=== PATIENT | female | born 1965 | race Caucasian/White ===

== ENCOUNTER 2020-05-11 08:22 | Outpatient (REF) | payer OTHER, SELFPAY ==
--- NOTE | ~2020-05-11 | MM_ITS ---
EXAMINATION: MM SCREENING DIGITAL BREAST TOMOSYNTHESIS, BILATERAL CLINICAL INFORMATION: Screening. Asymptomatic. The lifetime risk of breast cancer based on the Tyrer-Cuzick Model is 11%. COMPARISON: Mammography: 04/24/2019, 04/30/2018, 09/23/2017, 04/24/2017, targeted left breast ultrasound 09/23/2017 TECHNIQUE: Digital breast tomosynthesis is performed in both the craniocaudal and mediolateral oblique views along with computer-aided detection (CAD). Synthesized 2D images are generated from the tomosynthesis. FINDINGS: There are scattered areas of fibroglandular density (ACR BI-RADS breast composition Category b). Parenchymal pattern is similar to prior exams. There is no interval mass or architectural abnormality or developing density. Right breast shows no abnormal calcifications. The axilla and skin contours are unremarkable. There are loosely grouped punctate calcifications posterior 12:30 o'clock left breast better appreciated on CC view synthesized image. Patient will be recalled for additional magnification views to further characterize. MM/MM tomosynthesis screening BI IMPRESSION: 1. Left: Calcifications 12:30 o'clock position. 2. Right: No mammographic evidence of malignancy. ASSESSMENT: BI-RADS 0: Incomplete - Need Additional Imaging Evaluation RECOMMENDATION: 1. Additional views of the left breast (magnification CC, magnification ML). 2. Radiology department staff will contact the patient for additional imaging. This patient's information was entered into a reminder system with a target due date for their next mammogram.
== END 2020-05-11 08:23 | disposition home or self-care (01) ==
LOC: HO.MAMMO 08:22
PROVIDERS: PCP Internal Medicine; Visit Provider Internal Medicine
DX: Z12.31 Encounter for screening mammogram for malignant neoplasm of breast (principal)
CPT/HCPCS: 77063; 77067

== ENCOUNTER 2020-05-15 09:33 | Outpatient (REF) | payer OTHER, SELFPAY ==
--- NOTE | ~2020-05-15 | MM_ITS ---
EXAMINATION: MM DIAGNOSTIC DIGITAL MAMMOGRAPHY, LEFT CLINICAL INFORMATION: Recall from screening for loosely grouped calcifications 12:30 o'clock left breast COMPARISON: Mammography: 05/11/2020, 05/06/2019, 04/30/2018, 09/23/2017 TECHNIQUE: Digital mammography is performed in the following views: Magnification left CC, magnification left ML x2. FINDINGS: There are scattered areas of fibroglandular density (ACR BI-RADS breast composition Category b). The additional views show some punctate round calcifications in the area of interest 12:30 o'clock position. They appear decreased in number from the synthesized screening images recently performed, suggesting some element of superimposed digital processing artifact. There are likely unchanged since 2019. Calcifications will be reassessed again in 6 months to include magnification views. Results are discussed with the patient at time of visit. MM/MM added views LT IMPRESSION: Probable benign calcifications 12:30 o'clock position left breast. ASSESSMENT: BI-RADS 3: Probably Benign RECOMMENDATION: Diagnostic left mammography in 6 months. This patient's information was entered into a reminder system with a target due date for their next mammogram.
== END 2020-05-15 09:34 | disposition home or self-care (01) ==
LOC: HO.MAMMO 09:33
PROVIDERS: Visit Provider Internal Medicine
DX: R92.1 Mammographic calcification found on diagnostic imaging of breast (principal)
CPT/HCPCS: 77065

== ENCOUNTER 2020-11-13 11:56 | Outpatient (REF) | payer OTHER, SELFPAY ==
--- NOTE | ~2020-11-13 | MM_ITS ---
EXAMINATION: MM DIAGNOSTIC DIGITAL BREAST TOMOSYNTHESIS, LEFT CLINICAL INFORMATION: Short interval six-month follow-up probable benign calcifications 12:30 o'clock left breast. The lifetime risk of breast cancer based on the Tyrer-Cuzick Model is 11%. COMPARISON: Mammography: 05/15/2020, 05/11/2020 (BI-RADS 0), 05/06/2019, 04/30/2018, 24/04/2017, 04/24/2017 TECHNIQUE: Digital breast tomosynthesis is performed in both the craniocaudal and mediolateral oblique views along with computer-aided detection (CAD). Synthesized 2D images are generated from the tomosynthesis. Additional magnification CC x2 and magnification ML views are obtained. FINDINGS: There are scattered areas of fibroglandular density (ACR BI-RADS breast composition Category b). Parenchymal pattern is similar to prior studies. The fine calcifications 12:30 position for follow-up are stable. There are no increasing calcifications or pleomorphic types. The initial exam prompting recall likely had superimposed digital processing artifact. Calcifications will be reassessed again at time of annual bilateral exam, due in 6 months. Results are provided to the patient at time of visit by the technologist. MM/MM tomosynthesis diagnostic LT IMPRESSION: Probable benign calcifications stable. ASSESSMENT: BI-RADS 3: Probably Benign RECOMMENDATION: Diagnostic mammography at time of annual exam, due in 6 months. This patient's information was entered into a reminder system with a target due date for their next mammogram.
== END 2020-11-13 11:57 | disposition home or self-care (01) ==
LOC: HO.MAMMO 11:56
PROVIDERS: Visit Provider Internal Medicine
DX: R92.1 Mammographic calcification found on diagnostic imaging of breast (principal)
CPT/HCPCS: 77061; 77065

== ENCOUNTER 2021-05-16 12:32 | Outpatient (REF) | payer OTHER, SELFPAY ==
--- NOTE | ~2021-05-16 | MM_ITS ---
EXAMINATION: MM DIAGNOSTIC DIGITAL BREAST TOMOSYNTHESIS, BILATERAL CLINICAL INFORMATION: Follow up left breast calcifications. Yearly right breast study. The lifetime risk of breast cancer based on the Tyrer-Cuzick Model is 10.8%. COMPARISON: Mammography: November 13, 2020 and studies dating back to September 04, 2011 TECHNIQUE: Digital breast tomosynthesis is performed in both the craniocaudal and mediolateral oblique views along with computer-aided detection (CAD). Synthesized 2D images are generated from the tomosynthesis. FINDINGS: The breasts are almost entirely fatty (ACR BI-RADS breast composition Category a). There are no significant masses, abnormal calcifications, or other abnormalities. There is stability of grouping of calcifications about the upper outer aspect of the left breast. Results are provided to the patient at time of visit by the technologist. MM/MM tomosynthesis diagnostic BI IMPRESSION: There are no significant changes from prior study. ASSESSMENT: BI-RADS 3: Probably Benign RECOMMENDATION: Diagnostic mammography at time of next annual exam, due in 12 months. This patient's information was entered into a reminder system with a target due date for their next mammogram.
== END 2021-05-16 12:33 | disposition home or self-care (01) ==
LOC: HO.MAMMO 12:32
PROVIDERS: PCP Internal Medicine; Visit Provider Internal Medicine
DX: R92.1 Mammographic calcification found on diagnostic imaging of breast (principal)
CPT/HCPCS: 77062; 77066

== ENCOUNTER 2021-10-29 06:26 | Outpatient (REF) | payer OTHER, SELFPAY ==
[2021-10-29 08:28] LABS: MANUAL DIFF FLAG NO
[2021-10-29 08:34] LABS: Basophils Absolute Auto 0.1 X10*3/uL (0.0-0.2); Basophils Percent Auto 0.4 % (0-2); Eosinophils Absolute Auto 0.4 X10*3/uL (0.0-0.4); Eosinophils Percent Auto 2.7 % (0-4); Hematocrit 45.7 % (37.0-47.0); Hemoglobin 15.1 g/dl (12.0-16.0); Imm Gran Abs Auto 0.06 X10*3/uL (0.00-0.03); Imm Gran Pct Auto 0.4 % (0.0-0.4); Lymphocytes Percent Auto 28.6 % (20-40); Mean Corpuscular Hemoglobin 30.8 pg (27.0-33.0); Mean Corpuscular Volume 93.3 fL (80.0-98.0); Mean Platelet Volume 10.2 fL (9.4-12.3); Monocytes Absolute Auto 0.8 X10*3/uL (0.1-1.2); Monocytes Percent Auto 5.8 % (2-11); Neutrophils Absolute Auto 8.7 x10*3/uL (2.0-8.3); Neutrophils Percent Auto 62.1 % (45-73); Platelet Count 278 X10*3/uL (160-400); White Blood Count 13.9 X10*3/uL (4.8-10.8)
[2021-10-29 08:47] LABS: Alanine Aminotransferase 16 U/L (0-31); Albumin Level 4.3 g/dL (3.5-5.0); Alkaline Phosphatase 103 U/L (39-117); Anion Gap 14 (12-20); Aspartate Amino Transferase 20 U/L (5-31); Bilirubin Total 0.9 mg/dL (0.0-1.0); Blood Urea Nitrogen 13 mg/dL (9-16); Calcium 9.4 mg/dL (8.4-10.2); Carbon Dioxide 26 mmol/L (22-29); Chloride 105 mmol/L (96-108); Cholesterol 267 mg/dL; Estimated Glomerular Filt Rate > 60; Glucose Fasting 112 mg/dL (60-99); HDL Cholesterol 37 mg/dL; LDL Cholesterol Calculated 177 mg/dl; Potassium 4.7 mmol/L (3.3-5.1); Sodium 140 mmol/L (135-145); Total Protein 7.4 g/dL (6.5-8.0); Triglycerides 265 mg/dL
[2021-10-29 09:12] LABS: TSH reflex Free T4 1.45 uIU/mL (0.32-4.0)
== END 2021-10-29 06:27 | disposition home or self-care (01) ==
LOC: HO.HMGCLDS 06:26
PROVIDERS: Visit Provider Internal Medicine
DX: E66.09 Other obesity due to excess calories (principal); I77.9 Disorder of arteries and arterioles, unspecified; M79.89 Other specified soft tissue disorders; Z72.0 Tobacco use
CPT/HCPCS: 36415; 80053; 80061; 84443; 85025

== ENCOUNTER 2022-01-19 06:15 | Outpatient (REF) | payer OTHER, SELFPAY ==
[2022-01-19 11:20] LABS: MANUAL DIFF FLAG NO
[2022-01-19 11:45] LABS: Basophils Absolute Auto 0.1 X10*3/uL (0.0-0.2); Basophils Percent Auto 0.6 % (0-2); Eosinophils Absolute Auto 0.5 X10*3/uL (0.0-0.4); Eosinophils Percent Auto 3.9 % (0-4); Hematocrit 45.4 % (37.0-47.0); Hemoglobin 14.9 g/dl (12.0-16.0); Imm Gran Abs Auto 0.05 X10*3/uL (0.00-0.03); Imm Gran Pct Auto 0.4 % (0.0-0.4); Lymphocytes Absolute Auto 4.7 X10*3/uL (1.2-4.9); Lymphocytes Percent Auto 38.5 % (20-40); Mean Corpuscular HGB Conc 32.8 g/dl (31.0-35.0); Mean Corpuscular Volume 94.6 fL (80.0-98.0); Mean Platelet Volume 10.8 fL (9.4-12.3); Monocytes Absolute Auto 0.8 X10*3/uL (0.1-1.2); Monocytes Percent Auto 6.9 % (2-11); Neutrophils Percent Auto 49.7 % (45-73); Platelet Count 257 X10*3/uL (160-400); Red Cell Distribution Width 14.8 % (11.0-16.0); White Blood Count 12.1 X10*3/uL (4.8-10.8)
[2022-01-19 12:10] LABS: Alanine Aminotransferase 16 U/L (0-31); Anion Gap 15 (12-20); Aspartate Amino Transferase 20 U/L (5-31); Blood Urea Nitrogen 13 mg/dL (9-16); Calcium 9.4 mg/dL (8.4-10.2); Carbon Dioxide 26 mmol/L (22-29); Chloride 105 mmol/L (96-108); Cholesterol 271 mg/dL; Estimated Glomerular Filt Rate > 60; Glucose Fasting 122 mg/dL (60-99); HDL Cholesterol 36 mg/dL; LDL Cholesterol Calculated 172 mg/dl; Potassium 5.1 mmol/L (3.3-5.1); Sodium 141 mmol/L (135-145); Triglycerides 319 mg/dL
[2022-01-19 12:37] LABS: Vitamin D 25-OH Total 21.5 ng/mL (>30)
== END 2022-01-19 06:16 | disposition home or self-care (01) ==
LOC: HO.HMGCLDS 06:15
PROVIDERS: PCP Internal Medicine; Visit Provider Internal Medicine
DX: E66.09 Other obesity due to excess calories (principal); I73.9 Peripheral vascular disease, unspecified; I77.9 Disorder of arteries and arterioles, unspecified; I83.11 Varicose veins of right lower extremity with inflammation; Z72.0 Tobacco use
CPT/HCPCS: 36415; 80048; 80061; 82306; 84450; 84460; 85025

== ENCOUNTER 2022-02-16 07:33 | Outpatient (REF) | payer OTHER, SELFPAY ==
--- NOTE | ~2022-02-16 | US_ITS ---
EXAMINATION: US LOWER EXTREMITY VENOUS (REFLUX EXAM), BILATERAL CLINICAL INDICATION: Chronic venous insufficiency with lower extremity varicose veins COMPARISON: None. TECHNIQUE: Color flow triplex imaging and compression Doppler was performed to evaluate both the deep and the superficial systems bilaterally. To evaluate the superficial system, the examination was performed in the upright position. Color-flow Doppler ultrasound and compression ultrasound were utilized. In addition, maneuvers were utilized to demonstrate reflux. FINDINGS: 1. DEEP VENOUS ULTRASOUND OF THE RIGHT LOWER EXTREMITY: Common Femoral Vein: Compressible, normal respiratory variation and augmented flow. Femoral Vein: Compressible, normal color flow and augmentation. Popliteal Vein: Compressible, normal augmentation. Deep Reflux: There is no evidence of reflux in the deep system in either the common femoral vein or the popliteal vein. There is no evidence of a Issa's cyst. 2. SUPERFICIAL ULTRASOUND WITH DOPPLER OF RIGHT LOWER EXTREMITY: GREAT SAPHENOUS VEIN: Saphenofemoral Junction: 0.7 cm; Reflux: 0 ms Proximal Thigh: 0.5 cm; Reflux: 0 ms Mid Thigh: 0.2 cm; occluded Above Knee: 0.2 cm; occluded At Knee: 0.2 cm; occluded Below Knee: 0.2 cm; Reflux: 0 ms Mid Calf: 0.1 cm; Reflux: 0 ms Ankle: 0.1 cm; Reflux: 0 ms DUPLICATED MEDIAL GREAT SAPHENOUS VEIN: Diameter: None Imaged Reflux: NA DUPLICATED LATERAL GREAT SAPHENOUS VEIN: Diameter: 0.2 cm Reflux: 1546 ms SMALL SAPHENOUS VEIN: Proximal: 0.5 cm; Reflux: 0 ms Mid: 0.2 cm; reflux: 1400 ms Distal: 0.2 cm; Reflux: 0 ms VEIN OF GIACOMINI: None Imaged. PERFORATORS: Location: None Imaged Size: NA Reflux: NA VARICOSITIES: Location: Mid calf off the small saphenous vein Size: 0.4 cm Reflux: 2760 ms 3. DEEP VENOUS ULTRASOUND OF THE LEFT LOWER EXTREMITY: Common Femoral Vein: Compressible, normal respiratory variation and augmented flow. Femoral Vein: Compressible, normal color flow and augmentation. Popliteal Vein: Compressible, normal augmentation. Deep Reflux: There is no evidence of reflux in the deep system in either the common femoral vein or the popliteal vein. There is no evidence of a Issa's cyst. 4. SUPERFICIAL ULTRASOUND WITH DOPPLER OF LEFT LOWER EXTREMITY: GREAT SAPHENOUS VEIN: Saphenofemoral Junction: 0.6 cm; Reflux: 0 ms Proximal Thigh: 0.4 cm; Reflux: 2656 ms Mid Thigh: 0.3 cm; Reflux: 0 ms Above Knee: 0.2 cm; Reflux: 0 ms At Knee: 0.2 cm; Reflux: 0 ms Below Knee: 0.2 cm; Reflux: 0 ms Mid Calf: 0.1 cm; Reflux: 0 ms Ankle: 0.2 cm; Reflux: 0 ms DUPLICATED MEDIAL GREAT SAPHENOUS VEIN: Diameter: 0.3 cm Reflux: None DUPLICATED LATERAL GREAT SAPHENOUS VEIN: Diameter: None Imaged Reflux: NA SMALL SAPHENOUS VEIN: Proximal: 0.1 cm; Reflux: 0 ms Distal: 0.2 cm; Reflux: 0 ms VEIN OF GIACOMINI: None Imaged. PERFORATORS: Location: None Imaged Size: NA Reflux: NA VARICOSITIES: Location: Proximal thigh off the saphenofemoral junction and the great saphenous vein Size: 0.2 cm Reflux: Greater than 3 seconds US/US venous duplex LE BI IMPRESSION: Right: Occluded segment of the great saphenous vein through the mid and distal thigh to the knee. No significant reflux in the residual great saphenous vein. Focal area of reflux is seen in the mid small saphenous vein with associated varicose vein. Left: Focal reflux in the proximal great saphenous vein with branching varicose vein in the proximal thigh
--- NOTE | ~2022-02-16 | US_ITS ---
EXAMINATION: Noninvasive assessment of the bilateral lower extremities with ARTERIAL DUPLEX and ANKLE BRACHIAL INDICES (ABIs). CLINICAL INFORMATION: Peripheral vascular disease TECHNIQUE: Duplex Doppler techniques with waveform analysis and measurement of velocities in the bilateral common femoral, profunda femoris, superficial femoral, popliteal and tibial arteries were performed. Additionally, ankle pulse volume recordings, ankle pressure measurements and ankle brachial indices were obtained of the lower extremity arterial system bilaterally. The study was performed only at rest. COMPARISON: None FINDINGS: DIRECT DUPLEX DOPPLER FINDINGS: RIGHT LEG: Common femoral artery: 131 cm/s, phasicity: Biphasic Profunda femoris artery: 42.8 cm/s, phasicity: Biphasic Superficial femoral artery (proximal): 120 cm/s, phasicity: Biphasic Superficial femoral artery (mid): 103 cm/s, phasicity: Biphasic Superficial femoral artery (distal): 89.7 cm/s, phasicity: Biphasic Popliteal artery: 39.7 cm/s, phasicity: Biphasic Posterior tibial artery: 21 cm/s, phasicity: Monophasic. Note is also made of some retrograde flow in the more proximal posterior tibial artery Peroneal artery: 39.7 cm/s, phasicity: Monophasic, retrograde LEFT LEG: Common femoral artery: 55.0 cm/s, phasicity: Biphasic Profunda femoris artery: 103 cm/s, phasicity: Biphasic Superficial femoral artery (proximal): 41.6 cm/s, phasicity: Monophasic Superficial femoral artery (mid): 43.2 cm/s, phasicity: Monophasic Superficial femoral artery (distal): 91.1 cm/s, phasicity: Monophasic Popliteal artery: 45.6 cm/s, phasicity: Monophasic Posterior tibial artery: 21.0 cm/s, phasicity: Monophasic Peroneal artery: 23.6 cm/s, phasicity: Monophasic ANKLE-BRACHIAL INDEX: Right: 0.91? Left: 0.77 ANKLE PRESSURES: Right: PT 127, DP 141 Left: PT?119, DP?116 ANKLE PVR WAVEFORMS: Right: Abnormal Left: Abnormal US/US arterial duplex LE BI IMPRESSION: Right leg: Low-normal ankle-brachial index with dampened pulse volume waveforms. Patent flow seen in the common femoral, superficial femoral popliteal arteries. Dampened waveforms seen in the posterior tibial and peroneal arteries consistent with small vessel below-knee occlusive disease Left leg: Mildly decreased in ankle-brachial index with dampened pulse volume waveforms. Dampened monophasic waveforms and decreased velocity seen in the superficial femoral, popliteal and below-knee runoff vessels consistent with underlying occlusive disease CASTILLO Reference: - >1.4 = calcified vessels - 0.9 - 1.4 = normal - no significant arterial disease - 0.7 - 0.89 = mild peripheral arterial disease - 0.51 - 0.69 = moderate peripheral arterial disease - ? 0.50 = severe peripheral arterial disease - < .30 = critical arterial disease
== END 2022-02-16 07:34 | disposition home or self-care (01) ==
LOC: HO.US 07:33
PROVIDERS: Visit Provider Surgery Vascular Surgery
DX: I83.11 Varicose veins of right lower extremity with inflammation (principal); I77.9 Disorder of arteries and arterioles, unspecified
CPT/HCPCS: 93923; 93925; 93970

== ENCOUNTER 2022-03-11 06:05 | Day surgery (SDC) | payer OTHER, SELFPAY ==
[2022-03-11] VITALS (8 sets, daily range): BP systolic 109–122; BP diastolic 58–73; PULSE 68–72; RESP 14–18; TEMP 36.1–36.7; O2SAT 94–98; BMI 31.8
[2022-03-11 06:35] LABS: MANUAL DIFF FLAG NO
[2022-03-11 06:37] LABS: Basophils Absolute Auto 0.1 X10*3/uL (0.0-0.2); Basophils Percent Auto 0.5 % (0-2); Eosinophils Absolute Auto 0.4 X10*3/uL (0.0-0.4); Hematocrit 44.3 % (37.0-47.0); Hemoglobin 14.5 g/dl (12.0-16.0); Imm Gran Abs Auto 0.03 X10*3/uL (0.00-0.03); Imm Gran Pct Auto 0.3 % (0.0-0.4); Lymphocytes Absolute Auto 3.5 X10*3/uL (1.2-4.9); Lymphocytes Percent Auto 32.1 % (20-40); Mean Corpuscular HGB Conc 32.7 g/dl (31.0-35.0); Mean Corpuscular Hemoglobin 30.3 pg (27.0-33.0); Mean Corpuscular Volume 92.7 fL (80.0-98.0); Mean Platelet Volume 9.4 fL (9.4-12.3); Monocytes Absolute Auto 0.7 X10*3/uL (0.1-1.2); Monocytes Percent Auto 6.7 % (2-11); Neutrophils Absolute Auto 6.1 x10*3/uL (2.0-8.3); Neutrophils Percent Auto 56.4 % (45-73); Platelet Count 249 X10*3/uL (160-400); Red Blood Count 4.78 X10*6/uL (4.20-5.50); Red Cell Distribution Width 14.6 % (11.0-16.0); White Blood Count 10.9 X10*3/uL (4.8-10.8)
[2022-03-11 06:58] LABS: Blood Urea Nitrogen 12 mg/dL (9-16); Creatinine Clr Calc Pharmacy 85.2; Estimated Glomerular Filt Rate > 60
--- NOTE | 2022-03-11 09:11 | W.PM.OPN ---
Operative Note Operative Note Date of Service: 03/11/22 Narrative: Angiogram report from [facility] Preoperative diagnosis: Atherosclerosis of right lower extremity with activity limiting claudication Postoperative diagnosis: Same Procedure: 1. Ultrasound-guided left common femoral access 2. Aortogram with right lower extremity runoff 3. Right external iliac plasty Surgeon:Doron Nagy M.D., FACS, RPVI Patient Access:None Anesthesia: Local with moderate conscious sedation. Total intraservice moderate sedation time was 45 minutes. I monitored the patient's level of consciousness and physiologic status continuously throughout the procedure. Specimens:none Drains:none Estimated blood loss: Less than 10 ml Implant: Medtronic Impact DCB 6 x 40 Indications: 56-year-old female with a prior history of of claudication presents for endovascular intervention The patient has signed the informed consent after reviewing risks, complications, benefits, and alternatives previously discussed with the patient. The patient was given the opportunity to ask any additional questions or voice any concerns. All questions were answered to the patient's satisfaction. Procedure in detail: Patient was brought to the angiography suite prior to which a time-out was called for patient identification and site verification. Bilateral groins were prepped and draped in the standard surgical fashion. Under ultrasound guidance left common femoral was punctured with micro puncture needle and wire. Subsequently a precision 4 Indian sheath was then placed. Phanfareson wire was advanced to the level of the aorta. 4 Indian Flush catheter was brought up and parked at the level of the renal arteries. Aortogram was then undertaken. Catheter was brought down to the level of the iliac bifurcation. Iliacs were subsequently imaged. Catheter was then brought in up and over to the right side SFA. Runoff study was then undertaken. It was recognized that she had small caliber vessels all the way through. Concern was the right iliac tree. We then administered 5000 units of systemic heparin. After 5 minutes of circulation time a 6 Indian sheaths 25 cm in length was then placed. We brought it up just over the aortic bifurcation. We were then able to bring an 035 glidewire Advantage easily across these lesions into the common femoral and on to the SFA. Once this was all done we then took multiple orthogonal views we recognize that there was stenosis at the bifurcation but it did not appear to be flow limiting more concerning was the external iliac. This was 1st plasty with a 6 x 30 regular balloon. We then brought in a 6 x 40 drug coated balloon into the external iliac. This was brought into position in under 3 minutes and insufflated for a total of 3 minutes in duration. Once this was accomplished completion angiogram was performed. We noted a good result. Catheter wire sheath was brought back to the ipsilateral side. StarClose closure device was then deployed. Exofin was used as a sterile dressing. Patient tolerated the procedure well. At the end the case sponge instrument counts were correct. Interpretation of films: 1. Ultrasound demonstrates appropriate femoral puncture. Image of which was saved. 2. Aortogram demonstrates small caliber aorta. Minimal disease. Appropriate take-off of the renals. 3. Iliac images demonstrate disease at the bifurcation. Noted right at the worn. Stenosis on the right and left common iliac but not flow limiting. Moderate to severe right external iliac disease and stenosis. Good result post plasty. 4. Right Leg Common femoral artery: No significant disease Profundus Femoris: No significant disease Superficial femoral artery: No significant disease but small in caliber Popliteal artery (p1,p2,p3): No significant disease Anterior tibial artery: No significant disease Peroneal artery: No significant disease and dominant vessel Posterior tibial artery: Occluded Dorsalis pedis/plantar arch: Incomplete Conclusion: 1. Successful plasty of right external iliac. Of note vessels are small in caliber. 2. Anticoagulation status: Will require 6 months of aspirin and Plavix. This note is constructed using voice recognition software. While every effort has been made to ensure accuracy, corrections sergeant errors may have been included. Thank you for allowing me to participate in the care of your patient. Yours sincerely, Doron Nagy MD, FACS, R.P.V.I.
[2022-03-11] MEDS: Clopidogrel Bisulfate 300 MG TABLET PO (10:13)
== END 2022-03-11 11:19 | disposition home or self-care (01) ==
PROVIDERS: PCP Internal Medicine; Visit Provider Surgery Vascular Surgery
DX: I70.211 Atherosclerosis of native arteries of extremities with intermittent claudication, right leg (principal); I77.1 Stricture of artery; F17.210 Nicotine dependence, cigarettes, uncomplicated
CPT/HCPCS: 36415; 37220; 37224; 76937; 82565; 84520; 85025; 99152; 99153; C1725; C1760; C1769; C1887; J2250; J3010; Q9967

== ENCOUNTER → 2022-03-31 13:39 | Outpatient (BNVA) | payer OTHER, SELFPAY | PROVIDERS: PCP Internal Medicine; Visit Provider Surgery Vascular Surgery | DX: I77.9 Disorder of arteries and arterioles, unspecified (principal) ==

== ENCOUNTER 2022-05-18 14:48 | Outpatient (REF) | payer BC, SELFPAY ==
--- NOTE | ~2022-05-18 | MM_ITS ---
EXAMINATION: MM DIAGNOSTIC DIGITAL BREAST TOMOSYNTHESIS, BILATERAL CLINICAL INFORMATION: Due for yearly. Also follow-up probable benign calcifications 12:30 left breast. The lifetime risk of breast cancer based on the Tyrer-Cuzick Model is 11%. COMPARISON: Mammography: 05/16/2021, 11/13/2020, 05/15/2020, 05/11/2020 (BI-RADS 0), 05/06/2019 TECHNIQUE: Digital breast tomosynthesis is performed in both the craniocaudal and mediolateral oblique views along with computer-aided detection (CAD). Synthesized 2D images are generated from the tomosynthesis. Additional magnification left CC and magnification left ML views are obtained. FINDINGS: There are scattered areas of fibroglandular density (ACR BI-RADS breast composition Category b). Breast tissue composition borders on predominantly fatty. Background stromal and fibroglandular densities are similar to prior exams and there is no developing density or interval architectural abnormality. There are no abnormal calcifications. The axilla and skin contours are unremarkable. Left breast calcifications for follow-up are less conspicuous and decreased over time. There are no interval suspicious changes from prior diagnostic studies and they are now considered to be benign. Results are provided to the patient at time of visit by the technologist. MM/MM tomosynthesis diagnostic BI IMPRESSION: -No mammographic evidence of malignancy. -The left breast calcifications for follow-up are less conspicuous and decreased over time and now considered to be benign. ASSESSMENT: BI-RADS 2: Benign RECOMMENDATION: Routine annual mammography screening. This patient's information was entered into a reminder system with a target due date for their next mammogram.
== END 2022-05-18 14:49 | disposition home or self-care (01) ==
LOC: HO.MAMMO 14:48
PROVIDERS: PCP Internal Medicine; Visit Provider Internal Medicine
DX: R92.1 Mammographic calcification found on diagnostic imaging of breast (principal)
CPT/HCPCS: 77062; 77066

== ENCOUNTER 2022-06-09 07:50 | Outpatient (REF) | payer BC, SELFPAY ==
--- NOTE | ~2022-06-09 | US_ITS ---
EXAMINATION: ANKLE-BRACHIAL INDICES SINGLE LEVEL PULSE VOLUME RECORDING ARTERIAL DUPLEX BILATERAL LEGS CLINICAL INFORMATION: Peripheral vascular disease COMPARISON: 02/16/2022 TECHNIQUE: Ankle-brachial indices and PVR at the ankle were obtained. Duplex Doppler of the bilateral lower extremity arterial systems was performed. FINDINGS: RIGHT: Ankle-brachial index: 0.76, previous 0.91 PVR: Abnormal, dampened Common femoral: PSV 262 cm/s. Monophasic waveform. Deep femoral: PSV 70 cm/s. Monophasic waveform. Proximal superficial femoral: PSV 106 cm/s. Monophasic waveform. Mid superficial femoral: PSV 147 cm/s. Monophasic waveform. Distal superficial femoral: PSV 135 cm/s. Monophasic waveform. Popliteal: PSV 72 cm/s. Monophasic waveform. Posterior tibial: PSV 62 cm/s. Monophasic waveform. Peroneal: PSV 49 cm/s. Monophasic waveform. LEFT: Ankle-brachial index: 0.50, previous 0.77 PVR: Abnormal, dampened Common femoral: PSV 247 cm/s. Monophasic waveform. Deep femoral: PSV 80 cm/s. Monophasic waveform. Proximal superficial femoral: PSV 50 cm/s. Monophasic waveform. Mid superficial femoral: PSV 237 cm/s. Monophasic waveform. Focal occlusion. Distal superficial femoral: PSV 43 cm/s. Monophasic waveform. Popliteal: PSV 39 cm/s. Monophasic waveform. Posterior tibial: PSV 39 cm/s. Monophasic waveform. Peroneal: PSV 46 cm/s. Monophasic waveform. US/US arterial duplex LE BI IMPRESSION: Evidence of hemodynamically significant aortoiliac inflow disease (monophasic waveforms in both common femoral arteries). Right lower extremity: CASTILLO 0.76 (previous 0.91), abnormal PVR waveform. On Doppler diffuse monophasic waveforms throughout the lower extremity consistent with inflow disease. There is at least mild femoropopliteal disease. Left lower extremity: CASTILLO 0.50 (previous 0.77), abnormal PVR waveform. On Doppler diffuse monophasic waveforms throughout the lower extremity consistent with inflow disease. There is a focal occlusion in the mid superficial femoral artery with distal reconstitution.
--- NOTE | ~2022-06-09 | US_ITS ---
EXAMINATION: US RETROPERITONEAL LIMITED (AORTA) CLINICAL INFORMATION: Question abdominal aortic aneurysm; history of hypertension, tobacco use and diabetes. COMPARISON: None TECHNIQUE: Pressley-scale, color Doppler and spectral Doppler evaluation of the abdominal aorta. FINDINGS: The aorta is normal. The measurements of the aorta in maximum AP and transverse dimensions respectively are as follows: Proximal: 2.3 x 2.3 cm. Mid: 1.3 x 1.6 cm. Distal: 1.4 x 1.4 cm. PSV: 9.3 cm/s. The measurements of the common iliac arteries in maximum AP dimensions are as follows: Right Common Iliac Artery: 0.7 cm. Left Common Iliac Artery: 0.6 cm. US/US abdominal aortic aneurysm IMPRESSION: No abdominal aortic aneurysm is seen.
--- NOTE | ~2022-06-09 | US_ITS ---
EXAMINATION: ANKLE-BRACHIAL INDICES SINGLE LEVEL PULSE VOLUME RECORDING ARTERIAL DUPLEX BILATERAL LEGS CLINICAL INFORMATION: Peripheral vascular disease COMPARISON: 02/16/2022 TECHNIQUE: Ankle-brachial indices and PVR at the ankle were obtained. Duplex Doppler of the bilateral lower extremity arterial systems was performed. FINDINGS: RIGHT: Ankle-brachial index: 0.76, previous 0.91 PVR: Abnormal, dampened Common femoral: PSV 262 cm/s. Monophasic waveform. Deep femoral: PSV 70 cm/s. Monophasic waveform. Proximal superficial femoral: PSV 106 cm/s. Monophasic waveform. Mid superficial femoral: PSV 147 cm/s. Monophasic waveform. Distal superficial femoral: PSV 135 cm/s. Monophasic waveform. Popliteal: PSV 72 cm/s. Monophasic waveform. Posterior tibial: PSV 62 cm/s. Monophasic waveform. Peroneal: PSV 49 cm/s. Monophasic waveform. LEFT: Ankle-brachial index: 0.50, previous 0.77 PVR: Abnormal, dampened Common femoral: PSV 247 cm/s. Monophasic waveform. Deep femoral: PSV 80 cm/s. Monophasic waveform. Proximal superficial femoral: PSV 50 cm/s. Monophasic waveform. Mid superficial femoral: PSV 237 cm/s. Monophasic waveform. Focal occlusion. Distal superficial femoral: PSV 43 cm/s. Monophasic waveform. Popliteal: PSV 39 cm/s. Monophasic waveform. Posterior tibial: PSV 39 cm/s. Monophasic waveform. Peroneal: PSV 46 cm/s. Monophasic waveform. US/US CASTILLO complete IMPRESSION: Evidence of hemodynamically significant aortoiliac inflow disease (monophasic waveforms in both common femoral arteries). Right lower extremity: CASTILLO 0.76 (previous 0.91), abnormal PVR waveform. On Doppler diffuse monophasic waveforms throughout the lower extremity consistent with inflow disease. There is at least mild femoropopliteal disease. Left lower extremity: CASTILLO 0.50 (previous 0.77), abnormal PVR waveform. On Doppler diffuse monophasic waveforms throughout the lower extremity consistent with inflow disease. There is a focal occlusion in the mid superficial femoral artery with distal reconstitution.
== END 2022-06-09 07:51 | disposition home or self-care (01) ==
LOC: HO.US 07:50
PROVIDERS: PCP Internal Medicine; Visit Provider Surgery Vascular Surgery
DX: I70.213 Atherosclerosis of native arteries of extremities with intermittent claudication, bilateral legs (principal); E11.9 Type 2 diabetes mellitus without complications; I10 Essential (primary) hypertension; Z72.0 Tobacco use
CPT/HCPCS: 76706; 93923; 93925

== ENCOUNTER → 2022-06-11 15:17 | Outpatient (BNVA) | payer BC, SELFPAY | PROVIDERS: PCP Internal Medicine; Visit Provider Surgery Vascular Surgery | DX: Z13.89 Encounter for screening for other disorder (principal) ==

== ENCOUNTER → 2022-09-10 14:48 | Outpatient (BNVA) | payer BC, SELFPAY | PROVIDERS: PCP Internal Medicine; Visit Provider Surgery Vascular Surgery ==

== ENCOUNTER 2022-11-30 08:46 | Outpatient (REF) | payer BC, SELFPAY ==
--- NOTE | ~2022-11-30 | US_ITS ---
EXAMINATION: ANKLE-BRACHIAL INDICES SINGLE LEVEL PULSE VOLUME RECORDING ARTERIAL DUPLEX BILATERAL LEGS CLINICAL INFORMATION: Peripheral vascular disease COMPARISON: 06/09/2022 TECHNIQUE: Ankle-brachial indices and PVR at the ankle were obtained. Duplex Doppler of the bilateral lower extremity arterial systems was performed. FINDINGS: RIGHT: Ankle-brachial index: 0.92, previous 0.76 PVR: Abnormal, dampened Common femoral: PSV 119 cm/s. Monophasic waveform. Deep femoral: PSV 87 cm/s. Monophasic waveform. Proximal superficial femoral: PSV 80 cm/s. Monophasic waveform. Mid superficial femoral: PSV 130 cm/s. Monophasic waveform. Distal superficial femoral: PSV 96 cm/s. Monophasic waveform. Popliteal: PSV 55 cm/s. Monophasic waveform. Posterior tibial: PSV 38 cm/s. Monophasic waveform. Peroneal: PSV 31 cm/s. Monophasic waveform. LEFT: Ankle-brachial index: 0.71, previous 0.50 PVR: Abnormal, dampened Common femoral: PSV 84 cm/s. Monophasic waveform. Deep femoral: PSV 105 cm/s. Monophasic waveform. Proximal superficial femoral: PSV 67 cm/s. Monophasic waveform. Mid superficial femoral: PSV 19 cm/s. Monophasic waveform. Distal superficial femoral: PSV 27 cm/s. Monophasic waveform. Popliteal: PSV 49 cm/s. Monophasic waveform. Posterior tibial: PSV 33 cm/s. Monophasic waveform. Peroneal: PSV 22 cm/s. Monophasic waveform. US/US arterial duplex LE BI IMPRESSION: Right lower extremity: CASTILLO 0.92 (previous 0.76), abnormal PVR waveform. On Doppler diffuse monophasic waveforms throughout the lower extremity consistent with inflow disease. There is at least mild femoropopliteal disease. Left lower extremity: CASTILLO 0.71 (previous 0.50), abnormal PVR waveform. On Doppler diffuse monophasic waveforms throughout the lower extremity consistent with inflow disease. There is at least moderate mid superficial femoral artery disease.
--- NOTE | ~2022-11-30 | US_ITS ---
EXAMINATION: US RETROPERITONEAL LIMITED (AORTA) CLINICAL INFORMATION: Disorder of arteries and arterioles. COMPARISON: 06/09/2022 TECHNIQUE: Pressley-scale, color Doppler and spectral Doppler evaluation of the abdominal aorta and iliac arteries. FINDINGS: The aorta is atherosclerotic. Proximal: 2.5 cm. PSV 69 cm/s. Mid: 1.5 cm. PSV 77 cm/s. Distal: 1.7 cm. PSV 144 cm/s. The iliac arteries are atherosclerotic. Right Common Iliac Artery: PSV 187 cm/s. Biphasic waveform. Right External Iliac Artery: PSV 192 cm/s. Triphasic waveform. Left Common Iliac Artery: PSV 77 cm/s. Monophasic waveform. Left External Iliac Artery: PSV 130 cm/s. Biphasic waveform. US/US abdominal aortic aneurysm IMPRESSION: Negative for abdominal aortic aneurysm. Iliac atherosclerosis with suspected collateralized bilateral common iliac level disease.
== END 2022-11-30 08:47 | disposition home or self-care (01) ==
LOC: HO.US 08:46
PROVIDERS: PCP Internal Medicine; Visit Provider Surgery Vascular Surgery
DX: I77.9 Disorder of arteries and arterioles, unspecified (principal); I73.9 Peripheral vascular disease, unspecified
CPT/HCPCS: 76706; 93925

== ENCOUNTER 2022-12-17 13:53 | Outpatient (AMB) | payer BC, SELFPAY ==
--- NOTE | 2022-12-17 13:54 | MHC.OFFVIS ---
Intake Intake Visit Reasons: Follow Up 11/30 Arterial Ultrasound Intake Note: 3 mo follow up Arterial US 11/30/22 s/p Right angio 03/11/22. Pt states that bilateral LE are still painful and has Right LE swelling. Pt has pain w/ ambulation only Accompanied by: Nephew or Niece Allergies No Known Allergies Allergy (Verified 12/17/22 13:59) HPI Follow Up 11/30 Arterial Ultrasound HPI Details Very pleasant 57-year-old female presents for follow-up regarding peripheral vascular disease. She originally had right lower extremity intervention by us performed in March of 2022. In addition she has had prior back in spinal issues as well. After our initial intervention she did note mild improvement. It has gone back to wear was before clinically. She can barely walk about a half block. She notes that the pain is right greater than left. She now presents for follow-up with noninvasive testing. Of note she continues to smoke about a half a pack per day. [facility] Medical History Vitamin D deficiency Impaired fasting glucose Mixed dyslipidemia Varicose veins of right lower extremity with inflammation Claudication Tobacco abuse Obesity due to excess calories Surgical History Hx of colonoscopy Peripheral arterial occlusive disease Social History Housing: House Patient Tobacco Use Status: Current everyday Tobacco user Cigarettes Per Day: 10 e-Cigarette/Vaping Use: Never Used Second Hand Smoke Exposure: Yes service: No Current occupational status: employed Current occupational exposures/hazards: No Cognitive needs: No Hearing needs: No Vision needs: No Review of Systems Const All systems reviewed & are unremarkable except as noted in HPI and below Reports no additional complaints ENT Reports Normal hearing present Card Denies chest pain, Denies chest pain at rest, Denies chest pain with activity and Denies pedal edema Resp Denies cough GI Denies abdominal pain Musc Denies abnormal gait, Denies muscle cramps and Denies radiating pain into limb Skin/Breast Denies skin ulcer and Denies wounds Neuro Reports Normal hearing present and Denies abnormal gait Psych Reports no additional complaints Physical Exam Const General: cooperative, healthy appearing and comfortable Orientation/consciousness: oriented to person, oriented to place and oriented to time HEENT Head: Yes normal to inspection Neck Neck: Yes normal visual inspection Carotids: no bruits Chest Chest palpation & inspection: normal inspection of the chest Resp Effort & Inspection: normal respiratory effort and able to speak in complete sentences Auscultation: clear to auscultation bilaterally, no crackles, no rales, no rhonchi and no wheezes Cardio Other: Bilateral DP signals Rate: regular rate Rhythm: regular rhythm Heart sounds: S1 normal heart sound present and S2 normal heart sound present Bruits: no carotid bruits Peripheral pulses: Peripheral pulses 2+ throughout GI Inspection: Yes normal to inspection Skin Wounds: no wounds Hair: normal Neuro General: oriented to person, oriented to place and oriented to time Cranial nerves: Yes CN's II-XII intact bilaterally and Yes Normal hearing present Cognition (Neuro): normal cognition Motor exam (neuro): 5/5 motor strength present throughout Extrem Other: venous exam: No significant superficial varicosities or spider telangiectasias, minimal edema General: No clubbing, No cyanosis and No edema Psych Appearance: grossly normal Mental Status: mental status grossly normal Speech and movement: Normal speech and movement present Results Reviewed Results Reviewed: Noninvasive testing dated 11/30/2022 demonstrates CASTILLO on the right of 0.92 and on the left of 0.71 on direct ultrasound it is monophasic waveforms. Assessment & Plan Assessment & Plan (1) Peripheral arterial occlusive disease: Comment: 03/11/2022 right external iliac plasty Code(s): I77.9 - Disorder of arteries and arterioles, unspecified Plan: In short the patient has peripheral vascular disease. I do believe symptomatic clean clinically she is progressively getting worse. I have taken the liberty of ordering a CT angiogram to better elucidate the true degree of stay disease. We will have her follow-up after testing. Thank you for allowing us to participate in her care. If there are any questions or concerns please do not hesitate to contact us. The patient had an opportunity to ask questions regarding the treatment plan. All questions were answered. Imaging studies, laboratory studies and physical exam results were discussed and reviewed in detail. No major barriers to understanding were identified. The patient expressed understanding and agreement with the above treatment plan. The patient is aware they should contact our office by phone for worsening of the current condition or the appearance of new symptoms. Thank you for allowing me to participate in the vascular care of this patient. If you have any questions or concerns regarding the treatment for the above condition please do not hesitate to contact me. The office telephone contact is [phone]. This note is constructed using voice recognition software. While every effort has been made to ensure accuracy, technology and engineering teacher errors may have been included. Thank you for allowing me to participate in the care of your patient. Yours sincerely, Doron Nagy MD, FACS, R.P.V.I. Orders: Orders Blood Urea Nitrogen Today I83.11 - Varicose veins of right lower extremity with inflammation CT angio abd aorta runoff 1 Week I83.11 - Varicose veins of right lower extremity with inflammation Creatinine Today I83.11 - Varicose veins of right lower extremity with inflammation Coding Level of Care Code Est Pt Level 4 (33629) Diagnoses Peripheral arterial occlusive disease I77.9
== END 2022-12-17 14:14 | disposition home or self-care (01) ==
PROVIDERS: PCP Internal Medicine; Visit Provider Surgery Vascular Surgery
DX: I77.9 Disorder of arteries and arterioles, unspecified (principal); Z98.62 Peripheral vascular angioplasty status
CPT/HCPCS: 99214

== ENCOUNTER → 2022-12-17 13:53 | Outpatient (BNVA) | payer BC, SELFPAY | PROVIDERS: PCP Internal Medicine; Visit Provider Surgery Vascular Surgery ==

== ENCOUNTER 2023-01-14 10:48 | Outpatient (AMB) | payer BC, SELFPAY ==
--- NOTE | 2023-01-14 11:06 | A.OFFPC_ITS ---
Vital Signs 01/14/23 11:10 Height 5 ft 6 in Weight 203 lb BMI 32.8 BP 112/60 Blood Pressure Location Rt brachial Position Sitting Pulse 50 Pulse Source Pulse Oximeter Pulse Oximetry (%) 96 Oxygen Delivery Method Room Air Intake Visit Reasons: Physical Intake Note: patient is here today for her physical Allergies No Known Allergies Allergy (Verified 01/14/23 11:35) Medication List - Last Reconciled 01/14/23 by Maureen Solano MD amitriptyline 25 mg PO BEDTIME aspirin (Adult Aspirin Regimen) 81 mg PO DAILY furosemide (Lasix) 20 mg PO QAM gabapentin mg PO omega-3 fatty acids 1,250 mg PO BID propranolol ER 120 mg PO DAILY Tobacco use date assessed: 01/14/23 Dental Screening Dental Screen Date: 01/14/23 Did you have a dental visit in the last 12 months?: Yes Did you have a dental problem in the last 6 months where you did not have access to dental care?: No Was dental information given to patient?: Patient has dentist HPI Physical HPI Details 57-year-old lady with mixed dyslipidemia , obesity, peripheral arterial disease, and prediabetes here today for physical exam. She is up-to-date with her screening colonoscopy due again in 2027, has an appointment for mammogram already scheduled, Pap smear to be done today. She has peripheral arterial disease, currently being followed by Dr. Nagy, has an appointment for a CT angiogram of both lower extremities scheduled later. Continues to smoke cigarettes, but has cut down to just 10 cigarettes a day, unable to quit completely She has a growing skin lesion on her left upper back, occasionally itches, has an appointment already see Dr. Lenz in April 2023. Complains of difficulty swallowing both solids and liquids, even medication, sometimes would get stuck in the middle of throat [facility] Medical History (Updated 01/14/23 @ 12:06 by Maureen Solano MD) Difficulty swallowing Vitamin D deficiency Impaired fasting glucose Mixed dyslipidemia Varicose veins of right lower extremity with inflammation Claudication Tobacco abuse Obesity due to excess calories Surgical History Hx of colonoscopy Peripheral arterial occlusive disease Social History Housing: House Patient Tobacco Use Status: Current everyday Tobacco user Cigarettes Per Day: 10 e-Cigarette/Vaping Use: Never Used Second Hand Smoke Exposure: Yes service: No Current occupational status: employed Current occupational exposures/hazards: No Cognitive needs: No Hearing needs: No Vision needs: No Questionnaire PHQ-9 Over the last 2 weeks, how often have you been bothered by any of the following problems? 1. Little interest or pleasure in doing things: not at all 2. Feeling down, depressed, or hopeless: not at all 3. Trouble falling or staying asleep, or sleeping too much: several days 4. Feeling tired or having little energy: not at all 5. Poor appetite or overeating: not at all 6. Feeling bad about yourself - or that you are a failure or have let yourself or your family down: not at all 7. Trouble concentrating on things, such as reading the newspaper or watching television: not at all 8. Moving or speaking so slowly that other people could have noticed. Or the opposite - being so fidgety or restless that you have been moving around a lot more than usual: not at all 9. Thoughts that you would be better off or of hurting yourself in some way: not at all Total score: 1 Depression Screening Interpretation: Negative Depression Screening Done: Yes 03006 - PHQ-9 Billing: Yes Source: Developed by Drs. Ozzie Brandon, Ely Prado, Twin Loaiza and colleagues, with an educational chetna from [employer]. Thrive Questionnaire Date Thrive assessed: 01/14/23 I am a: Patient What is your living situation today?: I have a steady place to live Within the past 12 months, did the food you bought not last and you didn't have the money to get more?: Never true Within the past 12 months, did you worry whether your food would run out before you got money to buy more?: Never true Do you have trouble paying for medicines?: No Do you have trouble getting transportation to medical appointments?: No Do you have trouble paying your heating and electricity bill?: No Do you have trouble taking care of your child, family member or friend?: No Do you have trouble with day-to-day activities such as bathing, preparing meals, shopping, managing finances, etc.?: No Are you currently unemployed and looking for a job?: No Are you interested in more education?: No Please select the resources that you would like help with: None AUDIT C Alcohol Use Questionnaire (AUDIT-C) 1. How often do you have a drink containing alcohol?: Never Total Score: 0 PURNIMA-7 AMB Questionnaire PURNIMA-7 Date PURNIMA - 7 assessed: 01/14/23 Feeling nervous, anxious, or on edge: 0 = Not at all Not being able to stop or control worryin = Not at all Worrying too much about different things: 0 = Not at all Trouble relaxin = Not at all Being so restless that it is hard to sit still: 0 = Not at all Becoming easily annoyed or irritable: 0 = Not at all Feeling afraid as if something awful might happen: 0 = Not at all Total PURNIMA-7 score (0-4 normal; 5-9 mild; 10-14 moderate; 15-21 severe): 0 Source: Developed by Drs. Ozzie Brandon, Ely Prado, Twin Loaiza and colleagues, with an educational chetna from [employer]. PURNIMA-7 Assessment Billing PURNIMA-7 Assessment Tool: PURNIMA-7 Assessment 10040 Review of Systems Const All systems reviewed & are unremarkable except as noted in HPI and below Reports no additional complaints Eyes Details: Goes to lens [employer] Reports no additional complaints ENT Reports as per HPI and Reports Normal hearing present Card Denies chest pain, Denies chest pain at rest, Denies chest pain with activity, Reports claudication, Reports leg edema (Were start sent today), Denies dyspnea and Denies dyspnea on exertion Resp Denies cough, Denies dyspnea and Denies dyspnea on exertion GI Reports as per HPI, Denies abdominal pain, Denies melena, Denies hematochezia, Denies change in bowel habits, Denies heartburn and Denies nausea Reports no additional complaints Musc Denies abnormal gait, Denies muscle cramps and Denies radiating pain into limb Skin/Breast Denies skin ulcer and Denies wounds Neuro Reports Normal hearing present and Denies abnormal gait Psych Reports no additional complaints Endo Reports no additional complaints Clement/Lymph Reports no additional complaints Aller/Immun Reports no additional complaints Physical exam (Primary Care) Vital Signs: Last Vital Signs Pulse 50 01/14/23 11:10 BP 112/60 01/14/23 11:10 Pulse Ox 96 01/14/23 11:10 Oxygen Delivery Method Room Air 01/14/23 11:10 BMI result Body Mass Index 32.8 BMI Assessment/Plan discussion: High BMI High, discussed plan: lifestyle, weight reduction, dietary and physical activity Tobacco/Smoking Status: Tobacco use Status Tobacco use date assessed 01/14/23 01/14/23 11:12 Patient Tobacco Use Status Current everyday Tobacco 01/14/23 11:12 e-Cigarette/Vaping Use Never Used 01/14/23 11:12 Are you ready to quit: No Tobacco cessation counseling provided: Yes PHQ-9: PHQ-9 Score PHQ-9: Total score 1 01/14/23 12:05 Depression Screening Interpretation: Negative Thrive Assessment: Date of Thrive Assessment Date Thrive assessed 01/14/23 01/14/23 12:05 Const General: comfortable, no acute distress and Physically active Nutritional Appearance: obese Orientation/consciousness: patient oriented x3 HENMT Ears: hearing grossly normal bilaterally, external ears normal, TM's normal bilaterally and EAC's normal General nose exam: Normal external nose present and No nasal discharge present Face and sinus: Yes sinuses nontender and Yes face symmetric Mouth: Normal oral and palatal mucosa present, oropharynx normal and moist mucous membranes Eyes General: appearance normal, both eyes and all related structures Neck Neck: Yes full ROM, Yes no lymphadenopathy and Yes supple Chest Breast/axilla palpation: normal palpation of the breasts Resp Effort & Inspection: normal respiratory effort and able to speak in complete sentences Auscultation: clear to auscultation bilaterally Cardio Other: Faint dorsalis pedis pulses and posterior tibial pulses palpated Rate: regular rate Rhythm: regular rhythm Heart sounds: S1 normal heart sound present and S2 normal heart sound present Peripheral pulses: other (Decreased dorsalis pedis pulse ) GI Palpation (GI): Soft to palpation, nontender, no guarding and no masses Auscultation: normal bowel sounds General: Yes bladder normal to palpation and Yes no CVA tenderness External Female Exam: normal external appearance and normal appearance of the urethra Speculum Exam - Vagina: normal appearance of the vagina, normal palpation and normal vaginal discharge Speculum Exam - Cervix: normal appearance of the cervix, normal palpation and Cervical os open Bimanual exam- vagina & uterus: normal palpation, bladder normal to palpation, normal palpation and non-tender Bimanual Exam- Adnexa, other: normal adnexae, no masses, normal and No adnexal tenderness OB/external & speculum: Cervical os open Back/Spine/Pelvis Back: no CVA tenderness Skin Other: Black raised lesion on left upper back Neuro General: patient oriented x3, gait normal, moves all extremities, no focal motor deficits and CN's II-XI intact bilaterally Cranial nerves: Yes Normal hearing present Cognition (Neuro): normal cognition Extrem General: Yes full ROM, Yes no clubbing, cyanosis or edema, Yes no calf tenderness and Yes normal gait Psych Appearance: grossly normal and well kempt Mental Status: mental status grossly normal Speech and movement: Normal speech and movement present Affect: normal affect Attitude: cooperative Office Procedures Flu Questionnaire Does the patient have a severe egg allergy?: No Does the patient have severe life threatening allergies?: No Does the patient have a fever or illness today?: No Has the patient ever had Guillain-Means Syndrome?: No Has the patient ever had any past reaction to a flu shot?: No Immunizations flu vacc [id number] 6mos up(PF) 60 mcg(15 mcgx4)/0.5 mL IM syringe Performing Provider: Maureen Solano MD Performing Location: [facility] Administered by: Betsy Pitts CMA on 01/14/23 12:08 Dose Route Admin Location Dispensed Lot Number Expiration Date NDC Customer Liaison 0.5 mL IM Left Deltoid 0.5 mL [id number] 10/03/23 86413-019-49 [employer] VIS Given Date VIS Provided VIS Publication Date 01/14/23 Single Vaccine 20 Eligibility Eligibility Date Funding Source Not [facility] Eligible 01/14/23 Private Assessment and Plan Assessment & Plan (1) Annual visit for general adult medical examination with abnormal findings: Code(s): Z00.01 - Encounter for general adult medical examination with abnormal findings Plan: Will check appropriate labs. Continue dental visit every 4 months and regular eye exams, at least every 2 years, sees lens craft ers Take adequate calcium in diet and vitamin-D 3 at 2000 IU per cap once a day, in addition to weight- bearing exercises to help maintain good muscle tone and weight control. Instructed to do self-breast exam, and contain to get yearly mammogram, ready scheduled. Cervical cancer screening done today, Pap done . Flu shot given today, advised to get her COVID booster, up-to-date with her shingles vaccine Tdap. Up-to-date with her screening colonoscopy due again in 2027 (2) Cervical cancer screening: Code(s): Z12.4 - Encounter for screening for malignant neoplasm of cervix Plan: Pap smear done today (3) Impaired fasting glucose: Code(s): R73.01 - Impaired fasting glucose Plan: Your fasting blood sugars elevated above 100 mg/dL. Impaired glucose metabolism O2 at risk for developing diabetes mellitus type 2, as well as heart attack and stroke later on. Lifestyle changes at just weight loss, healthy eating habits, and regular exercise are important, and can prevent the progression to diabetes (4) Mixed dyslipidemia: Code(s): E78.2 - Mixed hyperlipidemia Plan: fasting lipid profile ordered . Continue with [place] 3 fatty acid supplement , in addition to adherence to low-cholesterol diet and regular exercise, at least 30 minutes 3 to 4 times a week. Advised patient to make healthy food choices, eat more fruits, vegetables, whole grains, wild caught fish and low-fat dairy. Limit amount of meat and fried or fatty food products, as well as processed foods and fast foods. (5) Peripheral arterial occlusive disease: Comment: 03/11/2022 right external iliac plasty Code(s): I77.9 - Disorder of arteries and arterioles, unspecified Plan: Followed by Dr. Nagy, scheduled for CT angiogram later this month. Strongly advised to quit smoking, get cholesterol and sugar levels and blood pressure under control (6) Obesity due to excess calories: Code(s): E66.09 - Other obesity due to excess calories Plan: Recommended focusing on improving your health instead of dieting. : Eat Mediterranean diet, limit foods high in fat, sugar, and calories, eat slowly, pay attention to portion sizes, plan your meals ahead of time, start regular physical activity 150 minutes of moderate intensity exercise or 90 minutes/week of vigorous exercise and increase water intake. Orders: Orders Pap Smear Today Z12.4 - Encounter for screening for malignant neoplasm of cervix Lipid Panel Today E55.9 - Vitamin D deficiency, unspecified, E66.09 - Other obesity due to excess calories, E78.2 - Mixed hyperlipidemia, I77.9 - Disorder of arteries and arterioles, unspecified, R73.01 - Impaired fasting glucose, Z00.01 - Encounter for general adult medical examination with abnormal findings Basic Metabolic Panel Fasting Today E55.9 - Vitamin D deficiency, unspecified, E66.09 - Other obesity due to excess calories, E78.2 - Mixed hyperlipidemia, I77.9 - Disorder of arteries and arterioles, unspecified, R73.01 - Impaired fasting glucose, Z00.01 - Encounter for general adult medical examination with abnormal findings Hemoglobin A1c Today E55.9 - Vitamin D deficiency, unspecified, E66.09 - Other obesity due to excess calories, E78.2 - Mixed hyperlipidemia, I77.9 - Disorder of arteries and arterioles, unspecified, R73.01 - Impaired fasting glucose, Z00.01 - Encounter for general adult medical examination with abnormal findings Aspartate Amino Transferase Today E55.9 - Vitamin D deficiency, unspecified, E66.09 - Other obesity due to excess calories, E78.2 - Mixed hyperlipidemia, I7 7.9 - Disorder of arteries and arterioles, unspecified, R73.01 - Impaired fasting glucose, Z00.01 - Encounter for general adult medical examination with abnormal findings Vitamin D 25-OH Total Today E55.9 - Vitamin D deficiency, unspecified, E66.09 - Other obesity due to excess calories, E78.2 - Mixed hyperlipidemia, I77.9 - Disorder of arteries and arterioles, unspecified, R73.01 - Impaired fasting glucose, Z00.01 - Encounter for general adult medical examination with abnormal findings Alanine Aminotransferase Today E55.9 - Vitamin D deficiency, unspecified, E66.09 - Other obesity due to excess calories, E78.2 - Mixed hyperlipidemia, I77.9 - Disorder of arteries and arterioles, unspecified, R73.01 - Impaired fasting glucose, Z00.01 - Encounter for general adult medical examination with abnormal findings FL barium swallow Today R13.10 - Dysphagia, unspecified Influenza [id number] Immunization Today Z23 - Encounter for immunization Medications: New flu vacc [id number] 6mos up(PF) 0.5 mL IM ONCE 0.5 mL 0RF Z23 - Encounter for immunization Coding Level of Care Code Est Pt Prev Care 40-64y(75253) Diagnoses Annual visit for general adult medical examination with abnormal findings Z00.01 Cervical cancer screening Z12.4 Impaired fasting glucose R73.01 Mixed dyslipidemia E78.2 Peripheral arterial occlusive disease I77.9 Obesity due to excess calories E66.09 Additional Codes PURNIMA-7 Assessment Billing - PURNIMA-7 Assessment Tool: PURNIMA-7 Assessment 52328 ([id number])
[2023-01-14 11:10] VITALS: BP 112/60; PULSE 50; O2SAT 96; BMI 32.8
== END 2023-01-14 12:13 | disposition home or self-care (01) ==
PROVIDERS: Visit Provider Internal Medicine
DX: Z00.01 Encounter for general adult medical examination with abnormal findings (principal); Z12.4 Encounter for screening for malignant neoplasm of cervix; I77.9 Disorder of arteries and arterioles, unspecified; R73.01 Impaired fasting glucose; Z23 Encounter for immunization; E78.2 Mixed hyperlipidemia; E66.09 Other obesity due to excess calories
CPT/HCPCS: 90471; 90686; 99396

== ENCOUNTER 2023-01-14 12:02 | Outpatient (REF) | payer BC, SELFPAY ==
[2023-01-19 11:34] LABS: HPV mRNA E6/E7 rflx Not Detected (Not Detected)
== END 2023-01-14 12:03 | disposition home or self-care (01) ==
LOC: HO.LAB 12:02
PROVIDERS: Visit Provider Internal Medicine
DX: R13.10 Dysphagia, unspecified (principal); Z12.4 Encounter for screening for malignant neoplasm of cervix
CPT/HCPCS: 87624; 88142

== ENCOUNTER 2023-01-19 06:05 | Outpatient (REF) | payer BC, SELFPAY ==
[2023-01-19 11:55] LABS: Estimated Average Glucose 123 mg/dL; Hemoglobin A1c % 5.9 % (<6.0)
[2023-01-19 12:23] LABS: Alanine Aminotransferase 19 U/L (0-31); Anion Gap 16 (12-20); Aspartate Amino Transferase 22 U/L (5-31); Blood Urea Nitrogen 12 mg/dL (9-16); Calcium 9.5 mg/dL (8.4-10.2); Carbon Dioxide 23 mmol/L (22-29); Chloride 106 mmol/L (96-108); Cholesterol 256 mg/dL (<200); Estimated Glomerular Filt Rate > 60; Glucose Fasting 107 mg/dL (60-99); HDL Cholesterol 36 mg/dL (>40); LDL Cholesterol Calculated 173 mg/dL (<100); Potassium 4.7 mmol/L (3.3-5.1); Sodium 140 mmol/L (135-145); Triglycerides 236 mg/dL (<150)
[2023-01-19 12:26] LABS: Vitamin D 25-OH Total 53.3 ng/mL (>30)
== END 2023-01-19 06:06 | disposition home or self-care (01) ==
LOC: HO.HMGCLDS 06:05
PROVIDERS: Absent Provider Surgery Vascular Surgery; PCP Internal Medicine; Visit Provider Internal Medicine
DX: Z00.01 Encounter for general adult medical examination with abnormal findings (principal); R73.01 Impaired fasting glucose; E78.2 Mixed hyperlipidemia; I77.9 Disorder of arteries and arterioles, unspecified; E66.09 Other obesity due to excess calories; E55.9 Vitamin D deficiency, unspecified
CPT/HCPCS: 36415; 80048; 80061; 82306; 83036; 84450; 84460

== ENCOUNTER 2023-01-20 08:44 | Outpatient (REF) | payer BC, SELFPAY ==
--- NOTE | ~2023-01-20 | CT_ITS ---
EXAMINATION: CT ANGIOGRAM ABDOMEN AND PELVIS WITH RUN-OFF CLINICAL INFORMATION: Peripheral vascular disease. COMPARISON: None TECHNIQUE: Multiple axial images were obtained through the abdomen, pelvis, and lower extremities following the administration of 100 mL of Omnipaque 350 intravenous contrast. Sagittal, coronal, and MIP oblique sagittal reformatted images were obtained on the CT workstation, uploaded to PACS, and reviewed. Images were evaluated on independent dedicated 3-D workstation and 3-D images were reconstructed with concurrent radiologist supervision and subsequently interpreted. This CT examination was performed using dose optimization techniques as appropriate, variously including the following: *Automated exposure control *Adjustment of mA and/or kV according to patient size (this includes techniques or standardized protocols for targeted exams where dose is matched to indication/reason for exam; i.e. extremities or head) *Use of iterative reconstruction technique DLP: 807 mGy-cm FINDINGS: VASCULATURE: Aorta: Normal in caliber. Diffuse calcified and noncalcified plaque without significant stenosis. Celiac axis, superior mesenteric artery, inferior mesenteric artery and bilateral renal arteries are patent without significant stenosis. Right iliac arteries: Calcified and noncalcified plaque is causing diffuse moderate stenosis of the right common iliac artery. The external iliac artery demonstrates diffuse calcified plaque with mild stenosis. The internal iliac artery is patent Left iliac arteries: Diffuse calcified and noncalcified plaque is causing diffuse mild stenosis of the left common iliac artery and external iliac artery. Internal iliac artery is patent Right lower extremity: Common femoral artery demonstrates atherosclerotic plaque without significant stenosis. Scattered calcified plaque seen in the superficial femoral artery with moderate to severe stenosis at the level the adductor canal. Popliteal artery demonstrates mild calcified plaque without significant stenosis. Below knee runoff demonstrates patent flow in the anterior tibial artery, and peroneal artery without significant stenosis. Posterior tibial artery is occluded. There are some intermittent areas of reconstitution in the mid to distal calf within the posterior tibial artery. Note is made of multiple subcutaneous varicose veins in the posterior calf Left lower extremity: Common femoral artery demonstrates atherosclerotic plaque without significant stenosis. There is chronic total occlusion of the superficial femoral artery. The mid to distal thigh extending through the adductor canal. The more proximal superficial femoral artery is diffusely small in caliber. Reconstituted flow is seen within the P1 segment of the popliteal artery. Popliteal artery is patent without significant stenosis. Below knee runoff demonstrates patent flow in the anterior tibial artery, and peroneal artery without significant stenosis. There is occlusion of the distal posterior tibial artery within the calf NONVASCULAR: Lung bases are clear. Solid abdominal organs are unremarkable. Bowel loops are unremarkable. No free fluid seen in the abdomen and pelvis. Urinary bladder is unremarkable. No pathologic lymphadenopathy or mass lesion seen in the abdomen and pelvis. Coarse calcification seen in the uterus likely representing old calcified fibroid. Osseous structures are intact. CT/CT angio abd aorta runoff IMPRESSION: 1. Diffuse moderate stenosis of the right common iliac artery. Mild stenosis of the right external iliac artery. Moderate to severe stenosis of the right superficial femoral artery at the level the adductor canal. Patent flow in the right anterior tibial and peroneal arteries. Occlusion of the right posterior tibial artery. 2. Chronic total occlusion of the left superficial femoral artery. Reconstituted flow seen in the popliteal artery. Patent flow in the left anterior tibial and peroneal arteries. Occlusion of the distal left posterior tibial artery.
[2023-01-20] MEDS: iohexoL 350 MG/ML 100 ML INFUS..BTL IV (09:28)
== END 2023-01-20 08:45 | disposition home or self-care (01) ==
LOC: HO.CT 08:44
PROVIDERS: PCP Internal Medicine; Visit Provider Surgery Vascular Surgery
DX: I83.11 Varicose veins of right lower extremity with inflammation (principal)
CPT/HCPCS: 75635; Q9967

== ENCOUNTER 2023-01-26 13:52 | Outpatient (AMB) | payer BC, SELFPAY ==
--- NOTE | 2023-01-26 13:56 | A.OFFVIS_ITS ---
Intake Intake Visit Reasons: CTA w/ runoff fu Intake Note: Pt here for follow up CTA runoff on 01/20/23 She says shes doing about the same and there hasn't been any changes since her last visit Allergies No Known Allergies Allergy (Verified 01/14/23 11:35) HPI CTA w/ runoff fu HPI Details Very pleasant 57-year-old female presents for follow-up regarding claudication. It has continued to progress and she notes significant pain and discomfort right more so than left. She had an original intervention in [facility] of 2021. At that time she did note some improvement but it has gotten back to where it originally was. She now presents for follow-up with CT angiogram. [facility] Medical History Difficulty swallowing Vitamin D deficiency Impaired fasting glucose Mixed dyslipidemia Varicose veins of right lower extremity with inflammation Claudication Tobacco abuse Obesity due to excess calories Surgical History Hx of colonoscopy Peripheral arterial occlusive disease Social History Housing: House Patient Tobacco Use Status: Current everyday Tobacco user Cigarettes Per Day: 10 e-Cigarette/Vaping Use: Never Used Second Hand Smoke Exposure: Yes service: No Current occupational status: employed Current occupational exposures/hazards: No Cognitive needs: No Hearing needs: No Vision needs: No Review of Systems Const All systems reviewed & are unremarkable except as noted in HPI and below Reports no additional complaints ENT Reports Normal hearing present Card Denies chest pain, Denies chest pain at rest, Denies chest pain with activity and Denies pedal edema Resp Denies cough GI Denies abdominal pain Musc Denies abnormal gait, Denies muscle cramps and Denies radiating pain into limb Skin/Breast Denies skin ulcer and Denies wounds Neuro Reports Normal hearing present and Denies abnormal gait Psych Reports no additional complaints Physical Exam Const General: cooperative, healthy appearing and comfortable Orientation/consciousness: oriented to person, oriented to place and oriented to time HEENT Head: Yes normal to inspection Neck Neck: Yes normal visual inspection Carotids: no bruits Chest Chest palpation & inspection: normal inspection of the chest Resp Effort & Inspection: normal respiratory effort and able to speak in complete sentences Auscultation: clear to auscultation bilaterally, no crackles, no rales, no rhonchi and no wheezes Cardio Other: Bilateral DP signals Rate: regular rate Rhythm: regular rhythm Heart sounds: S1 normal heart sound present and S2 normal heart sound present Bruits: no carotid bruits Peripheral pulses: Peripheral pulses 2+ throughout GI Inspection: Yes normal to inspection Skin Wounds: no wounds Hair: normal Neuro General: oriented to person, oriented to place and oriented to time Cranial nerves: Yes CN's II-XII intact bilaterally and Yes Normal hearing pres ent Cognition (Neuro): normal cognition Motor exam (neuro): 5/5 motor strength present throughout Extrem Other: venous exam: No significant superficial varicosities or spider telangiectasias, minimal edema General: No clubbing, No cyanosis and No edema Psych Appearance: grossly normal Mental Status: mental status grossly normal Speech and movement: Normal speech and movement present Results Reviewed Results Reviewed: CT angiogram demonstrates stenosis of right common iliac and right external iliac severe stenosis of right SFA. Left side has a chronic total occlusion of left SFA written report and images were reviewed. Assessment & Plan Assessment & Plan (1) Peripheral arterial occlusive disease: Comment: 03/11/2022 right external iliac plasty Code(s): I77.9 - Disorder of arteries and arterioles, unspecified Plan: Patient notes leg pain when walking distances. I have discussed the pathophysiology of peripheral vascular disease with the patient. I have also discussed risk factor modification. I have reviewed the patient's arterial testing which reveals right leg inflow disease on CT angiogram. the patient would benefit from a right leg endovascular peripheral angiogram with possible angioplasty, stent, and/or atherectomy. This has been discussed in detail with the patient along with risks, benefits, and complications. This includes but is not limited to bleeding, infection, heart attack, need for emergent surgical repair, limb ischemia, blood vessel damage, bleeding, puncture, kidney injury, bruising, allergic reaction, and skin reaction. The patient demonstrates a clear understanding. We will schedule for the next appropriate time. Thank you for allowing us to assist in this patient's care. Coding Level of Care Code Est Pt Level 4 (23332) Diagnoses Peripheral arterial occlusive disease I77.9
== END 2023-01-26 14:42 | disposition home or self-care (01) ==
PROVIDERS: PCP Internal Medicine; Visit Provider Surgery Vascular Surgery
DX: I77.9 Disorder of arteries and arterioles, unspecified (principal); Z98.62 Peripheral vascular angioplasty status
CPT/HCPCS: 99213

== ENCOUNTER → 2023-01-26 13:52 | Outpatient (BNVA) | payer BC, SELFPAY | PROVIDERS: PCP Internal Medicine; Visit Provider Surgery Vascular Surgery ==

== ENCOUNTER 2023-02-03 08:08 | Day surgery (SDC) | payer BC, SELFPAY ==
[2023-02-03] VITALS (11 sets, daily range): BP systolic 111–156; BP diastolic 53–81; PULSE 74–82; RESP 16–18; TEMP 36.2–36.6; O2SAT 94–96; BMI 32.3
[2023-02-03 08:31] LABS: MANUAL DIFF FLAG NO
[2023-02-03 08:41] LABS: Basophils Absolute Auto 0.1 X10*3/uL (0.0-0.2); Basophils Percent Auto 0.7 % (0-2); Eosinophils Absolute Auto 0.3 X10*3/uL (0.0-0.4); Eosinophils Percent Auto 3.1 % (0-4); Hematocrit 47.7 % (37.0-47.0); Hemoglobin 15.8 g/dl (12.0-16.0); Imm Gran Abs Auto 0.05 X10*3/uL (0.00-0.03); Imm Gran Pct Auto 0.5 % (0.0-0.4); Lymphocytes Absolute Auto 3.7 X10*3/uL (1.2-4.9); Lymphocytes Percent Auto 33.3 % (20-40); Mean Corpuscular HGB Conc 33.1 g/dl (31.0-35.0); Mean Corpuscular Volume 93.7 fL (80.0-98.0); Mean Platelet Volume 9.8 fL (9.4-12.3); Monocytes Absolute Auto 0.9 X10*3/uL (0.1-1.2); Monocytes Percent Auto 8.5 % (2-11); Neutrophils Absolute Auto 5.9 x10*3/uL (2.0-8.3); Neutrophils Percent Auto 53.9 % (45-73); Platelet Count 242 X10*3/uL (160-400); Red Blood Count 5.09 X10*6/uL (4.20-5.50); Red Cell Distribution Width 14.6 % (11.0-16.0)
[2023-02-03 08:51] LABS: Blood Urea Nitrogen 12 mg/dL (9-16); Estimated Glomerular Filt Rate > 60
[2023-02-03] MEDS: 0.9 % Sodium Chloride 1,000 ML 100 ML IVCONT (09:23)
--- NOTE | 2023-02-03 12:05 | W.PM.OPN ---
Operative Note Operative Note Date of Service: 02/03/23 Narrative: Angiogram report from [facility] Preoperative diagnosis: Atherosclerosis of Right lower extremity with activity limiting claudication Postoperative diagnosis: Same Procedure: 1. Ultrasound-guided left common femoral access 2. Aortogram with right lower extremity runoff 3. right SFA atherectomy and plasty Surgeon:Doron Nagy M.D., FACS, RPVI Pantograph Ii Engraver:None Anesthesia: Local with moderate conscious sedation. Total intraservice moderate sedation time was 68 minutes. I monitored the patient's level of consciousness and physiologic status continuously throughout the procedure. Specimens:none Drains:none Estimated blood loss: Less than 10 ml Implant: Medtronic Impact DCB 5 x 80 Indications: 57-year-old female with prior history of claudication on noninvasive testing was concerning for inflow and SFA disease. She now presents for endovascular intervention. The patient has signed the informed consent after reviewing risks, complications, benefits, and alternatives previously discussed with the patient. The patient was given the opportunity to ask any additional questions or voice any concerns. All questions were answered to the patient's satisfaction. Procedure in detail: Patient was brought to the angiography suite prior to which a time-out was called for patient identification and site verification. Bilateral groins were prepped and draped in the standard surgical fashion. Under ultrasound guidance Left common femoral was punctured with micro puncture needle and wire. Subsequently a precision 4 [place] sheath was then placed. Bentson wire was advanced to the level of the aorta. 4 [place] Flush catheter was brought up and parked at the level of the renal arteries. Aortogram was then undertaken. Catheter was brought down to the level of the iliac bifurcation. Iliacs were subsequently imaged. Catheter was then brought in up and over to the right side SFA. Runoff study was then undertaken. right SFA it was discovered near [place] canal there was high-grade stenosis. Mar Lin Blazer catheter. We exchanged out beyond the stenosis area for a 5 [place] spider wire. We then at [place] canal on the [place] 1 atherectomy. Multiple unidirectional passes were then undertaken. Once this was all accomplished completion angiogram demonstrated residual stenosis. We then placed a 5 x 80 drug coated balloon. This was brought into position in under 3 minutes and insufflated for a total of 3 minutes in duration. Once this was all accomplished catheter wire sheath was brought to the ipsilateral side. StarClose closure with device was then deployed. Patient tolerated the procedure well. Returned to recovery with stable vitals. Interpretation of films: 1. Ultrasound demonstrates appropriate femoral puncture. Image of which was saved. 2. Aortogram demonstrates appropriate caliber aorta. Minimal disease. Appropriate take-off of the renals. 3. Iliac images demonstrate No significant disease vessels were extremely small in caliber 4. right Leg Common femoral artery: no significant disease Profundus Femoris: No significant disease Superficial femoral artery: good flow to [place] canal where there was multiple stenose Popliteal artery (p1,p2,p3): no significant disease Anterior tibial artery: no significant disease Peroneal artery: no significant disease Posterior tibial artery: no significant disease Dorsalis pedis/plantar arch: incomplete Conclusion: 1. successful right leg atherectomy and plasty 2. Anticoagulation status: will require 6 months of aspirin and Plavix This note is constructed using voice recognition software. While every effort has been made to ensure accuracy, civil geotechnical engineer errors may have been included. Thank you for allowing me to participate in the care of your patient. Yours sincerely, Doron Nagy MD, FACS, R.P.V.I.
[2023-02-03] MEDS: Acetaminophen 325 MG TABLET 650 MG PO (13:05)
[2023-02-03] MEDS: Clopidogrel Bisulfate 300 MG TABLET PO (13:22)
== END 2023-02-03 14:12 | disposition home or self-care (01) ==
PROVIDERS: PCP Internal Medicine; Visit Provider Surgery Vascular Surgery
DX: I70.211 Atherosclerosis of native arteries of extremities with intermittent claudication, right leg (principal); M79.661 Pain in right lower leg; I83.11 Varicose veins of right lower extremity with inflammation; E55.9 Vitamin D deficiency, unspecified; R73.01 Impaired fasting glucose; E78.2 Mixed hyperlipidemia; E66.09 Other obesity due to excess calories; F17.210 Nicotine dependence, cigarettes, uncomplicated
CPT/HCPCS: 36415; 37225; 76937; 82565; 84520; 85025; 99152; 99153; C1714; C1725; C1760; C1769; C1884; C1887; J1643; J2250; J3010; Q9967

== ENCOUNTER → 2023-02-03 08:08 | Outpatient (BNV) | payer BC, SELFPAY | PROVIDERS: PCP Internal Medicine; Visit Provider Surgery Vascular Surgery | DX: I70.211 Atherosclerosis of native arteries of extremities with intermittent claudication, right leg (principal) | CPT/HCPCS: 37225; 75625; 75710; 76937; 99152 ==

== ENCOUNTER 2023-02-18 13:46 | Outpatient (AMB) | payer BC, SELFPAY ==
[2023-02-18 13:51] VITALS: BMI 32.3
--- NOTE | 2023-02-18 13:51 | MHC.OFFVIS ---
Intake Vital Signs 02/18/23 13:51 Height 5 ft 6 in Weight 200 lb BMI 32.3 Intake Visit Reasons: 2 week follow up right leg angiogram Intake Note: 2 week follow up Right LE Angio 02/03/23. Pt states her leg is feeling much better, the 1st week after was painful but now she states she is doing much better. Accompanied by: Self / Same As Patient Allergies No Known Allergies Allergy (Verified 02/18/23 13:55) HPI 2 week follow up right leg angiogram HPI Details Very pleasant 57-year-old female presents for follow-up status post endovascular intervention. She has undergone right SFA atherectomy with plasty. She reports a significant improvement of the right lower extremity. She is ambulating longer distances. She reports that she can walk around the grocery store without stopping. She now presents for postprocedure follow-up. [facility] Medical History (Updated 02/18/23 @ 13:56 by ELVER Horn) S/P angiogram of extremity (02/03/23) Neck pain with history of cervical spinal surgery A-fib Difficulty swallowing Vitamin D deficiency Impaired fasting glucose Mixed dyslipidemia Varicose veins of right lower extremity with inflammation Claudication Tobacco abuse Obesity due to excess calories Surgical History (Updated 02/18/23 @ 14:12 by Doron Nagy MD) S/P ablation of atrial fibrillation Hx of colonoscopy Peripheral arterial occlusive disease Social History Housing: House Patient Tobacco Use Status: Current everyday Tobacco user Cigarette Packs Per Day: 0.5 Cigarettes Per Day: 10.0 e-Cigarette/Vaping Use: Never Used Second Hand Smoke Exposure: Yes service: No Current occupational status: employed Current occupational exposures/hazards: No Cognitive needs: No Hearing needs: No Vision needs: No Review of Systems Const All systems reviewed & are unremarkable except as noted in HPI and below Reports no additional complaints ENT Reports Normal hearing present Card Denies chest pain, Denies chest pain at rest, Denies chest pain with activity and Denies pedal edema Resp Denies cough GI Denies abdominal pain Musc Denies abnormal gait, Denies muscle cramps and Denies radiating pain into limb Skin/Breast Denies skin ulcer and Denies wounds Neuro Reports Normal hearing present and Denies abnormal gait Psych Reports no additional complaints Physical Exam Vital Signs: BMI result Body Mass Index 32.3 Const General: cooperative, healthy appearing and comfortable Orientation/consciousness: oriented to person, oriented to place and oriented to time HEENT Head: Yes normal to inspection Neck Neck: Yes normal visual inspection Carotids: no bruits Chest Chest palpation & inspection: normal inspection of the chest Resp Effort & Inspection: normal respiratory effort and able to speak in complete sentences Auscultation: clear to auscultation bilaterally, no crackles, no rales, no rhonchi and no wheezes Cardio Other: PALPABLE RIGHT LOWER EXTREMITY DORSALIS PEDIS PULSE Rate: regular rate Rhythm: regular rhythm Heart sounds: S1 normal heart sound present and S2 normal heart sound present Bruits: no carotid bruits Peripheral pulses: Peripheral pulses 2+ throughout GI Inspection: Yes normal to inspection Skin Wounds: no wounds Hair: normal Neuro General: oriented to person, oriented to place and oriented to time Cranial nerves: Yes CN's II-XII intact bilaterally and Yes Normal hearing present Cognition (Neuro): normal cognition Motor exam (neuro): 5/5 motor strength present throughout Extrem Other: venous exam: No significant superficial varicosities or spider telangiectasias, minimal edema General: No clubbing, No cyanosis and No edema Psych Appearance: grossly normal Mental Status: mental status grossly normal Speech and movement: Normal speech and movement present Assessment & Plan Assessment & Plan (1) Peripheral arterial occlusive disease: Comment: 03/11/2022 right external iliac plasty 02/03/2023 right SFA atherectomy and plasty Code(s): I77.9 - Disorder of arteries and arterioles, unspecified Plan: In short patient has stable claudication. She will require aspirin and Plavix. I did review the pathophysiology of peripheral vascular disease with the patient. In addition we did discuss routine conservative measures including a healthy diet and the importance of exercise and ambulation. We did discuss risk factor modification. The patient will continue to to follow-up with surveillance follow-up in approximately 3 months. Thank you for allowing us to participate in this patient's care. If there are any questions or concerns please do not hesitate to contact us. Orders: Orders US arterial duplex LE BI 3 Months I77.9 - Disorder of arteries and arterioles, unspecified Coding Level of Care Code Est Pt Level 3 (11502) Diagnoses Peripheral arterial occlusive disease I77.9
== END 2023-02-18 14:10 | disposition home or self-care (01) ==
PROVIDERS: PCP Internal Medicine; Visit Provider Surgery Vascular Surgery
DX: I77.9 Disorder of arteries and arterioles, unspecified (principal)
CPT/HCPCS: 99213

== ENCOUNTER → 2023-02-18 13:46 | Outpatient (BNVA) | payer BC, SELFPAY | PROVIDERS: PCP Internal Medicine; Visit Provider Surgery Vascular Surgery ==

== ENCOUNTER 2023-04-06 09:44 | Outpatient (REF) | payer OTHER, SELFPAY ==
--- NOTE | ~2023-04-06 | FL_ITS ---
EXAMINATION: BARIUM SWALLOW CLINICAL INFORMATION: Dysphagia, globus sensation COMPARISON: None TECHNIQUE: Fluoroscopic air contrast upper GI examination was performed utilizing standard techniques with thin and thick barium and effervescent granules. Numerous spot images were obtained. FINDINGS: Patient is status post anterior cervical fusion of C4-C7 Lateral cine images of the oropharynx and hypopharynx demonstrate normal swallow mechanism with normal epiglottic inversion and soft palate elevation. No tracheal penetration, glottic or subglottic aspiration identified. No nasopharyngeal reflux present. Hypopharyngeal structures appear normal without evidence of mass or diverticulum. There is mild cricopharyngeal achalasia present. Dual and single contrast images of the esophagus demonstrate normal caliber, contour, and mucosal pattern. No evidence of stricture, mass, or ulcerations identified. Primary esophageal peristalsis was normal. Mild propulsive tertiary contractions are seen in the mid and distal esophagus. No evidence of hiatus hernia identified. No significant gastroesophageal reflux was seen during the course of the examination and on reflux views. FLUOROSCOPY TIME: 3 minutes Number of Spot Images: 8 Number of Cine: 8 DOSE AREA PRODUCT: 2100 uGy-m2 (microgray-meter squared) FL/FL barium swallow with air IMPRESSION: 1. Mild cricopharyngeal achalasia 2. Mild esophageal dysmotility 3. Status post anterior cervical fusion of C4-C7 This procedure was performed by Arnulfo Fletcher PA-C, and supervised by Dr. Trammell
== END 2023-04-06 09:45 | disposition home or self-care (01) ==
LOC: HO.XRAY 09:44
PROVIDERS: PCP Internal Medicine; Visit Provider Internal Medicine
DX: R13.10 Dysphagia, unspecified (principal)
CPT/HCPCS: 74221

== ENCOUNTER → 2023-04-06 09:46 | Outpatient (BNV) | payer OTHER, SELFPAY | PROVIDERS: PCP Internal Medicine; Visit Provider Radiology Diagnostic Radiology | DX: R13.10 Dysphagia, unspecified (principal) | CPT/HCPCS: 74221 ==

== ENCOUNTER 2023-04-28 08:22 | Outpatient (AMB) | payer OTHER, SELFPAY ==
--- NOTE | 2023-04-28 08:30 | MHC.OFFVIS ---
Intake Vital Signs 04/28/23 08:32 Height 5 ft 6 in Weight 203 lb 0.478 oz BMI 32.8 BP 112/66 Blood Pressure Location Lt brachial Position Sitting Pulse 68 Intake Visit Reasons: Dyskinesia of esophagus Intake Note: Britt presents in the office as a new patient for dyskinesia of esophagus. CC: she states that she is having issues swallowing. She feels like there is something stuck in her throat. In December she choked on hot chocolate. It will go down but it takes a while. She has issues with taking her medications at times. Turret Lathe Set Up Operator Required: No Allergies No Known Allergies Allergy (Verified 04/28/23 08:32) HPI Dyskinesia of esophagus HPI Details 57-year-old female with past medical history of ventricular bigeminy, claudication, tobacco use, PAD with occlusion on anticoagulation therapy is here today for initial consultation. Patient was sent by her PCP. Patient has been complaining of difficulty swallowing solids and liquids. Patient was sent to go for barium swallow. Test was done 04/08/2023: 1. Mild cricopharyngeal achalasia 2. Mild esophageal dysmotility 3. Status post anterior cervical fusion of C4-C7 Patient is not taking any PPIs at this moment. Patient reports that 3 to 4 times a week she will have symptoms of trouble swallowing her medications, sometimes solid food. Patient reports that symptoms have been going on for awhile, believes since November or so. Patient reports choking episode with hot chocolate in November to the point where she was unable to breathe. Patient reports that she never had upper endoscopy in the past. Last colonoscopy in October of 2017 and was normal. Patient has peripheral artery disease and currently is on treatment started in February and will be done possibly in early August. Patient reports that while she had procedure few months ago they noticed that she had bigeminy he is, history of AFib about 10 years ago or so. Cardiology referral was done no appointment set yet. Patient will need a risk stratification before going for procedure. Patient denies having acid reflux and dyspepsia. Reports that she is moving her bowels well without any issues. Denies any other GI concerning symptoms. Patient is an everyday smoker half a pack a day [facility] Medical History (Updated 04/23/23 @ 03:27 by Maureen Solano MD) Ventricular bigeminy Esophageal dysmotility Achalasia of the cricopharyngeus muscle S/P angiogram of extremity (02/03/23) Neck pain with history of cervical spinal surgery A-fib Difficulty swallowing Vitamin D deficiency Impaired fasting glucose Mixed dyslipidemia Varicose veins of right lower extremity with inflammation Claudication Tobacco abuse Obesity due to excess calories Surgical History (Updated 02/18/23 @ 14:12 by Doron Nagy MD) S/P ablation of atrial fibrillation Hx of colonoscopy Peripheral arterial occlusive disease Social History Housing: House Patient Tobacco Use Status: Current everyday Tobacco user Cigarette Packs Per Day: 0.5 Cigarettes Per Day: 10.0 e-Cigarette/Vaping Use: Never Used Second Hand Smoke Exposure: Yes service: No Current occupational status: employed Current occupational exposures/hazards: No Cognitive needs: No Hearing needs: No Vision needs: No Review of Systems Const Denies weight gain and Denies weight loss ENT Reports no additional complaints, Reports dysphagia and Denies odynophagia Card Reports no additional complaints Resp Reports no additional complaints GI Denies abdominal pain, Denies belching, Denies melena, Denies bloating, Denies change in bowel habits, Reports dysphagia, Denies excessive flatus, Denies dyspepsia, Reports heartburn (Occasional), Denies diarrhea, Denies loose stools, Denies nausea, Denies odynophagia and Denies vomiting Reports no additional complaints Musc Reports no additional complaints Neuro Reports no additional complaints Psych Reports no additional complaints Endo Reports no additional complaints Physical Exam Vital Signs: Last Vital Signs Pulse 68 04/28/23 08:32 BP 112/66 04/28/23 08:32 BMI result Body Mass Index 32.8 Const General: healthy appearing, no acute distress and well developed Nutritional Appearance: well nourished Orientation/consciousness: patient oriented x3 Resp Effort & Inspection: normal respiratory effort, able to speak in complete sentences, no tracheal deviation and symmetric chest movement Auscultation: clear to auscultation bilaterally Cardio Rate: regular rate GI Inspection: Yes normal to inspection and No distended Palpation (GI): Soft to palpation, not firm, nontender and No hepatosplenomegaly present Auscultation: normal bowel sounds General: Yes no CVA tenderness Back/Spine/Pelvis Back: no CVA tenderness Skin General skin exam: elasticity normal, turgor normal and dry skin Neuro General: patient oriented x3 Psych Appearance: grossly normal Mental Status: mental status grossly normal Results Reviewed Results Reviewed: BARIUM SWALLOW 04/06/2023 FINDINGS: Patient is status post anterior cervical fusion of C4-C7 Lateral cine images of the oropharynx and hypopharynx demonstrate normal swallow mechanism with normal epiglottic inversion and soft palate elevation. No tracheal penetration, glottic or subglottic aspiration identified. No nasopharyngeal reflux present. Hypopharyngeal structures appear normal without evidence of mass or diverticulum. There is mild cricopharyngeal achalasia present. Dual and single contrast images of the esophagus demonstrate normal caliber, contour, and mucosal pattern. No evidence of stricture, mass, or ulcerations identified. Primary esophageal peristalsis was normal. Mild propulsive tertiary contractions are seen in the mid and distal esophagus. No evidence of hiatus hernia identified. No significant gastroesophageal reflux was seen during the course of the examination and on reflux views. FLUOROSCOPY TIME: 3 minutes Number of Spot Images: 8 Number of Cine: 8 DOSE AREA PRODUCT: 2100 uGy-m2 (microgray-meter squared) FL/FL barium swallow with air IMPRESSION: 1. Mild cricopharyngeal achalasia 2. Mild esophageal dysmotility 3. Status post anterior cervical fusion of C4-C7 Assessment & Plan Assessment & Plan (1) Achalasia of the cricopharyngeus muscle: Code(s): K22.0 - Achalasia of cardia (2) Esophageal dysmotility: Code(s): K22.4 - Dyskinesia of esophagus Plan As mentioned above in HPI patient was found to have achalasia of the cricopharyngeus muscle and esophageal dysmotility. Patient will be sent for upper endoscopy, however due to her currently being treated with Plavix until August, treatment should not be interrupted. Discussed with patient the importance of chewing well and swallowing small bites. Avoid drinking fast. Will send her for modified barium swallow with speech therapy. Aspiration precautions discussed with patient. I will start her on pantoprazole tablets every morning. Esophageal dysmotility could be due to underlying reflux so you will try PPI therapy. As mentioned above in HPI patient reported that she had bigeminy when they were doing the procedure noted on EKG tracing. Was sent to Cardiology for evaluation. Will have her get clearance before going for the procedure. Patient has an appointment with Dr. Nagy next week, she will ask him if it would be okay just in case she needed to go in earlier for the procedure to interrupt her therapy. Patient will follow-up after the procedure, sooner on as needed basis. Patient is agreeable to current plan and verbalizes understanding of instructions. She was given the opportunity to ask questions and all questions answered. Thank you for allowing me to participate in her care Orders: Orders FL barium swallow modified Today R13.10 - Dysphagia, unspecified Medications: New pantoprazole take one tablet half an hour before breakfast 40 mg PO DAILY 30 tabs 2RF K21.9 - Gastro-esophageal reflux disease without esophagitis Coding Level of Care Code New Pt Level 4 (16389) Diagnoses Achalasia of the cricopharyngeus muscle K22.0 Esophageal dysmotility K22.4 Time Spent (min) 45 Comment 30 minutes spent with patient and additional 15 minutes spent reviewing her records
[2023-04-28 08:32] VITALS: BP 112/66; PULSE 68; BMI 32.8
== END 2023-04-28 09:41 | disposition home or self-care (01) ==
PROVIDERS: PCP Internal Medicine; Referring Provider Internal Medicine; Visit Provider Nurse Practitioner Family
DX: K22.0 Achalasia of cardia (principal)
CPT/HCPCS: 99204

== ENCOUNTER → 2023-04-28 08:22 | Outpatient (BNVA) | payer OTHER, SELFPAY | PROVIDERS: PCP Internal Medicine; Visit Provider Nurse Practitioner Family ==

== ENCOUNTER 2023-05-10 08:05 | Outpatient (REF) | payer OTHER, SELFPAY ==
--- NOTE | ~2023-05-10 | US_ITS ---
EXAMINATION: NONINVASIVE ASSESSMENT OF THE ARTERIES OF BOTH LOWER EXTREMITIES INCLUDING PVR EXAM AND BILATERAL LOWER EXTREMITY DUPLEX CLINICAL INFORMATION: PVD COMPARISON: Angiogram 02/03/2023, noninvasive vascular imaging 06/09/2022, 11/30/2022, CTA runoff 01/20/2023 TECHNIQUE: Ankle pulse volume recordings, ankle pressure measurements and ankle brachial indices were obtained of the lower extremity arterial system bilaterally in addition to duplex Doppler techniques with wave form analysis and measurement of velocities in the common femoral, profunda femoral, superficial femoral, popliteal, tibial and peroneal arteries. The study was performed only at rest. FINDINGS: RIGHT LEG 1. Right Ankle-Brachial Index: 0.72 (higher of the DP/PT) >0.97-1.25 = normal - no significant arterial disease 0.75-0.96 = mild peripheral arterial disease 0.5-0.74 = moderate peripheral arterial disease <0.50 = severe peripheral arterial disease <0.30 = critical arterial disease 2. Segmental Pressures (mmHg): Brachial: 156 Ankle: PT 112, DP 96 3. PVR Waveforms: Ankle: Biphasic 4. Direct Duplex: Common femoral artery: 157 cm/s, triphasic Profunda femoris artery: 115 cm/s, monophasic Superficial femoral artery (proximal): 143 cm/s, Multiphasic Superficial femoral artery (mid): 159 cm/s, biphasic Superficial femoral artery (distal): 78 cm/s, triphasic Popliteal artery: 60 cm/s, biphasic Posterior tibial artery: 11.3 cm/s, diastolic flow reversal noted distally LEFT LE. Left Ankle-Brachial Index: 0.58 (higher of the DP/PT) >0.97-1.25 = normal - no significant arterial disease 0.75-0.96 = mild peripheral arterial disease 0.5-0.74 = moderate peripheral arterial disease <0.50 = severe peripheral arterial disease <0.30 = critical arterial disease 2. Segmental Pressures: Brachial: 110 Ankle: PT 90, DP 82 3. PVR Waveforms: Ankle: Biphasic 4. Direct Duplex: Common femoral artery: 223 cm/s, monophasic Profunda femoris artery: 123 cm/s, monophasic Superficial femoral artery (proximal): 88.4 cm/s, monophasic Superficial femoral artery (mid): Occluded Superficial femoral artery (distal): 17.4 cm/s, monophasic Popliteal artery: 29.5 cm/s, Multiphasic Posterior tibial artery: 21 cm/s, monophasic Left brachial blood pressure is noted to be 110 mmHg while the right brachial pressure is 156 mmHg. US/US arterial duplex LE BI IMPRESSION: 1. Right CASTILLO: 0.72, previously 0.92 2. Mild right ENTRY SPECIALISTS stenosis 3. Moderate right mid SFA stenosis 4. Diminished flow in the right posterior tibial artery, with reversal of diastolic flow distally 1. Left CASTILLO: 0.58, previously 0.71 2. Mild stenosis of the left EN[employer]ISTS 3. Occluded left SFA, new from prior exam 4. Asymmetric brachial blood pressures, suggesting left subclavian artery stenosis
--- NOTE | ~2023-05-10 | US_ITS ---
EXAMINATION: NONINVASIVE ASSESSMENT OF THE ARTERIES OF BOTH LOWER EXTREMITIES INCLUDING PVR EXAM AND BILATERAL LOWER EXTREMITY DUPLEX CLINICAL INFORMATION: PVD COMPARISON: Angiogram 02/03/2023, noninvasive vascular imaging 06/09/2022, 11/30/2022, CTA runoff 01/20/2023 TECHNIQUE: Ankle pulse volume recordings, ankle pressure measurements and ankle brachial indices were obtained of the lower extremity arterial system bilaterally in addition to duplex Doppler techniques with wave form analysis and measurement of velocities in the common femoral, profunda femoral, superficial femoral, popliteal, tibial and peroneal arteries. The study was performed only at rest. FINDINGS: RIGHT LEG 1. Right Ankle-Brachial Index: 0.72 (higher of the DP/PT) >0.97-1.25 = normal - no significant arterial disease 0.75-0.96 = mild peripheral arterial disease 0.5-0.74 = moderate peripheral arterial disease <0.50 = severe peripheral arterial disease <0.30 = critical arterial disease 2. Segmental Pressures (mmHg): Brachial: 156 Ankle: PT 112, DP 96 3. PVR Waveforms: Ankle: Biphasic 4. Direct Duplex: Common femoral artery: 157 cm/s, triphasic Profunda femoris artery: 115 cm/s, monophasic Superficial femoral artery (proximal): 143 cm/s, Multiphasic Superficial femoral artery (mid): 159 cm/s, biphasic Superficial femoral artery (distal): 78 cm/s, triphasic Popliteal artery: 60 cm/s, biphasic Posterior tibial artery: 11.3 cm/s, diastolic flow reversal noted distally LEFT LE. Left Ankle-Brachial Index: 0.58 (higher of the DP/PT) >0.97-1.25 = normal - no significant arterial disease 0.75-0.96 = mild peripheral arterial disease 0.5-0.74 = moderate peripheral arterial disease <0.50 = severe peripheral arterial disease <0.30 = critical arterial disease 2. Segmental Pressures: Brachial: 110 Ankle: PT 90, DP 82 3. PVR Waveforms: Ankle: Biphasic 4. Direct Duplex: Common femoral artery: 223 cm/s, monophasic Profunda femoris artery: 123 cm/s, monophasic Superficial femoral artery (proximal): 88.4 cm/s, monophasic Superficial femoral artery (mid): Occluded Superficial femoral artery (distal): 17.4 cm/s, monophasic Popliteal artery: 29.5 cm/s, Multiphasic Posterior tibial artery: 21 cm/s, monophasic Left brachial blood pressure is noted to be 110 mmHg while the right brachial pressure is 156 mmHg. US/US CASTILLO complete IMPRESSION: 1. Right CASTILLO: 0.72, previously 0.92 2. Mild right OSTEOLOGY TEACHER stenosis 3. Moderate right mid SFA stenosis 4. Diminished flow in the right posterior tibial artery, with reversal of diastolic flow distally 1. Left CASTILLO: 0.58, previously 0.71 2. Mild stenosis of the left OSTEOLOGY TEACHER 3. Occluded left SFA, new from prior exam 4. Asymmetric brachial blood pressures, suggesting left subclavian artery stenosis
== END 2023-05-10 08:06 | disposition home or self-care (01) ==
LOC: HO.US 08:05
PROVIDERS: PCP Internal Medicine; Visit Provider Surgery Vascular Surgery
DX: I77.9 Disorder of arteries and arterioles, unspecified (principal); I73.9 Peripheral vascular disease, unspecified
CPT/HCPCS: 93923; 93925

== ENCOUNTER 2023-05-25 14:44 | Outpatient (AMB) | payer OTHER, SELFPAY ==
--- NOTE | 2023-05-25 14:57 | MHC.OFFVIS ---
Intake Vital Signs 05/25/23 14:58 Height 5 ft 6 in Weight 203 lb BMI 32.8 Intake Visit Reasons: 6 mo follow up arterial US Intake Note: Patient presents for 6 mo follow up arterial US 05/10/22 w/ Hx of Right Angio 02/03/23. States she feels fine , just gets occasional swelling in feet and legs . Notices bluish tint in feet from time to time. Accompanied by: Self / Same As Patient Allergies No Known Allergies Allergy (Verified 05/25/23 15:06) HPI 6 mo follow up arterial US HPI Details Very pleasant 57-year-old female presents for follow-up status post endovascular intervention. She had undergone right SFA atherectomy with plasty. She reports that she is walking better distances. She now presents for routine follow-up with noninvasive testing. She does report that she can walk about a block at the current time. [facility] Medical History Ventricular bigeminy Esophageal dysmotility Achalasia of the cricopharyngeus muscle S/P angiogram of extremity (02/03/23) Neck pain with history of cervical spinal surgery A-fib Difficulty swallowing Vitamin D deficiency Impaired fasting glucose Mixed dyslipidemia Varicose veins of right lower extremity with inflammation Claudication Tobacco abuse Obesity due to excess calories Surgical History S/P ablation of atrial fibrillation Hx of colonoscopy Peripheral arterial occlusive disease Social History Housing: House Patient Tobacco Use Status: Current everyday Tobacco user Cigarette Packs Per Day: 0.5 Cigarettes Per Day: 10.0 e-Cigarette/Vaping Use: Never Used Second Hand Smoke Exposure: Yes service: No Current occupational status: employed Current occupational exposures/hazards: No Cognitive needs: No Hearing needs: No Vision needs: No Review of Systems Const All systems reviewed & are unremarkable except as noted in HPI and below Reports no additional complaints ENT Reports Normal hearing present Card Denies chest pain, Denies chest pain at rest, Denies chest pain with activity and Denies pedal edema Resp Denies cough GI Denies abdominal pain Musc Denies abnormal gait, Denies muscle cramps and Denies radiating pain into limb Skin/Breast Denies skin ulcer and Denies wounds Neuro Reports Normal hearing present and Denies abnormal gait Psych Reports no additional complaints Physical Exam Vital Signs: BMI result Body Mass Index 32.8 Const General: cooperative, healthy appearing and comfortable Orientation/consciousness: oriented to person, oriented to place and oriented to time HEENT Head: Yes normal to inspection Neck Neck: Yes normal visual inspection Carotids: no bruits Chest Chest palpation & inspection: normal inspection of the chest Resp Effort & Inspection: normal respiratory effort and able to speak in complete sentences Auscultation: clear to auscultation bilaterally, no crackles, no rales, no rhonchi and no wheezes Cardio Other: Bilateral DP Rate: regular rate Rhythm: regular rhythm Heart sounds: S1 normal heart sound present and S2 normal heart sound present Bruits: no carotid bruits Peripheral pulses: Peripheral pulses 2+ throughout GI Inspection: Yes normal to inspection Skin Wounds: no wounds Hair: normal Neuro General: oriented to person, oriented to place and oriented to time Cranial nerves: Yes CN's II-XII intact bilaterally and Yes Normal hearing present Cognition (Neuro): normal cognition Motor exam (neuro): 5/5 motor strength present throughout Extrem Other: venous exam: No significant superficial varicosities or spider telangiectasias, minimal edema General: No clubbing, No cyanosis and No edema Psych Appearance: grossly normal Mental Status: mental status grossly normal Speech and movement: Normal speech and movement present Results Reviewed Results Reviewed: Noninvasive testing dated 05/10/2023 demonstrates CASTILLO on the right of 0.72 and on the left of 0.58. This does appear slightly diminished from prior studies. Assessment & Plan Assessment & Plan (1) Peripheral arterial occlusive disease: Comment: 03/11/2022 right external iliac plasty 02/03/2023 right SFA atherectomy and plasty Code(s): I77.9 - Disorder of arteries and arterioles, unspecified Plan: In short patient has peripheral vascular disease. It appears that she is doing clinically well and able to walk a block with no significant difficulty. Her numbers appear to be decreasing. This is of concern. We did discuss routine risk factor modification. I have scheduled her for a shorter interval follow-up in 6 months with noninvasive testing. Should there be a further decrease may require repeat endovascular intervention. I also did discuss if there was any change in her clinical status and she was unable to walk a block to contact us as well. Thank you for allowing us to assist in her care. If there are any questions or concerns please do not hesitate to contact us. Orders: Orders US arterial duplex LE BI 6 Months I77.9 - Disorder of arteries and arterioles, unspecified Coding Level of Care Code Est Pt Level 4 (28665) Diagnoses Peripheral arterial occlusive disease I77.9
[2023-05-25 14:58] VITALS: BMI 32.8
== END 2023-05-25 15:43 | disposition home or self-care (01) ==
PROVIDERS: PCP Internal Medicine; Visit Provider Surgery Vascular Surgery
DX: I77.9 Disorder of arteries and arterioles, unspecified (principal)
CPT/HCPCS: 99213

== ENCOUNTER → 2023-05-25 14:44 | Outpatient (BNVA) | payer OTHER, SELFPAY | PROVIDERS: PCP Internal Medicine; Visit Provider Surgery Vascular Surgery ==

== ENCOUNTER 2023-05-29 09:35 | Outpatient (REF) | payer OTHER, SELFPAY | END 2023-05-29 09:36 | disposition home or self-care (01) | LOC: HO.MAMMO 09:35 | PROVIDERS: PCP Internal Medicine; Visit Provider Internal Medicine | DX: Z12.31 Encounter for screening mammogram for malignant neoplasm of breast (principal) | CPT/HCPCS: 77063; 77067 ==

== ENCOUNTER → 2023-05-29 09:45 | Outpatient (BNV) | payer OTHER, SELFPAY | PROVIDERS: PCP Internal Medicine; Visit Provider Radiology Diagnostic Radiology | DX: Z12.31 Encounter for screening mammogram for malignant neoplasm of breast (principal) | CPT/HCPCS: 77063; 77067 ==

== ENCOUNTER 2023-06-07 14:11 | Outpatient (REF) | payer OTHER, SELFPAY ==
--- NOTE | ~2023-06-07 | FL_ITS ---
EXAMINATION: Modified Barium Swallow CLINICAL INFORMATION: Dysphagia COMPARISON: Correlation made with barium swallow 04/06/2023. TECHNIQUE: Modified barium swallow was performed under lateral fluoroscopy with patient in standing position. Barium mixed with solids and liquids of varying consistencies was administered by the speech pathologist. Exam was recorded in the fluoroscopy suite. FINDINGS: No laryngeal penetration or aspiration was seen during this examination FLUOROSCOPY TIME: 53 seconds Number of Spot Images: 1 lateral image hold. DOSE AREA PRODUCT: 523.6 uGy-m2 (microgray-meter squared) FL/FL barium swallow modified IMPRESSION: No laryngeal penetration or aspiration was seen during this examination Refer to the speech therapy report for further clarification This procedure was performed by Arnulfo Fletcher PA-C, and supervised by Dr. Trammell
--- NOTE | 2023-06-08 11:44 | MHC.SL.IMP ---
Date of Plan of Treatment: 06/07/23 Onset of Symptoms/Illness: 11/06/22 Date Treatment Started: 06/07/23 Admitting Diagnosis: Dysphagia Primary Speech & Language Diagnosis: R13.10 Dysphagia Reason for Today's Visit: 41636 Modified Barium Swallow Study Pre-evaluation Dietary Consistencies: Regular Pre-evaluation Liquid Consistency: Thin Pre-evaluation Medication Administration: Whole with Liquid Medical History: Modified Barium Swallow Study Fluoroscopic Evaluation of Swallowing Function CPT Code 37178 Evaluation Year: 2023 Reason for Study: Pt reporting difficulty swallowing. Referring Physician: Brandee Jacome CERTIFIED NUTRITIONIST- Evaluating Clinician: Jennifer Glasgow MA, CCC-COFFEE BREAK ATTENDANT Study Number: 1 Patient Name: Britt Jamison Status: Outpatient, Ambulatory Age: 57 Gender: Female Medical History Medical History Ventricular bigeminy Esophageal dysmotility Achalasia of the cricopharyngeus muscle S/P angiogram of extremity (02/03/23) Neck pain with history of cervical spinal surgery A-fib Difficulty swallowing Vitamin D deficiency Impaired fasting glucose Mixed dyslipidemia Varicose veins of right lower extremity with inflammation Claudication Tobacco abuse Obesity due to excess calories Surgical History S/P ablation of atrial fibrillation Hx of colonoscopy Peripheral arterial occlusive disease Current (pre-evaluation) Intake/Diet: Route: PO Diet Grade: Regular Liquid Consistencies: Thin Pre-Study Functional Oral Intake Scale (FOIS): 7- Total oral intake with no restrictions Pain: None reported at time of study SUBJECTIVE: Patient is a 57 year old female referred for a modified barium swallow study by Brandee Jacome RAILROAD SIGNAL TECHNICIAN from [facility]. Patient reports having trouble swallowing intermittently. She complains of feeling that something is stuck in her throat, which will eventually pass, but it takes a while. Patient reports having had these episodes since November about 4 times a week and that she sometimes has trouble swallowing her pills as well. She reports episode of choking on hot chocolate in December. Patient had a barium swallow study on 04/06/23 which showed mild cricopharyngeal achalasia and mild esophageal dysmotility. Patient also has neck pain with history of cervical spinal surgery. Oral Motor Exam Facial Symmetry: Symmetrical Mouth Occlusion: Normal Oral-Facial Teeth Characteristics: Intact/Normal Oral-Facial Smile (Lips) Description: Normal Oral-Facial Puff Cheeks Description: Normal Tongue Size: Normal Tongue Excursion Description: Normal Tongue Range of Movement Description: Normal Tongue Speed of Movement Description: Normal Tongue Strength of Movement (against opposing pressure): Normal Tongue Movement Characteristics: Normal/Absent Is patient able to manage secretions?: Yes Food and Liquid Trials: Oral Impairment: Lip Closure: Did not test Oral Impairment: Tongue Control During Bolus Hold: Did not test Oral Impairment: Bolus Preparation/Mastication: 0=Timely and efficient chewing and mashing Oral Impairment: Bolus Transport/Lingual Motion: 0=Brisk tongue motion Oral Impairment: Oral Residue: 2=Residue collection on oral structures Oral Impairment:Initiation of Pharyngeal Swallow: 0=Bolus head at posterior angle of ramus (first hyoid excursion) Pharyngeal Impairment: Soft Palate Elevation: 0=No bolus between soft palate (SP)/pharyngeal wall (PW) Pharyngeal Impairment: Laryngeal Elevation: 0=Complete superior movement of thyroid cartilage (see description) Pharyngeal Impairment: Anterior Hyoid Excursion: 0=Complete anterior movement Pharyngeal Impairment: Epiglottic Movement: 1=Partial inversion Pharyngeal Impairment: Laryngeal Vestibular Closure:: 0=Complete: no air/contrast in laryngeal vestibule Pharyngeal Impairment: Pharyngeal Stripping Wave: 0=Present: complete Pharyngeal Impairment: Pharyngeal Contraction: Did not test Pharyngeal Impairment: Pharyngoesophageal Segment Openin=Partial distention/partial duration: partial obstruction of flow Pharyngeal Impairment: Tongue Base (TB) Retraction: 1=Trace column of contrast/air between TB and posterior PW Pharyngeal Impairment: Pharyngeal Residue: 2=Collection of residue within or on pharyngeal structures Pharyngeal Impairment: Esophageal Clearance Upright Position: Did not test Impressions and Recommendations OBJECTIVE: Time-out: performed at 15:00 Evaluation Start: 14:30; Stop: 14:40 Patient Positioning: Standing Viewing Planes: LATERAL ONLY Contrast: MBSImP? Standardized Protocol using commercially prepared, standardized Barium viscosities, including: Varibar? THIN LIQUID (40% w/v, <15 cps) , 1/2 Shortbread Cookie (1 x1 x.25 ) MBSImP ID: [id number] MBSImP Results: Lip closure for intraoral bolus containment could not be assessed due to logistical reasons not related to physiologic impairment. Tongue control during bolus hold could not be assessed due to logistical reasons not related to physiologic impairment. Bolus preparation and mastication resulted in timely and efficient chewing and mashing. Bolus transport/lingual motion was with brisk tongue motion. Oral residue was a collection on oral structures. Initiation of the pharyngeal swallow occurred as the bolus head reached the posterior angle of the mandibular ramus. Soft palate elevation resulted in no bolus between the soft palate and the pharyngeal wall. Laryngeal elevation demonstrated complete superior movement of the thyroid cartilage with complete approximation of the arytenoids to the epiglottic petiole. Anterior hyoid excursion demonstrated complete anterior movement. Epiglottic movement resulted in partial inversion. Laryngeal vestibular closure was complete, as indicated by no air or contrast within the laryngeal vestibule at the height of the swallow. Pharyngeal stripping wave was present and complete. Pharyngeal contraction could not be determined due to logistical reasons not related to physiologic impairment. Pharyngoesophageal segment opening demonstrated partial distension/partial duration, with partial obstruction of bolus flow. Tongue base retraction allowed a trace column of contrast or air between the retracted tongue base and the posterior pharyngeal wall. Pharyngeal residue was a collection of residue within or on pharyngeal structures. Esophageal clearance in the upright position could not be assessed due to logistical reasons not related to physiologic impairment. Oral Impairment Score: 2 (absence of score, component 1component 2) Pharyngeal Impairment Score: 4 (absence of score, component 13) Esophageal Impairment Score: --- (absence of score, component 17) Laryngeal Penetration and Aspiration: Neither penetration nor aspiration was observed in today's study with Trinity Thin. Structural Abnormalities Noted: Cervical hardware contributed to pharyngeal residue ASSESSMENT: This exam was performed by the speech pathologist and the radiologist. Pt was standing for lateral view and trialed thin, pureed, and regular solid consistencies. Good oral containment, with patient maintaining cohesive bolus between tongue to palatal seal. AP transport was timely with brisk lingual movement. Mastication was likewise timely and efficient. There was mild residue coating the tongue, which patient was able to clear with 1-2 self-initiated dry swallows. Initiation of pharyngeal swallow was timely. Complete laryngeal elevation and complete laryngeal vestibular closure. Noted partial epiglottic inversion. There was no evidence of aspiration or penetration during this exam. There was mild residue in the valleculae and on the posterior pharyngeal wall at the level where patient was noted to have cervical hardware. Patient was able to clear residuals with liquid wash. Patient swallowed whole barium pill tablet with water, which passed through the oral and pharyngeal cavities with no hang up. Liquid Intake Recommendation: Thin Liquid Intake Strategies: Small Sips, No Straws Dietary Recommendations: Regular Medication Administration: Whole with Liquid Please contact the pharmacy regarding appropriate crushable or liquid drug formulations that are available whenever modified delivery is recommended. Compensatory Strategies Recommended: Sitting Upright (90 deg), Double Swallow, No Straw, Small Bites and Sips, Alternate Liquids/Solids, Rate of Ingestion Change Supervision during eating and or drinking: None Needed Recommendation for Speech Therapy: NA:Typical Evaluation Text Comment: PLAN: Intake Recommendations: Route: PO Diet Grade: Regular Liquid Consistencies: Thin Post-Study Functional Oral Intake Scale (FOIS): 7- Total oral intake with no restrictions Timely and efficient oral phase. Swallow trigger was timely. Complete laryngeal elevation with noted partial epiglottic inversion. No evidence of aspiration or penetration during this exam. Mild oral and pharyngeal residue, which completely cleared with dry swallows and liquid wash. Recommend pt continue on regular texture diet and thin liquids. To promote clearance, patient is recommended to take small bites, chew food well, alternate with sips of liquid, follow with dry swallows. Therapy Recommendations: Further speech intervention is not warranted at this time, as patient?s swallow in the oral and pharyngeal phases is deemed to be functional. Patient is recommended behavioral strategies for oral and pharyngeal clearance (alternate bites and sips, small bites, chew food well, dry swallow after each bite). These strategies were discussed with the patient after the exam. The following compensatory strategies are recommended: Bolus Volume Change Rate of Ingestion Change Liquid Wash Additional Swallow(s) per Bolus Clinician - Supplemental, Miscellaneous Communication: It is important to note MBSS objective studies are snapshots in time and Patient function might vary with factors such as time of day or concomitant medical conditions. For this reason, the final treatment plan for this patient should rest with their medical care team. Additional recommendations should be considered with the totality of the Patient in mind. Thank for the opportunity to participate in the care of this patient. If you have any questions about the content of this report, please contact the [facility] at [facility]. Education: Education regarding findings from today's study and plans for therapy were provided to Patient only through Verbal Instruction. Understanding was expressed by the Patient only. Conduit Mechanic Clinician/Clinical Fellow: No Supervisory Statement: N/A Speech Language Pathologist: Jennifer Glasgow M.A., [facility]-[employer] BREAK ATTENDANT
== END 2023-06-07 14:12 | disposition home or self-care (01) ==
LOC: HO.XRAY 14:11
PROVIDERS: Visit Provider Nurse Practitioner Family
DX: R13.10 Dysphagia, unspecified (principal)
CPT/HCPCS: 74230; 92611

== ENCOUNTER → 2023-06-07 14:30 | Outpatient (BNV) | payer OTHER, SELFPAY | PROVIDERS: Visit Provider Physician Assistant Surgical | DX: R13.10 Dysphagia, unspecified (principal) | CPT/HCPCS: 74230 ==

== ENCOUNTER 2023-07-07 14:48 | Outpatient (AMB) | payer OTHER, SELFPAY ==
--- NOTE | 2023-07-07 14:52 | A.OFFVIS_ITS ---
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 She has a lot of vascular disease in the lower extremities and goes to vascular surgery. From the cardiac standpoint, no known coronary disease myocardial infarction. Per patient, she underwent atrial fibrillation ablation around [address] Lazar -at [facility]. Around that time, she also saw cardiology [facility] but nothing since that time. She has not had any atrial fibrillation episodes in the last several years. Around the time of ablation she was on anticoagulation but not since. Otherwise, within limits of her activity no clear-cut angina or other major cardiac symptoms. She is chronic smoker. She is also known to have PVCs/bigeminy but again no clear symptoms from that. [facility] Medical History (Updated 07/07/23 @ 15:38 by Denton Cota MD) Ventricular bigeminy Esophageal dysmotility Achalasia of the cricopharyngeus muscle S/P angiogram of extremity (02/03/23) Neck pain with history of cervical spinal surgery A-fib Difficulty swallowing Vitamin D deficiency Impaired fasting glucose Mixed dyslipidemia Varicose veins of right lower extremity with inflammation Claudication Tobacco abuse Obesity due to excess calories Surgical History (Updated 07/07/23 @ 15:38 by Denton Cota MD) S/P ablation of atrial fibrillation Hx of colonoscopy Peripheral arterial occlusive disease Social History Housing: House Patient Tobacco Use Status: Current everyday Tobacco user Cigarette Packs Per Day: 0.5 Cigarettes Per Day: 10.0 e-Cigarette/Vaping Use: Never Used Second Hand Smoke Exposure: Yes service: No Current occupational status: employed Current occupational exposures/hazards: No Cognitive needs: No Hearing needs: No Vision needs: No Review of Systems Const Denies chills, Denies daytime sleepiness, Denies fatigue, Denies fever(s), Denies frequent falls, Denies night sweats, Denies snoring, Denies weakness, Denies weight gain and Denies weight loss Eyes Denies loss of vision ENT Denies dizziness and Denies hearing loss Card Denies chest pain, Denies chest pain with activity, Denies syncope, Denies rapid heart rate, Denies edema, Denies claudication, Denies leg edema, Denies lightheadedness, Denies palpitations, Denies dyspnea, Denies dyspnea on exertion and Denies orthopnea Resp Denies cough, Denies excessive phlegm production, Denies dyspnea, Denies dyspnea on exertion, Denies snoring and Denies wheezing GI Denies abdominal pain, Denies hematochezia, Denies change in bowel habits, Denies change in stool character, Denies heartburn, Denies nausea and Denies vomiting Denies hematuria, Denies urinary frequency and Denies dysuria Musc Denies arthralgias, Denies muscle weakness, Denies numbness and Denies tingling Skin/Breast Denies nail changes and Denies rash Neuro Denies Abnormal speech present, Denies dizziness, Denies syncope, Denies frequent falls, Denies loss of vision, Denies memory loss, Denies numbness, Denies tingling and Denies weakness Psych Denies depression and Denies memory loss Endo Denies fatigue and Denies palpitations Aller/Immun Denies wheezing Physical Exam Vital Signs: Last Vital Signs Pulse 74 07/07/23 14:56 BP 108/74 07/07/23 14:56 BMI result Body Mass Index 32.7 Const General: comfortable and no acute distress Orientation/consciousness: patient oriented x3 HEENT Other: Unremarkable Head: Yes normal to inspection Neck Neck: Yes normal visual inspection Chest Chest palpation & inspection: normal inspection of the chest Resp Auscultation: clear to auscultation bilaterally Cardio Palpation: normal PMI Heart sounds: S1 normal heart sound present, S2 normal heart sound present, no gallops, no murmurs and no rubs GI Palpation (GI): Soft to palpation Back/Spine/Pelvis Other: unremarkable Skin General skin exam: no rashes or lesions noted Neuro General: patient oriented x3 Speech: No Abnormal speech present Extrem General: Yes normal to inspection Psych Mental Status: mental status grossly normal Office Procedures EKG Details: EKG with sinus rhythm at 74/Min; can not exclude old anterior infarct; [place] [id number], Complete Assessment & Plan Assessment & Plan (1) Preoperative cardiovascular examination: Code(s): Z01.810 - Encounter for preprocedural cardiovascular examination (2) PVC (premature ventricular contraction): Code(s): I49.3 - Ventricular premature depolarization (3) S/P ablation of atrial fibrillation: Code(s): Z98.890 - Other specified postprocedural states; Z86.79 - Personal history of other diseases of the circulatory system (4) Peripheral vascular disease: Code(s): I73.9 - Peripheral vascular disease, unspecified (5) Smoker: Code(s): F17.200 - Nicotine dependence, unspecified, uncomplicated (6) Mixed dyslipidemia: Code(s): E78.2 - Mixed hyperlipidemia Plan Smoker, uncontrolled lipids, established vascular disease, history of atrial fibrillation ablation, PVCs on EKG. Recommend comprehensive workup including echocardiogram, Holter and stress test. Her cholesterol panel is quite high but she states she just started on statins. Can do lipids before her follow-up unlikely needs adjustments in meds. Follow-up after the above. Orders: Orders CA echo transthoracic complete Today I49.3 - Ventricular premature depolarization NM cardiolite stress test Today I49.3 - Ventricular premature depolarization, R07.2 - Precordial pain CA stress test Today I49.3 - Ventricular premature depolarization, R07.2 - Precordial pain ECG 3 day holter monitor Today I49.3 - Ventricular premature depolarization, R00.2 - Palpitations Coding Level of Care Code New Pt Level 4 (39781) Diagnoses Preoperative cardiovascular examination Z01.810 PVC (premature ventricular contraction) I49.3 S/P ablation of atrial fibrillation Z98.890; Z86.79 Peripheral vascular disease I73.9 Smoker F17.200 Mixed dyslipidemia E78.2 CPT Codes EKG - CPT: [id number], Complete ([id number])
[2023-07-07 14:56] VITALS: BP 108/74; PULSE 74; BMI 32.7
== END 2023-07-07 15:23 | disposition home or self-care (01) ==
PROVIDERS: PCP Internal Medicine; Visit Provider Internal Medicine
DX: Z01.810 Encounter for preprocedural cardiovascular examination (principal); I49.3 Ventricular premature depolarization; Z98.890 Other specified postprocedural states; Z86.79 Personal history of other diseases of the circulatory system; I73.9 Peripheral vascular disease, unspecified; F17.200 Nicotine dependence, unspecified, uncomplicated; E78.2 Mixed hyperlipidemia
CPT/HCPCS: 93010; 99204

== ENCOUNTER → 2023-07-07 14:48 | Outpatient (BNVA) | payer OTHER, SELFPAY | PROVIDERS: PCP Internal Medicine; Visit Provider Internal Medicine | DX: Z01.810 Encounter for preprocedural cardiovascular examination (principal); I49.3 Ventricular premature depolarization; I73.9 Peripheral vascular disease, unspecified; E78.2 Mixed hyperlipidemia; Z86.79 Personal history of other diseases of the circulatory system; F17.200 Nicotine dependence, unspecified, uncomplicated | CPT/HCPCS: 93005 ==

== ENCOUNTER 2023-07-14 11:26 | Outpatient (AMB) | payer OTHER, SELFPAY ==
[2023-07-14 11:45] VITALS: BP 118/66; PULSE 80; TEMP 36.7; O2SAT 95; BMI 33.4
--- NOTE | 2023-07-14 11:45 | MHC.OFFWIV ---
Intake Vital Signs 07/14/23 11:45 Height 5 ft 6 in Weight 207 lb 4 oz BMI 33.4 BP 118/66 Blood Pressure Location Lt brachial Position Sitting Pulse 80 Pulse Source Pulse Oximeter Temp 98.0 F Temp Source Temporal Artery Scan Pulse Oximetry (%) 95 Oxygen Delivery Method Room Air Intake Visit Reasons: EP Sore throat, cough, Congestion Intake Note: Pt presents to the office today for c/o sore throat, cough and congestion that started wednesday. Patient Tobacco Use Status: Current everyday Tobacco user Allergies No Known Allergies Allergy (Verified 07/14/23 11:47) HPI HPI Comments History of Present Illness Details She presents to office with cough, ST, loss of voice She had choking attack on Wednesday night She is having testing for it; happens often and is all set with work up When she woke up Wednesday am + loss of voice but then cough and cold symptoms started She denies ear pain Minimal post nasal drip Taking theraflu and robitussin Small fever 99.8 but no chills She said + fatigue No body aches PFSH Medical History Ventricular bigeminy Esophageal dysmotility Achalasia of the cricopharyngeus muscle S/P angiogram of extremity (02/03/23) Neck pain with history of cervical spinal surgery A-fib Difficulty swallowing Vitamin D deficiency Impaired fasting glucose Mixed dyslipidemia Varicose veins of right lower extremity with inflammation Claudication Tobacco abuse Obesity due to excess calories Surgical History S/P ablation of atrial fibrillation Hx of colonoscopy Peripheral arterial occlusive disease Social History Housing: House Patient Tobacco Use Status: Current everyday Tobacco user Cigarette Packs Per Day: 0.5 Cigarettes Per Day: 10.0 e-Cigarette/Vaping Use: Never Used Second Hand Smoke Exposure: Yes service: No Current occupational status: employed Current occupational exposures/hazards: No Cognitive needs: No Hearing needs: No Vision needs: No Review of Systems Const Denies body aches, Reports chills, Reports fatigue and Reports fever(s) Eyes Denies blurry vision ENT Denies otalgia, Denies facial pain, Denies nasal discharge, Reports sore throat, Denies throat swelling and Reports other (loss of voice) Card Denies chest pain Resp Reports chest congestion, Reports cough, Reports pain with cough and Denies wheezing GI Denies abdominal pain Skin/Breast Denies rash Endo Reports fatigue Aller/Immun Denies throat swelling and Denies wheezing Physical Exam Vital Signs: Last Vital Signs Temp 98.0 F 07/14/23 11:45 Pulse 80 07/14/23 11:45 BP 118/66 07/14/23 11:45 Pulse Ox 95 07/14/23 11:45 Oxygen Delivery Method Room Air 07/14/23 11:45 BMI result Body Mass Index 33.4 General: Non-toxic, NAD. Speaking full sentences. Skin: Warm dry throughout Eye: EOMI HENT: Airway patent. Uvula midline. No pharyngeal erythema or edema. No DIRECTOR DIVERSITY. Bilateral canals clear. TM non-erythematous, non-bulging. No TM perforation or hemotympanum noted. Respiratory: Crcakles L base. Otherwise CTA bilaterally. No wheezes, rales or rhonchi Cardiac: RRR. No murmur MSK: Full ROM extremities. Neurology: A/O. No aphasia or facial droop. Gait without abnormality Psych: Good mood and affect Results AMB Rapid Strep AMB Rapid Strep Negative Last Edit by Emerald Simons CMA on 07/14/23 11:59 Results Reviewed Results Reviewed: Laboratory Last Values Strep Scn Rapid Clinic Negative 07/14/23 11:58 Assessment & Plan Assessment & Plan (1) Pneumonia: Code(s): J18.9 - Pneumonia, unspecified organism Qualifiers: Pneumonia type: due to unspecified organism Laterality: left Lung location: lower lobe of lung Qualified Code(s): J18.9 - Pneumonia, unspecified organism Plan: Patient seen and evaluated. Crackles L base Otherwise non-toxic choking episode was not while drinking or eating so no concern aspiration Azithromycin Cough syrup with codeine; she is aware of lethargy. No alcoholor driving. Not to take with gabapentin Patient gave verbal understanding and had no additional questions or concerns at time of discharge All questions answered Orders: Orders AMB Rapid Strep Screen Today Z13.9 - Encounter for screening, unspecified Medications: New codeine-guaifenesin 10-100 mg/5 mL take at bedtime. can cause lethargy. dont take with gabapentin 5 mL PO ONCE PRN 50 mL 0RF cough azithromycin start on day 2 of therapy 250 mg PO DAILY 6 days 6 tabs 0RF Coding Level of Care Code Est Pt Level 3 (25706) Diagnoses Pneumonia of left lower lobe due to infectious organism J18.9 Pneumonia type: due to unspecified organism Laterality: left Lung location: lower lobe of lung
== END 2023-07-14 12:18 | disposition home or self-care (01) ==
PROVIDERS: PCP Internal Medicine; Visit Provider Physician Assistant
DX: J18.9 Pneumonia, unspecified organism (principal); J02.9 Acute pharyngitis, unspecified
CPT/HCPCS: 87880; 99213

== ENCOUNTER 2023-07-19 06:17 | Outpatient (REF) | payer OTHER, SELFPAY ==
[2023-07-19 10:42] LABS: Estimated Average Glucose 134 mg/dL; Hemoglobin A1c % 6.3 % (<6.0)
[2023-07-19 10:56] LABS: Alanine Aminotransferase 17 U/L (0-31); Anion Gap 13 (12-20); Aspartate Amino Transferase 21 U/L (5-31); Blood Urea Nitrogen 13 mg/dL (9-16); Calcium 9.5 mg/dL (8.4-10.2); Carbon Dioxide 25 mmol/L (22-29); Chloride 106 mmol/L (96-108); Cholesterol 151 mg/dL (<200); Estimated Glomerular Filt Rate > 60; Glucose Fasting 118 mg/dL (60-99); HDL Cholesterol 37 mg/dL (>40); LDL Cholesterol Calculated 74 mg/dL (<100); Potassium 4.3 mmol/L (3.3-5.1); Sodium 140 mmol/L (135-145); Triglycerides 202 mg/dL (<150)
== END 2023-07-19 06:18 | disposition home or self-care (01) ==
LOC: HO.HMGCLDS 06:17
PROVIDERS: PCP Internal Medicine; Visit Provider Internal Medicine
DX: E78.2 Mixed hyperlipidemia (principal); R73.01 Impaired fasting glucose; I77.9 Disorder of arteries and arterioles, unspecified
CPT/HCPCS: 36415; 80048; 80061; 83036; 84450; 84460

== ENCOUNTER → 2023-07-23 09:54 | Outpatient (REF) | payer OTHER, SELFPAY ==
--- NOTE | ~2023-07-23 | NM_ITS ---
Myocardial perfusion study Indication: Precordial chest pain to evaluate for myocardial ischemia Technique: The patient was brought in for a Lexiscan perfusion study on 07/23/2023. Patient performed low-level exercise and was injected 0.4 mg of Lexiscan intravenously. Within a minute of injection, 30 mCi of sestamibi was given intravenously. Images were obtained using the SPECT gamma camera interlaced with the gating device. Images were obtained in supine position. Resting perfusion study was performed on 07/30/2023. Patient was administered 30 mCi of sestamibi intravenously at rest. Images were then obtained in supine position. Images were processed with the software and compared side to side in short axis, horizontal long axis and vertical long axis views. Findings: The stress perfusion study showed non attenuated images show moderately large area all moderately reduced uptake in the inferolateral as well as the lateral wall and moderately reduced uptake in the basal inferior wall of the LV myocardium.. The gated study shows normal LV systolic function with calculated LVEF of 66%. LV cavity is mildly dilated size. The gated study shows normal wall thickening and contraction of segments. Resting study shows nontender images show normalized uptake in the inferolateral, lateral and basal inferior wall of the LV myocardium. Gating at rest reveals normal systolic wall motion with ejection fraction at 62%. The findings are consistent with moderately large area of moderate intensity inferolateral, lateral as well as basal inferior wall reversible defect suggestive of ischemia in RCA/circumflex distribution. NM/NM cardiolite stress test Impression: 1. Myocardial perfusion imaging study shows moderately large area of moderate intensity ischemia in the inferolateral, lateral and basal inferior wall in RCA/circumflex distribution 2. Gated LVEF is 66% 3. Transient ischemic dilatation present EKG with exercise and was positive for ischemia.
--- NOTE | 2023-07-23 09:57 | CA_ITS ---
Acquisition Time: 2023-07-23 10:10:26 Total Exercise Time: 00:02:16 Test Indications: AFIB, PREOP Medications: SEE H Protocol: CALLI Max HR: 109 BPM 67% of Pred: 161 BPM Max BP: 162/068 mmHG Max Work Load: 4.6 METS Exercise stress test exercise 2 min 16 sec of Calli protocol achieving 67% MPHR, with request to stop due to leg pain, without anginal symptoms, with isolated PVCs, with normotensive response to exercise, with downsloping leads 1, 2, 3, aVF, V3 - V6 meeting criteria for ischemia. Test changed to pharmacologlcal stress test with Lexiscan injection while sitting and kicking her legs, with isolated PVCs, with normotensive response to injection, with downsloping leads 1, 2, 3, aVF, V3 - V6. Aminophylline 75mg IVP given to reverse Lexiscan injection. NUclear images pending. Test reviewed with Dr. Cota. Referred By: Denton Cota Overread By: Marlyn Trammell
== END ==
LOC: HO.CARD 09:54
PROVIDERS: PCP Internal Medicine; Visit Provider Internal Medicine
DX: R07.2 Precordial pain (principal); I49.3 Ventricular premature depolarization
CPT/HCPCS: 78452; 93017; A9500; J0280; J2785

== ENCOUNTER → 2023-07-23 09:57 | Outpatient (BNV) | payer OTHER, SELFPAY | PROVIDERS: PCP Internal Medicine; Visit Provider Nurse Practitioner | DX: R07.2 Precordial pain (principal) | CPT/HCPCS: 78452; 93016; 93018 ==

== ENCOUNTER → 2023-07-30 12:46 | Outpatient (REF) | payer OTHER, SELFPAY ==
--- NOTE | 2023-07-30 12:56 | CA_ITS ---
Transthoracic Echocardiogram Patient (Last, First, Middle): Britt Jamison Anne Gender: Female Date of : 1965 Age: 58 Procedure Date: 07/30/2023 Procedure Type: Transthoracic Echocardiogram Location: OP Height: 167.64 cm Weight: 92.99 kg BSA: 2.02 m2 Heart Rate: bpm BP: 130 / 80 mmHg Type Bar And Segment Assembler: TO Referring MD: Denton Cota MD First Aid Teacher: Kev Nova MD Symptoms: I49.3 - Ventricular premature depolarization Study Quality: Fair/Contrast ECG Rhythm: Sinus Conclusions: - Essentially normal study Findings Procedure Information Contrast agent, definity, is being given per protocol without apparent complications. Left Ventricle Normal left ventricular size, thickness, and systolic function. The visually estimated ejection fraction is between 60-65%. Spectral Doppler is indicative of a normal filling pattern. Right Ventricle The right ventricle was not well visualized. There is normal right ventricular systolic function. Atria The left atrium is normal in size. There is lipomatous hypertrophy of the interatrial septum. There is no evidence of interatrial shunt. The right atrium was not well visualized. Aortic Valve The aortic valve structure and function is likely normal. There is no aortic valve stenosis. There is no aortic valve regurgitation. Mitral Valve Likely normal mitral valve structure and function. There is trace mitral valve regurgitation. There is no mitral valve stenosis. Pulmonic Valve The pulmonic valve was not well visualized. Tricuspid Valve The tricuspid valve was not well visualized. Tricuspid regurgitation envelope is inadequate for calculation of right ventricular systolic pressure. Normal right atrial pressure. Great Vessels All visible segments of the aorta are normal in size. The pulmonary artery was not well visualized. There is no dilatation of the ascending aorta measuring 3.10 cm. Venous The inferior vena cava is normal in size and collapses greater than 50% with inspiration. Pericardium/Pleural The pericardium was not well visualized. Measurements 2D Linear Measurements IVSd: 0.88 0.6-0.9/0.6-1.0 cm LVIDd: 5.40 3.9-5.3/4.2-5.9 cm LVIDd Index: 2.67 2.4-3.2/2.2-3.1 cm/m2 LVIDs: 3.37 2.0-3.6 cm LVPWd: 0.90 0.7-1.1 cm LA Diam: 3.70 2.7-3.8/3.0-4.0 cm LAIDs Index: 1.83 1.5-2.3 cm/m2 LV Mass: 221.67 67-162/88-224 g LV Mass Index: 109.74 43-95/49-115 g/m2 LVOT Diam: 2.00 3.0+(-)1.3 cm 2D Systolic Function EF 4C: 65.20 >55% EF 2C: 58.30 >55% EF BiP: 63.60 >55% Mitral Valve MV Pk E: 0.47 MV PK A: 0.53 MV Decel Time: 229.00 E/A: 0.90 E'Lateral: 5.77 E'Medial: 4.57 E/E' Med: 10.30 E/E' Lat: 8.20 PHT: 67.00 MVA PHT: 3.28 Decel Wilson: 2.06 Aortic Valve AoV Pk Trevor: 1.10 AoV Mn Trevor: 0.73 AoV VTI: 0.23 AoV Pk Grad: 5.00 Aov Mn Grad: 2.00 DYLAN Cont.VTI: 2.08 LVOT LVOT Pk Trevor: 0.67 LVOT Mn Trevor: 0.47 LVOT VTI: 0.16 LVOT Pk Grad: 2.00 LVOT Mn Grad: 1.00 LVOT Diam: 2.00 LVOT Area: 3.14 Diastolic Function MV Pk E: 0.47 MV Pk A: 0.53 E/A: 0.90 E'Medial: 4.57 E/E' Med: 10.30 E' Laterial: 5.77 E/E' Lat: 8.20 Right Ventricle TAPSE (mm): 21.70 TVS' Trevor: 11.20 Tricuspid Valve RA Press: 3.00 Great Vessels Aorta Sinus of Valsalva: 2.94 2.0-3.5 cm Ao Asc: 3.10 2.1-3.4 cm Updated in Other Vendor System with Status of Final Kev Nova MD electronically signed on 07/31/2023 5:46:44 AM with status of Final
--- NOTE | 2023-07-30 12:57 | HM_ITS ---
Conclusion: 1. Patient was monitored for total period of 3 days 2. Baseline was normal sinus rhythm with average heart of 72 beats per minute 3. Frequent PVCs noted with total burden of 13.8% 4. No significant pauses noted 5. Patient reported to events of dizziness correlated with isolated PVCs MTDD
== END ==
LOC: HO.CARD 12:46
PROVIDERS: PCP Internal Medicine; Visit Provider Internal Medicine
DX: I49.3 Ventricular premature depolarization (principal); R00.2 Palpitations
CPT/HCPCS: 93242; 93306; Q9957

== ENCOUNTER → 2023-07-30 12:56 | Outpatient (BNV) | payer OTHER, SELFPAY | PROVIDERS: PCP Internal Medicine; Visit Provider Internal Medicine Cardiovascular Disease | DX: I49.3 Ventricular premature depolarization (principal) | CPT/HCPCS: 93244; 93306 ==

== ENCOUNTER 2023-08-06 13:47 | Outpatient (AMB) | payer OTHER, SELFPAY ==
[2023-08-06 13:49] VITALS: BP 120/68; PULSE 60; BMI 33.4
--- NOTE | 2023-08-06 13:49 | MHC.OFFVIS ---
Vital Signs 08/06/23 13:49 Height 5 ft 6 in Weight 207 lb 3.752 oz BMI 33.4 BP 120/68 Blood Pressure Location Rt brachial Position Sitting Pulse 60 Pulse Source Pulse Oximeter Intake Visit Reasons: Follow up/Wants to discuss cardiac cath (09/01) Marine Steward Required: No Knockout Machine Operator: Knockout Machine Operator Present Allergies No Known Allergies Allergy (Verified 08/06/23 13:51) Medication List - Last Reconciled 08/06/23 by Janessa Mayes NP-C amitriptyline 25 mg PO BEDTIME aspirin (Adult Aspirin Regimen) 81 mg PO DAILY gabapentin 300 mg PO omega-3 fatty acids 1,250 mg PO BID propranolol ER 120 mg PO DAILY rosuvastatin 5 mg PO DAILY HPI HPI Follow up/Wants to discuss cardiac cath (09/01): Details: Britt is a 58-year-old female past medical history of obesity, hyperlipidemia, impaired fasting glucose, peripheral vascular disease, claudication, who recently underwent cardiac evaluation as part of preop for upper endoscopy and found to have abnormal nuclear stress test. Orders have already been placed for a cardiac catheterization. She presents for follow-up to go over results and discuss catheterization. Today she reports that she has no chest discomfort at rest or with activity. She denies having shortness of breath with activity, no PND, orthopnea or edema. She has bilateral calf discomfort with walking even short distances. She follows closely with Dr. Nagy. She has no lightheadedness, presyncope, syncope, falls. She is taking her meds as directed. Her niece is present. [facility] Medical History Ventricular bigeminy Esophageal dysmotility Achalasia of the cricopharyngeus muscle S/P angiogram of extremity (02/03/23) Neck pain with history of cervical spinal surgery A-fib Difficulty swallowing Vitamin D deficiency Impaired fasting glucose Mixed dyslipidemia Varicose veins of right lower extremity with inflammation Claudication Tobacco abuse Obesity due to excess calories Surgical History S/P ablation of atrial fibrillation Hx of colonoscopy Peripheral arterial occlusive disease Social History Housing: House Patient Tobacco Use Status: Current everyday Tobacco user Cigarette Packs Per Day: 0.5 Cigarettes Per Day: 10.0 e-Cigarette/Vaping Use: Never Used Second Hand Smoke Exposure: Yes service: No Current occupational status: employed Current occupational exposures/hazards: No Cognitive needs: No Hearing needs: No Vision needs: No Review of Systems Const All systems reviewed & are unremarkable except as noted in HPI and below ENT Denies dizziness Card Denies chest pain, Denies chest pain at rest, Denies chest pain with activity, Denies rapid heart rate, Denies pedal edema, Denies edema, Denies leg edema, Denies lightheadedness, Denies palpitations, Denies dyspnea, Denies dyspnea on exertion and Denies orthopnea Resp Denies cough, Denies dyspnea and Denies dyspnea on exertion GI Denies hematochezia and Denies change in stool character Musc Details: leg pain with ambulation Reports abnormal gait, Denies limited range of motion, Denies muscle cramps, Denies muscle weakness, Denies numbness, Denies radiating pain into limb, Denies stiffness and Denies tingling Neuro Reports abnormal gait, Denies dizziness, Denies numbness and Denies tingling Endo Denies palpitations Physical Exam Vital Signs: Last Vital Signs Pulse 60 08/06/23 13:49 BP 120/68 08/06/23 13:49 BMI result Body Mass Index 33.4 Const General: cooperative, healthy appearing, comfortable and no acute distress Orientation/consciousness: patient oriented x3 Neck Neck: Yes normal visual inspection and Yes no JVD Resp Effort & Inspection: normal respiratory effort Auscultation: clear to auscultation bilaterally, no rales, no rhonchi and no wheezes Cardio Jugular venous distension: no JVD Rate: regular rate Rhythm: regular rhythm Heart sounds: S1 normal heart sound present, S2 normal heart sound present, no murmurs and no rubs Neuro General: patient oriented x3 Extrem General: Yes normal to inspection, No no pedal edema and No calf tenderness Psych Appearance: grossly normal Mental Status: mental status grossly normal Speech and movement: Normal speech and movement present Assessment & Plan Assessment & Plan (1) Abnormal nuclear stress test: Code(s): R94.39 - Abnormal result of other cardiovascular function study Category: Medical Plan: Recent cardiac evaluation as part of preop evaluation for upper endoscopy. She has no prior known history of CAD. She does have cardiac risk factors of obesity, hyperlipidemia, impaired fasting glucose, smoking, peripheral vascular disease. She had an echocardiogram 07/30/2023 showing normal study. A Holter monitor done 07/30/2023 for 3 days shows sinus rhythm with average heart rate 72, frequent PVCs, 13.8% of time, symptom of dizziness correlated with PVCs. She had a exercise nuclear stress test done on 07/23/2023. She was only able to walk 2 minutes 16 seconds on the treadmill and needed to stop due to leg pains. Testing was changed to a pharmacological nuclear stress test which then showed moderately large area of moderate intensity ischemia in the inferior lateral, lateral and basal inferior wall, RCA / circumflex distribution. Test results reviewed with her in detail. Presumed finding of coronary artery disease discussed. Need for cardiac catheterization to further evaluate. Catheterization procedure, potential findings and risks reviewed including bleeding, infection, FERNANDO, mi, stroke. Preprocedure lab orders in place. All questions answered. She is agreeable to proceed. Cardiac catheterization already scheduled for 09/02/2023. Cath instructions given to her. Cardiology follow-up 2 weeks post cath, sooner if needed. Signs and symptoms of angina reviewed. Emergency care if ever needed for symptoms. Continue on aspirin, rosuvastatin and propranolol. (2) Peripheral vascular disease: Code(s): I73.9 - Peripheral vascular disease, unspecified Category: Medical Plan: Lower extremity peripheral vascular disease with stents. Does report bilateral calf claudication. Follows with Dr. Nagy. (3) PVC (premature ventricular contraction): Code(s): I49.3 - Ventricular premature depolarization Category: Medical Plan: Recent Holter does show frequent PVCs. She reports feeling brief lightheadedness with PVCs. She does not feel heart palpitations. She is on propranolol. Cardiac catheterization being done as above. (4) S/P ablation of atrial fibrillation: Code(s): Z98.890 - Other specified postprocedural states; Z86.79 - Personal history of other diseases of the circulatory system Category: Surgical Plan: History of atrial fibrillation status post ablation approximately 10 years ago. No known documented recurrent AFib. Recent Holter does not show AFib. She is not on anticoagulation with the exception of aspirin. (5) Smoker: Code(s): F17.200 - Nicotine dependence, unspecified, uncomplicated Category: Social Hx Plan: Current smoker 1/2 pack per day. Plan Time spent on chart review, documentation, interview and assessment Coding Level of Care Code Est Pt Level 4 (48141) Diagnoses Abnormal nuclear stress test R94.39 Peripheral vascular disease I73.9 PVC (premature ventricular contraction) I49.3 S/P ablation of atrial fibrillation Z98.890; Z86.79 Smoker F17.200 Time Spent (min) 36
== END 2023-08-06 14:34 | disposition home or self-care (01) ==
PROVIDERS: PCP Internal Medicine; Visit Provider Nurse Practitioner Family
DX: R94.39 Abnormal result of other cardiovascular function study (principal); I73.9 Peripheral vascular disease, unspecified; I49.3 Ventricular premature depolarization; Z98.890 Other specified postprocedural states; Z86.79 Personal history of other diseases of the circulatory system; F17.200 Nicotine dependence, unspecified, uncomplicated
CPT/HCPCS: 99214

== ENCOUNTER → 2023-08-06 13:47 | Outpatient (BNVA) | payer OTHER, SELFPAY | PROVIDERS: PCP Internal Medicine; Visit Provider Nurse Practitioner Family ==

== ENCOUNTER 2023-08-24 06:05 | Outpatient (REF) | payer OTHER, SELFPAY ==
[2023-08-24 10:28] LABS: MANUAL DIFF FLAG NO
[2023-08-24 10:38] LABS: Basophils Absolute Auto 0.1 X10*3/uL (0.0-0.2); Basophils Percent Auto 0.4 % (0-2); Eosinophils Absolute Auto 0.4 X10*3/uL (0.0-0.4); Hematocrit 45.2 % (37.0-47.0); Imm Gran Abs Auto 0.04 X10*3/uL (0.00-0.03); Imm Gran Pct Auto 0.3 % (0.0-0.4); Lymphocytes Percent Auto 33.6 % (20-40); Mean Corpuscular HGB Conc 33.2 g/dl (31.0-35.0); Mean Corpuscular Hemoglobin 31.8 pg (27.0-33.0); Mean Platelet Volume 10.6 fL (9.4-12.3); Monocytes Absolute Auto 0.8 X10*3/uL (0.1-1.2); Monocytes Percent Auto 6.6 % (2-11); Neutrophils Absolute Auto 6.7 x10*3/uL (2.0-8.3); Neutrophils Percent Auto 56.1 % (45-73); Platelet Count 220 X10*3/uL (160-400); Red Blood Count 4.71 X10*6/uL (4.20-5.50); Red Cell Distribution Width 14.7 % (11.0-16.0)
[2023-08-24 10:41] LABS: INTERNATIONAL NORM RATIO 0.9 (0.9-1.1); Prothrombin Time 10.5 SEC (11.1-13.3)
[2023-08-24 10:54] LABS: Anion Gap 13 (12-20); Blood Urea Nitrogen 10 mg/dL (9-16); Calcium 9.5 mg/dL (8.4-10.2); Carbon Dioxide 26 mmol/L (22-29); Chloride 107 mmol/L (96-108); Estimated Glomerular Filt Rate > 60; Glucose Random 116 mg/dL (60-115); Potassium 4.4 mmol/L (3.3-5.1); Sodium 142 mmol/L (135-145)
== END 2023-08-24 06:06 | disposition home or self-care (01) ==
LOC: HO.HMGCLDS 06:05
PROVIDERS: PCP Internal Medicine; Visit Provider Internal Medicine
DX: Z01.810 Encounter for preprocedural cardiovascular examination (principal); E78.2 Mixed hyperlipidemia; R94.39 Abnormal result of other cardiovascular function study; I73.9 Peripheral vascular disease, unspecified; I49.8 Other specified cardiac arrhythmias; I49.3 Ventricular premature depolarization
CPT/HCPCS: 36415; 80048; 85025; 85610

== ENCOUNTER → 2023-09-02 23:59 | Outpatient (BNV) | payer OTHER, SELFPAY | PROVIDERS: PCP Internal Medicine; Visit Provider Internal Medicine Cardiovascular Disease | DX: R93.1 Abnormal findings on diagnostic imaging of heart and coronary circulation (principal); Z01.810 Encounter for preprocedural cardiovascular examination | CPT/HCPCS: 93458; 99152 ==

== ENCOUNTER 2023-09-16 14:57 | Outpatient (AMB) | payer OTHER, SELFPAY ==
[2023-09-16 15:17] VITALS: BP 90/60; PULSE 74; BMI 33.7
--- NOTE | 2023-09-16 15:17 | A.OFFVIS_ITS ---
Vital Signs 09/16/23 15:17 Height 5 ft 6 in Weight 208 lb 8.917 oz BMI 33.7 BP 90/60 Blood Pressure Location Lt brachial Position Sitting Pulse 74 Pulse Source Pulse Oximeter Intake Visit Reasons: Follow up post cardiac cath Billiard Table Assembler Required: No Allergies No Known Allergies Allergy (Verified 09/16/23 15:19) Medication List - Last Reconciled 09/16/23 by Janessa Mayes, VICE PRESIDENT DIGITAL STRATEGIST-C amitriptyline 25 mg PO BEDTIME aspirin (Adult Aspirin Regimen) 81 mg PO DAILY gabapentin 300 mg PO omega-3 fatty acids 1,250 mg PO BID propranolol ER 120 mg PO DAILY rosuvastatin 5 mg PO DAILY HPI HPI Follow up post cardiac cath: Details: Britt is a 58-year-old female past medical history of obesity, hyperlipidemia, impaired fasting glucose, peripheral vascular disease, claudication, who recently underwent cardiac evaluation as part of preop for upper endoscopy and found to have abnormal nuclear stress test. She underwent cardiac catheterization and now presents for follow-up. Today she reports that she has no chest discomfort at rest or with activity. She denies having shortness of breath with activity, no PND, orthopnea or edema. She has bilateral calf discomfort with walking even short distances. She follows closely with Dr. Nagy. She has no lightheadedness, presyncope, syncope, falls. She is taking her meds as directed. Right radial catheterization site well healed. ON LICENSE OF [facility] Medical History Ventricular bigeminy Esophageal dysmotility Achalasia of the cricopharyngeus muscle S/P angiogram of extremity (02/03/23) Neck pain with history of cervical spinal surgery A-fib Difficulty swallowing Vitamin D deficiency Impaired fasting glucose Mixed dyslipidemia Varicose veins of right lower extremity with inflammation Claudication Tobacco abuse Obesity due to excess calories Surgical History S/P ablation of atrial fibrillation Hx of colonoscopy Peripheral arterial occlusive disease Social History Housing: House Patient Tobacco Use Status: Current everyday Tobacco user Cigarette Packs Per Day: 0.5 Cigarettes Per Day: 10.0 e-Cigarette/Vaping Use: Never Used Second Hand Smoke Exposure: Yes service: No Current occupational status: employed Current occupational exposures/hazards: No Cognitive needs: No Hearing needs: No Vision needs: No Review of Systems Const All systems reviewed & are unremarkable except as noted in HPI and below ENT Denies dizziness Card Denies chest pain, Denies chest pain at rest, Denies chest pain with activity, Denies rapid heart rate, Denies pedal edema, Denies edema, Denies leg edema, Denies lightheadedness, Denies palpitations, Denies dyspnea, Denies dyspnea on exertion and Denies orthopnea Resp Denies cough, Denies dyspnea and Denies dyspnea on exertion GI Denies hematochezia and Denies change in stool character Musc Denies abnormal gait, Denies limited range of motion, Denies muscle cramps, Denies muscle weakness, Denies numbness, Denies radiating pain into limb, Denies stiffness and Denies tingling Neuro Denies abnormal gait, Denies dizziness, Denies numbness and Denies tingling Endo Denies palpitations Physical Exam Vital Signs: Last Vital Signs Pulse 74 09/16/23 15:17 BP 90/60 09/16/23 15:17 BMI result Body Mass Index 33.7 Const General: cooperative, healthy appearing, comfortable and no acute distress Orientation/consciousness: patient oriented x3 Neck Neck: Yes normal visual inspection Resp Effort & Inspection: normal respiratory effort Auscultation: clear to auscultation bilaterally, no rales, no rhonchi and no wheezes Cardio Jugular venous distension: no JVD Rate: regular rate Rhythm: regular rhythm Heart sounds: S1 normal heart sound present, S2 normal heart sound present, no murmurs and no rubs Neuro General: patient oriented x3 Extrem General: Yes normal to inspection Psych Appearance: grossly normal Mental Status: mental status grossly normal Speech and movement: Normal speech and movement present Assessment & Plan Assessment & Plan (1) Abnormal nuclear stress test: Code(s): R94.39 - Abnormal result of other cardiovascular function study Category: Medical Plan: Recent cardiac evaluation as part of preop evaluation for upper endoscopy. She has no prior known history of CAD. She does have cardiac risk factors of obesity, hyperlipidemia, impaired fasting glucose, smoking, peripheral vascular disease. She had an echocardiogram 07/30/2023 showing normal study. A Holter monitor done 07/30/2023 for 3 days shows sinus rhythm with average heart rate 72, frequent PVCs, 13.8% of time, symptom of dizziness correlated with PVCs. She had a exercise nuclear stress test done on 07/23/2023. She was only able to walk 2 minutes 16 seconds on the treadmill and needed to stop due to leg pains. Testing was changed to a pharmacological nuclear stress test which then showed moderately large area of moderate intensity ischemia in the inferior lateral, lateral and basal inferior wall, RCA / circumflex distribution. Test results reviewed with her in detail. Presumed finding of coronary artery disease d iscussed. She underwent cardiac catheterization on 09/02/2023 showing proximal RCA 100% CAR SHIFTER with [id number] collaterals, no significant disease elsewhere. Medical management with aspirin 81 mg daily indefinitely, rosuvastatin with ideal LDL goal less than 70, propranolol to assist with heart rate control. Signs and symptoms of angina reviewed. Emergency care if ever needed for symptoms. Cardiology follow-up 6 months, sooner if needed (2) S/P cardiac cath: Comment: 09/02/2023, left main normal, lad less than 30% stenosis, left circumflex minimal irregularities, RCA proximal 100% stenosis, CAR SHIFTER, [id number] collaterals Code(s): Z98.890 - Other specified postprocedural states Category: Surgical Plan: Right radial catheterization site well healed (3) Peripheral vascular disease: Code(s): I73.9 - Peripheral vascular disease, unspecified Category: Medical Plan: Lower extremity peripheral vascular disease with stents. Does report bilateral calf claudication. Follows with Dr. Nagy. (4) PVC (premature ventricular contraction): Code(s): I49.3 - Ventricular premature depolarization Category: Medical Plan: Recent Holter does show frequent PVCs. She reports feeling brief lightheadedness at times which she feels may be PVCs. She does not feel heart palpitations. She is on propranolol which she will continue at this time.. (5) S/P ablation of atrial fibrillation: Code(s): Z98.890 - Other specified postprocedural states; Z86.79 - Personal history of other diseases of the circulatory system Category: Surgical Plan: History of atrial fibrillation status post ablation approximately 10 years ago. No known documented recurrent AFib. Recent Holter does not show AFib. She is not on anticoagulation with the exception of aspirin. (6) Smoker: Code(s): F17.200 - Nicotine dependence, unspecified, uncomplicated Category: Social Hx Plan: Current smoker 1/2 pack per day. (7) Preoperative cardiovascular examination: Code(s): Z01.810 - Encounter for preprocedural cardiovascular examination Category: Medical Plan: Patient has planned endoscopy in the near future. She may proceed with intermediate cardiac risk. Aspirin can be held if needed. Call/consult Cardiology if needed. (8) CAD (coronary artery disease): Code(s): I25.10 - Atherosclerotic heart disease of [place] coronary artery without angina pectoris Category: Medical Plan: Coronary artery disease as above. CAR SHIFTER of the RCA. Nonobstructive disease elsewhere. No anginal symptoms. Continue med management. Plan Time spent on chart review, documentation, interview and assessment Orders: Orders Comprehensive Met. Panel 2 Months I25.10 - Atherosclerotic heart disease of [place] coronary artery without angina pectoris Lipid Panel 2 Months I25.10 - Atherosclerotic heart disease of [place] coronary artery without angina pectoris Medications: New rosuvastatin Dose increased 10 mg PO DAILY 90 tabs 3RF Discontinued rosuvastatin Discontinued Reason: Doctor's Order 5 mg PO DAILY 90 tabs 1RF Coding Level of Care Code Est Pt Level 4 (28782) Diagnoses Abnormal nuclear stress test R94.39 S/P cardiac cath Z98.890 Peripheral vascular disease I73.9 PVC (premature ventricular contraction) I49.3 S/P ablation of atrial fibrillation Z98.890; Z86.79 Smoker F17.200 Preoperative cardiovascular examination Z01.810 CAD (coronary artery disease) I25.10 Time Spent (min) 34
== END 2023-09-16 16:05 | disposition home or self-care (01) ==
PROVIDERS: PCP Internal Medicine; Visit Provider Nurse Practitioner Family
DX: R94.39 Abnormal result of other cardiovascular function study (principal); Z98.890 Other specified postprocedural states; I73.9 Peripheral vascular disease, unspecified; I49.3 Ventricular premature depolarization; Z86.79 Personal history of other diseases of the circulatory system; F17.200 Nicotine dependence, unspecified, uncomplicated; Z01.810 Encounter for preprocedural cardiovascular examination; I25.10 Atherosclerotic heart disease of native coronary artery without angina pectoris
CPT/HCPCS: 99214

== ENCOUNTER → 2023-09-16 14:57 | Outpatient (BNVA) | payer OTHER, SELFPAY | PROVIDERS: PCP Internal Medicine; Visit Provider Nurse Practitioner Family ==

== ENCOUNTER 2023-10-20 14:53 | Outpatient (REF) | payer OTHER, SELFPAY ==
--- NOTE | ~2023-10-20 | US_ITS ---
EXAMINATION: US NONINVASIVE ASSESSMENT OF THE ARTERIES OF BOTH LOWER EXTREMITIES INCLUDING PVR EXAM AND BILATERAL LOWER EXTREMITY DUPLEX. CLINICAL INFORMATION: Peripheral vascular disease COMPARISON: CASTILLO/lower extremity duplex May 10, 2023 TECHNIQUE: Ankle pulse volume recordings, ankle pressure measurements and ankle brachial indices were obtained of the lower extremity arterial system bilaterally in addition to duplex Doppler techniques with wave form analysis and measurement of velocities in the common femoral, profunda femoral, superficial femoral, popliteal, tibial and peroneal arteries. The study was performed only at rest. FINDINGS: RIGHT LE. THE RIGHT ANKLE-BRACHIAL INDEX IS: 0.66 >0.97-1.25 = normal - no significant arterial disease 0.75-0.96 = mild peripheral arterial disease 0.5-0.74 = moderate peripheral arterial disease <0.50 = severe peripheral arterial disease <0.30 = critical arterial disease 2. SEGMENTAL PRESSURES (mmHg): Ankle: PT 95, DP 84 3. PVR WAVEFORMS: Ankle: Abnormal 4. DIRECT DUPLEX: Common femoral artery: 163 cm/s, biphasic Profunda femoris artery: 79 cm/s, biphasic Superficial femoral artery (proximal): 125 cm/s, biphasic Superficial femoral artery (mid): 225 cm/s, biphasic Superficial femoral artery (distal): 36 cm/s, biphasic Proximal Popliteal artery: 65 cm/s, biphasic Mid posterior tibial artery: 18 cm/s, monophasic LEFT LE. THE LEFT ANKLE-BRACHIAL INDEX IS: 0.59 >0.97-1.25 = normal - no significant arterial disease 0.75-0.96 = mild peripheral arterial disease 0.5-0.74 = moderate peripheral arterial disease <0.50 = severe peripheral arterial disease <0.30 = critical arterial disease 2. SEGMENTAL PRESSURES: Ankle: PT 85, DP 79 3. PVR WAVEFORMS: Ankle: Abnormal 4. DIRECT DUPLEX: Common femoral artery: 260 cm/s, biphasic Profunda femoris artery: 216 cm/s, biphasic Superficial femoral artery (proximal): 224 cm/s, biphasic Superficial femoral artery (mid): Occluded Superficial femoral artery (distal): 38 cm/s, biphasic Distal popliteal artery: 41 cm/s, biphasic Mid posterior tibial artery: 27 cm/s, biphasic US/US arterial duplex LE BI IMPRESSION: 1. Moderate bilateral peripheral vascular disease. Progressive on the right (CASTILLO 0.66, previously 0.72) and stable on the left (CASTILLO 0.59, previously 0.58). 2. High-grade stenosis of the right mid superficial femoral artery. 3. Short segment occlusion of the left mid superficial femoral artery. 4. Redemonstration of asymmetric blood pressure within the brachial arteries, right (144) greater than left (112), suggestive of left subclavian atherosclerotic disease.
== END 2023-10-20 14:54 | disposition home or self-care (01) ==
LOC: HO.US 14:53
PROVIDERS: PCP Internal Medicine; Visit Provider Surgery Vascular Surgery
DX: I77.9 Disorder of arteries and arterioles, unspecified (principal); I73.9 Peripheral vascular disease, unspecified
CPT/HCPCS: 93923; 93925

== ENCOUNTER 2023-11-02 13:30 | Outpatient (AMB) | payer OTHER, SELFPAY ==
[2023-11-02 13:40] VITALS: BMI 33.6
--- NOTE | 2023-11-02 13:40 | A.OFFVIS_ITS ---
Vital Signs 11/02/23 13:40 Height 5 ft 6 in Weight 208 lb BMI 33.6 Intake Visit Reasons: 6 mo follow up 10/20/23 Art US Intake Note: 6 mo follow up arterial US 10/20/23 w/ hx of Right Angio 02/03/23, Pt states Right LE is worse than the Left LE. Pt can walk about 2 aisle lengths at the grocery store continuously but still has to stop sometimes due to the pain. Also states bilateral LE swelling, Right slightly worse than Left. Accompanied by: Self / Same As Patient Allergies No Known Allergies Allergy (Verified 11/02/23 13:45) HPI HPI 6 mo follow up 10/20/23 Art US: Details: Very pleasant 58-year-old female presents for routine surveillance follow-up regarding peripheral vascular disease. She has undergone previous right SFA atherectomy and plasty. She reports she was walking better distances for awhile. More recently has been having difficulty ambulating and reports that it is more so on the right lower extremity. In the interim she has undergone cardiac catheterization. She does smoke about a half a pack per day and is a nondiabetic. She is being maintained on aspirin and high-dose statin. [facility] Medical History Ventricular bigeminy Esophageal dysmotility Achalasia of the cricopharyngeus muscle S/P angiogram of extremity (02/03/23) Neck pain with history of cervical spinal surgery A-fib Difficulty swallowing Vitamin D deficiency Impaired fasting glucose Mixed dyslipidemia Varicose veins of right lower extremity with inflammation Claudication Tobacco abuse Obesity due to excess calories Surgical History S/P ablation of atrial fibrillation Hx of colonoscopy Peripheral arterial occlusive disease Social History Housing: House Patient Tobacco Use Status: Current everyday Tobacco user Cigarette Packs Per Day: 0.5 Cigarettes Per Day: 10.0 e-Cigarette/Vaping Use: Never Used Second Hand Smoke Exposure: Yes service: No Current occupational status: employed Current occupational exposures/hazards: No Cognitive needs: No Hearing needs: No Vision needs: No Review of Systems Const All systems reviewed & are unremarkable except as noted in HPI and below Reports no additional complaints ENT Reports Normal hearing present Card Denies chest pain, Denies chest pain at rest, Denies chest pain with activity and Denies pedal edema Resp Denies cough GI Denies abdominal pain Musc Denies abnormal gait, Denies muscle cramps and Denies radiating pain into limb Skin/Breast Denies skin ulcer and Denies wounds Neuro Reports Normal hearing present and Denies abnormal gait Psych Reports no additional complaints Physical Exam Vital Signs: BMI result Body Mass Index 33.6 Const General: cooperative, healthy appearing and comfortable Orientation/consciousness: oriented to person, oriented to place and oriented to time HEENT Head: Yes normal to inspection Neck Neck: Yes normal visual inspection Carotids: no bruits Chest Chest palpation & inspection: normal inspection of the chest Resp Effort & Inspection: normal respiratory effort and able to speak in complete sentences Auscultation: clear to auscultation bilaterally, no crackles, no rales, no rhonchi and no wheezes Cardio Other: Bilateral DP signals Rate: regular rate Rhythm: regular rhythm Heart sounds: S1 normal heart sound present and S2 normal heart sound present Bruits: no carotid bruits Peripheral pulses: Peripheral pulses 2+ throughout GI Inspection: Yes normal to inspection Skin Wounds: no wounds Hair: normal Neuro General: oriented to person, oriented to place and oriented to time Cranial nerves: Yes CN's II-XII intact bilaterally and Yes Normal hearing present Cognition (Neuro): normal cognition Motor exam (neuro): 5/5 motor strength present throughout Extrem Other: venous exam: No significant superficial varicosities or spider telangiectasias, minimal edema General: No clubbing, No cyanosis and No edema Psych Appearance: grossly normal Mental Status: mental status grossly normal Speech and movement: Normal speech and movement present Results Reviewed Results Reviewed: Noninvasive arterial testing dated 10/20/2023 demonstrates CASTILLO on the right of 0.66 and on the left 0.59. Written report and images were reviewed. Assessment & Plan Assessment & Plan (1) Peripheral arterial occlusive disease: Comment: 03/11/2022 right external iliac plasty 02/03/2023 right SFA atherectomy and plasty Code(s): I77.9 - Disorder of arteries and arterioles, unspecified Category: Surgical Plan: Patient notes leg pain when walking distances. I have discussed the pathophysiology of peripheral vascular disease with the patient. I have also discussed risk factor modification. I have reviewed the patient's arterial testing which reveals right CASTILLO of 0.66 with high-grade mid SFA disease. the patient would benefit from a right leg endovascular peripheral angiogram with possible angioplasty, stent, and/or atherectomy. This has been discussed in detail with the patient along with risks, benefits, and complications. This includes but is not limited to bleeding, infection, heart attack, need for emergent surgical repair, limb ischemia, blood vessel damage, bleeding, puncture, kidney injury, bruising, allergic reaction, and skin reaction. The patient demonstrates a clear understanding. We will schedule for the next appropriate time. Thank you for allowing us to assist in this patient's care. (2) Bilateral carotid artery stenosis: Code(s): I65.23 - Occlusion and stenosis of bilateral carotid arteries Category: Medical Plan: Will workup carotid disease upon surveillance follow-up for her arterial intervention. Coding Level of Care Code Est Pt Level 4 (65814) Diagnoses Peripheral arterial occlusive disease I77.9 Bilateral carotid artery stenosis I65.23
== END 2023-11-02 14:10 | disposition home or self-care (01) ==
PROVIDERS: PCP Internal Medicine; Visit Provider Surgery Vascular Surgery
DX: I77.9 Disorder of arteries and arterioles, unspecified (principal); I65.23 Occlusion and stenosis of bilateral carotid arteries
CPT/HCPCS: 99214

== ENCOUNTER → 2023-11-02 13:30 | Outpatient (BNVA) | payer OTHER, SELFPAY | PROVIDERS: PCP Internal Medicine; Visit Provider Surgery Vascular Surgery ==

== ENCOUNTER 2023-11-10 05:41 | Day surgery (SDC) | payer OTHER, SELFPAY ==
[2023-11-10] VITALS (10 sets, daily range): BP systolic 101–139; BP diastolic 55–78; PULSE 63–67; RESP 16–18; TEMP 36.1–37; O2SAT 92–98; BMI 32.9
[2023-11-10 06:34] LABS: MANUAL DIFF FLAG NO
[2023-11-10 06:43] LABS: Basophils Absolute Auto 0.1 X10*3/uL (0.0-0.2); Basophils Percent Auto 0.5 % (0-2); Eosinophils Absolute Auto 0.3 X10*3/uL (0.0-0.4); Eosinophils Percent Auto 2.6 % (0-4); Hematocrit 45.1 % (37.0-47.0); Hemoglobin 15.4 g/dl (12.0-16.0); Imm Gran Abs Auto 0.04 X10*3/uL (0.00-0.03); Imm Gran Pct Auto 0.4 % (0.0-0.4); Lymphocytes Absolute Auto 3.1 X10*3/uL (1.2-4.9); Lymphocytes Percent Auto 29.4 % (20-40); Mean Corpuscular HGB Conc 34.1 g/dl (31.0-35.0); Mean Corpuscular Hemoglobin 32.2 pg (27.0-33.0); Mean Corpuscular Volume 94.2 fL (80.0-98.0); Mean Platelet Volume 9.7 fL (9.4-12.3); Monocytes Absolute Auto 0.8 X10*3/uL (0.1-1.2); Monocytes Percent Auto 7.3 % (2-11); Neutrophils Absolute Auto 6.4 x10*3/uL (2.0-8.3); Neutrophils Percent Auto 59.8 % (45-73); Platelet Count 210 X10*3/uL (160-400); Red Blood Count 4.79 X10*6/uL (4.20-5.50); Red Cell Distribution Width 13.8 % (11.0-16.0); White Blood Count 10.6 X10*3/uL (4.8-10.8)
[2023-11-10 06:49] LABS: Blood Urea Nitrogen 12 mg/dL (9-16); Estimated Glomerular Filt Rate > 60
[2023-11-10] MEDS: 0.9 % Sodium Chloride 1,000 ML 100 ML IVCONT (07:13)
--- NOTE | 2023-11-10 10:02 | P.OP_ITS ---
Operative Note Operative Note Date of Service: 11/10/23 Narrative: Angiogram report from [facility] Preoperative diagnosis: Atherosclerosis of right lower extremity with activity limiting claudication Postoperative diagnosis: Same Procedure: 1. Ultrasound-guided left common femoral access 2. Aortogram with right lower extremity runoff 3. Right SFA plasty and stent Surgeon:Doron Nagy M.D., FACS, RPVI Box Machine Operator:None Anesthesia: Local with moderate conscious sedation. Total intraservice moderate sedation time was seventy-six minutes. I monitored the patient's level of consciousness and physiologic status continuously throughout the procedure. Specimens:none Drains:none Estimated blood loss: Less than 10 ml Implant: Medtronic Ev 3 stent 5 x 120: Medtronic Impact DCB 5 x 120 Indications: Very pleasant 58-year-old female with a prior history of per ipheral vascular disease on surveillance follow-up was found to have increasing SFA disease. She now presents for endovascular intervention The patient has signed the informed consent after reviewing risks, complications, benefits, and alternatives previously discussed with the patient. The patient was given the opportunity to ask any additional questions or voice any concerns. All questions were answered to the patient's satisfaction. Procedure in detail: Patient was brought to the angiography suite prior to which a time-out was called for patient identification and site verification. Bilateral groins were prepped and draped in the standard surgical fashion. Under ultrasound guidance left common femoral was punctured with micro puncture needle and wire. Subsequently a precision 5 [place] sheath was then placed. Bentson wire was advanced to the level of the aorta. Multiple attempts had to be made at access due to the small nature of the vessels but we were able to eventually get access. 4 [place] Flush catheter was brought up and parked at the level of the renal arteries. Aortogram was then undertaken. Catheter was brought down to the level of the iliac bifurcation. Iliacs were subsequently imaged. Catheter was then brought in up and over to the right side SFA. Runoff study was then undertaken. At this time 8000 units of systemic heparin was administered. After 5 minutes of circulation time up and over 6 [place] sheath was then placed. We placed a Glidewire Advantage which we were able to easily traverse this high-grade mid SFA lesion. It was nearly 60-70% with disease throughout the vessel. We 1st plasty this area with a 5 x 60 balloon with multiple insufflations. We then brought in a 5 x 120 stent and placed this in the mid SFA. This was followed by a 5 x 120 drug coated balloon. This was brought into position in under 3 minutes and insufflated for a total of 3 minutes in duration. Once this was accomplished completion angiogram was then undertaken. Excellent result was achieved. Catheter wire sheath was brought back to the ipsilateral side. We then exchanged for short 6 [place] sheath. A CELT closure device was then placed. Adequate hemostasis was then achieved. Patient tolerated the procedure well and returned to recovery with stable vitals. Interpretation of films: 1. Ultrasound demonstrates appropriate femoral access site. Vessel was patent with minimal stenosis. Needle entry was visualized. Image of ultrasound was saved. 2. Aortogram demonstrates appropriate caliber aorta. Minimal disease. Appropriate take-off of the renals. 3. Iliac images demonstrate small in nature there is some mild disease at the bifurcation. There was no flow-limiting stenosis. 4. Right Leg Common femoral artery: No significant disease Profundus Femoris: No significant disease Superficial femoral artery: High-grade stenosis mid SFA. Popliteal artery (p1,p2,p3): Patent Anterior tibial artery: Patent and present all the way down to the level of the ankle Peroneal artery: Patent and is the main dominant runoff Posterior tibial artery: Occludes proximally Dorsalis pedis/plantar arch: Plantar arch is incomplete Conclusion: 1. Successful plasty and stent of right SFA. 2. Anticoagulation status: Patient will require 6 months of aspirin and Plavix. This note is constructed using voice recognition software. While every effort has been made to ensure accuracy, locum tenens hospitalist errors may have been included. Thank you for allowing me to participate in the care of your patient. Yours sincerely, Doron Nagy MD, FACS, R.P.V.I.
[2023-11-10] MEDS: Clopidogrel Bisulfate 300 MG TABLET PO (10:58)
== END 2023-11-10 11:55 | disposition home or self-care (01) ==
PROVIDERS: PCP Internal Medicine; Visit Provider Surgery Vascular Surgery
DX: I70.211 Atherosclerosis of native arteries of extremities with intermittent claudication, right leg (principal); M79.661 Pain in right lower leg; M79.89 Other specified soft tissue disorders; I83.11 Varicose veins of right lower extremity with inflammation; I48.91 Unspecified atrial fibrillation; M54.2 Cervicalgia; R73.01 Impaired fasting glucose; I65.23 Occlusion and stenosis of bilateral carotid arteries; E78.2 Mixed hyperlipidemia; E55.9 Vitamin D deficiency, unspecified; E66.9 Obesity, unspecified; Z68.33 Body mass index [BMI] 33.0-33.9, adult; Z79.82 Long term (current) use of aspirin; Z79.899 Other long term (current) drug therapy; Z98.890 Other specified postprocedural states; F17.210 Nicotine dependence, cigarettes, uncomplicated
CPT/HCPCS: 36415; 37226; 76937; 82565; 84520; 85025; 99152; 99153; A4364; C1725; C1760; C1769; C1876; C1887; C1894; C2623; J1644; J2250; J2310; J3010; Q9967

== ENCOUNTER → 2023-11-10 05:41 | Outpatient (BNV) | payer OTHER, SELFPAY | PROVIDERS: PCP Internal Medicine; Visit Provider Surgery Vascular Surgery | DX: I70.212 Atherosclerosis of native arteries of extremities with intermittent claudication, left leg (principal) | CPT/HCPCS: 37226; 75625; 75710; 76937; 99152 ==

== ENCOUNTER 2023-11-25 15:22 | Outpatient (AMB) | payer OTHER, SELFPAY ==
--- NOTE | 2023-11-25 15:38 | A.OFFVIS_ITS ---
Intake Visit Reasons: 2 week follow up right leg angio Intake Note: Patient presents for 2 week follow up right leg angio. Patient states she is still sore and both feet are swollen. Allergies No Known Allergies Allergy (Verified 11/25/23 15:40) HPI HPI 2 week follow up right leg angio: Details: Very pleasant 58-year-old female presents for follow-up status post right lower extremity endovascular intervention. She reports she did well from the procedure and she did appreciate some improvement. It has not been as well as in the past. She did notice significant right lower extremity swelling. She now presents for routine follow-up. Of note she is being maintained on aspirin and Plavix [facility] Medical History Ventricular bigeminy Esophageal dysmotility Achalasia of the cricopharyngeus muscle S/P angiogram of extremity (02/03/23) Neck pain with history of cervical spinal surgery A-fib Difficulty swallowing Vitamin D deficiency Impaired fasting glucose Mixed dyslipidemia Varicose veins of right lower extremity with inflammation Claudication Tobacco abuse Obesity due to excess calories Surgical History S/P ablation of atrial fibrillation Hx of colonoscopy Peripheral arterial occlusive disease Social History Housing: House Patient Tobacco Use Status: Current everyday Tobacco user Cigarette Packs Per Day: 0.5 Cigarettes Per Day: 10.0 e-Cigarette/Vaping Use: Never Used Second Hand Smoke Exposure: Yes service: No Current occupational status: employed Current occupational exposures/hazards: No Cognitive needs: No Hearing needs: No Vision needs: No Review of Systems Const All systems reviewed & are unremarkable except as noted in HPI and below Reports no additional complaints ENT Reports Normal hearing present Card Denies chest pain, Denies chest pain at rest, Denies chest pain with activity and Denies pedal edema Resp Denies cough GI Denies abdominal pain Musc Denies abnormal gait, Denies muscle cramps and Denies radiating pain into limb Skin/Breast Denies skin ulcer and Denies wounds Neuro Reports Normal hearing present and Denies abnormal gait Psych Reports no additional complaints Physical Exam Const General: cooperative, healthy appearing and comfortable Orientation/consciousness: oriented to person, oriented to place and oriented to time HEENT Head: Yes normal to inspection Neck Neck: Yes normal visual inspection Carotids: no bruits Chest Chest palpation & inspection: normal inspection of the chest Resp Effort & Inspection: normal respiratory effort and able to speak in complete sentences Auscultation: clear to auscultation bilaterally, no crackles, no rales, no rhonchi and no wheezes Cardio Other: Bilateral DP signals Rate: regular rate Rhythm: regular rhythm Heart sounds: S1 normal heart sound present and S2 normal heart sound present Bruits: no carotid bruits GI Inspection: Yes normal to inspection Skin Wounds: no wounds Hair: normal Neuro General: oriented to person, oriented to place and oriented to time Cranial nerves: Yes CN's II-XII intact bilaterally and Yes Normal hearing present Cognition (Neuro): normal cognition Motor exam (neuro): 5/5 motor strength present throughout Extrem Other: venous exam: +2 edema right General: No clubbing, No cyanosis and No edema Psych Appearance: grossly normal Mental Status: mental status grossly normal Speech and movement: Normal speech and movement present Assessment & Plan Assessment & Plan (1) Peripheral arterial occlusive disease: Comment: 03/11/2022 right external iliac plasty 02/03/2023 right SFA atherectomy and plasty 11/10/2023 - right SFA plasty and stent Code(s): I77.9 - Disorder of arteries and arterioles, unspecified Category: Surgical Plan: In short patient has stable claudication. I did review the pathophysiology of peripheral vascular disease with the patient. In addition we did discuss routine conservative measures including a healthy diet and the importance of exercise and ambulation. We did discuss risk factor modification. The patient will continue to to follow-up with surveillance follow-up in approximately 3 months. In addition for the swelling we did discuss use of light grade compression stockings Thank you for allowing us to participate in this patient's care. If there are any questions or concerns please do not hesitate to contact us. Please note a longitudinal relationship has been created with the patient and we have been following and surveillance this chronic condition. (2) Bilateral carotid artery stenosis: Code(s): I65.23 - Occlusion and stenosis of bilateral carotid arteries Category: Medical Plan: Did appreciate a carotid bruit. Will plan for carotid ultrasound. Orders: Orders US carotid duplex BI 3 Months I65.23 - Occlusion and stenosis of bilateral carotid arteries US arterial duplex LE BI 3 Months I73.9 - Peripheral vascular disease, unspecified Coding Level of Care Code Est Pt Level 4 (32108) Complex EM visit Add On [id number] Diagnoses Peripheral arterial occlusive disease I77.9 Bilateral carotid artery stenosis I65.23
== END 2023-11-25 16:05 | disposition home or self-care (01) ==
PROVIDERS: PCP Internal Medicine; Visit Provider Surgery Vascular Surgery
DX: I77.9 Disorder of arteries and arterioles, unspecified (principal); I65.23 Occlusion and stenosis of bilateral carotid arteries
CPT/HCPCS: 99214; G2211

== ENCOUNTER → 2023-11-25 15:22 | Outpatient (BNVA) | payer OTHER, SELFPAY | PROVIDERS: PCP Internal Medicine; Visit Provider Surgery Vascular Surgery ==

== ENCOUNTER → 2024-01-27 15:51 | Outpatient (BNVA) | payer OTHER, SELFPAY | PROVIDERS: PCP Internal Medicine; Visit Provider Internal Medicine | DX: I25.10 Atherosclerotic heart disease of native coronary artery without angina pectoris (principal); R73.01 Impaired fasting glucose; E78.2 Mixed hyperlipidemia; R42 Dizziness and giddiness; Z23 Encounter for immunization; R53.83 Other fatigue; G43.109 Migraine with aura, not intractable, without status migrainosus; K22.0 Achalasia of cardia; I77.9 Disorder of arteries and arterioles, unspecified; E66.09 Other obesity due to excess calories; G47.00 Insomnia, unspecified; Z79.82 Long term (current) use of aspirin; Z79.899 Other long term (current) drug therapy; Z72.0 Tobacco use; Z71.89 Other specified counseling | CPT/HCPCS: 90471; 90656; 96127 ==

== ENCOUNTER → 2024-01-27 15:51 | Outpatient (AMB) | payer OTHER, SELFPAY ==
[2024-01-27 16:36] VITALS: BP 100/72; PULSE 64; O2SAT 94; BMI 33.4
--- NOTE | 2024-01-27 16:36 | MHC.PC.OV ---
Vital Signs 01/27/24 16:36 Height 5 ft 6 in Weight 207 lb BMI 33.4 BP 100/72 Blood Pressure Location Lt brachial Position Sitting Pulse 64 Pulse Source Pulse Oximeter Pulse Oximetry (%) 94 Oxygen Delivery Method Room Air Intake Visit Reasons: Physical Intake Note: Pt is here today for her PE Allergies No Known Allergies Allergy (Verified 01/27/24 17:05) Medication List - Last Reconciled 01/27/24 by Maureen Solano MD amitriptyline 25 mg PO BEDTIME aspirin (Adult Aspirin Regimen) 81 mg PO DAILY clopidogrel (Plavix) 75 mg PO DAILY gabapentin 300 mg PO meclizine 25 mg PO QID omega-3 fatty acids 1,250 mg PO BID propranolol ER 120 mg PO DAILY rosuvastatin 10 mg PO DAILY Tobacco use date assessed: 01/27/24 Dental Screening Dental Screen Date: 01/27/24 Did you have a dental visit in the last 12 months?: Yes Did you have a dental problem in the last 6 months where you did not have access to dental care?: No Was dental information given to patient?: Patient has dentist HPI Physical HPI Details 58-year-old female past medical history of obesity, hyperlipidemia, impaired fasting glucose, peripheral vascular disease with claudication followed by Vascular surgery, had an abmormal stress test with cardiac catheterization done on 09/02/2023 showing left main normal, LAD <30% stenosis, left circumflex minimal irregularities, proximal RCA 100% LEVERMAN with [id number] collaterals, no significant disease elsewher currently aspirin 81 mg daily indefinitely, rosuvastatin with ideal LDL goal less than 70, propranolol to assist with heart rate control, here today for her Physical examination. Patient states that she has been feeling well except for fatigability, has difficulty sleeping at night, constantly thinking of things to do, denies any chest pain. She is up-to-date with her screening mammogram done earlier this year with benign findings. Up-to-date with her cervical cancer screening and pelvic exam done last year, and had a normal colonoscopy done by Dr. Russo in 2017 due for recheck colonoscopy in 2027. Continues to smoke cigarettes, unable to quit at present time, but has cut down to 10 cigarettes a day. HPI Comments History of Present Illness Details , [facility] Medical History (Updated 01/27/24 @ 17:39 by Maureen Solano MD) Not ready to quit smoking Migraine Ventricular bigeminy Esophageal dysmotility Achalasia of the cricopharyngeus muscle S/P angiogram of extremity (02/03/23) Neck pain with history of cervical spinal surgery A-fib Difficulty swallowing Vitamin D deficiency Impaired fasting glucose Mixed dyslipidemia Varicose veins of right lower extremity with inflammation Claudication Tobacco abuse Obesity due to excess calories Surgical History (Updated 01/27/24 @ 17:25 by Maureen Solano MD) S/P cardiac cath S/P ablation of atrial fibrillation Hx of colonoscopy Peripheral arterial occlusive disease Social History Housing: House Patient Tobacco Use Status: Current everyday Tobacco user Cigarette Packs Per Day: 0.5 Cigarettes Per Day: 10.0 e-Cigarette/Vaping Use: Never Used Second Hand Smoke Exposure: Yes service: No Current occupational status: employed Current occupational exposures/hazards: No Cognitive needs: No Hearing needs: No Vision needs: No Questionnaire PHQ-9 Over the last 2 weeks, how often have you been bothered by any of the following problems? 1. Little interest or pleasure in doing things: not at all 2. Feeling down, depressed, or hopeless: not at all 3. Trouble falling or staying asleep, or sleeping too much: more than half the days 4. Feeling tired or having little energy: more than half the days 5. Poor appetite or overeating: not at all 6. Feeling bad about yourself - or that you are a failure or have let yourself or your family down: not at all 7. Trouble concentrating on things, such as reading the newspaper or watching television: not at all 8. Moving or speaking so slowly that other people could have noticed. Or the opposite - being so fidgety or restless that you have been moving around a lot more than usual: not at all 9. Thoughts that you would be better off or of hurting yourself in some way: not at all Total score: 4 Depression Screening Interpretation: Negative Depression Screening Done: Yes 99133 - PHQ-9 Billing: Yes Source: Developed by Drs. Ozzie Brandon, Ely Prado, Twin Loaiza and colleagues, with an educational chetna from [employer]. Thrive Questionnaire Date Thrive assessed: 01/27/24 I am a: Patient What is your living situation today?: I have a steady place to live Within the past 12 months, did the food you bought not last and you didn't have the money to get more?: Never true Within the past 12 months, did you worry whether your food would run out before you got money to buy more?: Never true Do you have trouble paying for medicines?: No Do you have trouble getting transportation to medical appointments?: No Do you have trouble paying your heating and electricity bill?: No Do you have trouble taking care of your child, family member or friend?: No Do you have trouble with day-to-day activities such as bathing, preparing meals, shopping, managing finances, etc.?: No Are you currently unemployed and looking for a job?: No Are you interested in more education?: No Please select the resources that you would like help with: None Currently or been in a relationship where the following occur: No concerns reported THRIVE Score: 0 AUDIT C Alcohol Use Questionnaire (AUDIT-C) 1. How often do you have a drink containing alcohol?: Never 3. How often do you have six or more drinks on one occasion?: Never Total Score: 0 PURNIMA-7 AMB Questionnaire PURNIMA-7 Date PURNIMA - 7 assessed: 01/27/24 Feeling nervous, anxious, or on edge: 1 = Several days Not being able to stop or control worryin = Not at all Worrying too much about different things: 1 = Several days Trouble relaxin = Several days Being so restless that it is hard to sit still: 0 = Not at all Becoming easily annoyed or irritable: 1 = Several days Feeling afraid as if something awful might happen: 0 = Not at all Total PURNIMA-7 score (0-4 normal; 5-9 mild; 10-14 moderate; 15-21 severe): 4 Source: Developed by Drs. Ozzie Brandon, Ely Prado, Twin Loaiza and colleagues, with an educational chetna from [employer]. PURNIMA-7 Assessment Billing PURNIMA-7 Assessment Tool: PURNIMA-7 Assessment 06580 Review of Systems Const All systems reviewed & are unremarkable except as noted in HPI and below Reports difficulty sleeping Eyes Reports no additional complaints ENT Reports Normal hearing present and Denies dizziness Card Denies chest pain at rest, Denies chest pain with activity, Denies rapid heart rate, Denies leg edema, Denies lightheadedness, Denies palpitations, Denies dyspnea and Denies dyspnea on exertion Resp Denies cough, Denies dyspnea and Denies dyspnea on exertion GI Denies hematochezia and Denies change in stool character Reports no additional complaints Musc Denies abnormal gait, Denies limited range of motion, Denies muscle cramps, Denies muscle weakness, Denies numbness, Denies radiating pain into limb and Denies tingling Skin/Breast Denies breast pain, Denies breast mass, Denies lesions and Denies rash Neuro Reports Normal hearing present, Denies abnormal gait, Denies dizziness, Denies numbness and Denies tingling Psych Reports no additional complaints Endo Denies palpitations Clement/Lymph Reports no additional complaints Aller/Immun Reports no additional complaints Physical exam (Primary Care) Vital Signs: Last Vital Signs Pulse 64 01/27/24 16:36 BP 100/72 01/27/24 16:36 Pulse Ox 94 01/27/24 16:36 Oxygen Delivery Method Room Air 01/27/24 16:36 BMI result Body Mass Index 33.4 BMI Assessment/Plan discussion: High BMI High, discussed plan: lifestyle, weight reduction, dietary and physical activity Tobacco/Smoking Status: Tobacco use Status Tobacco use date assessed 01/27/24 01/27/24 16:38 Patient Tobacco Use Status Current everyday Tobacco 01/27/24 16:38 e-Cigarette/Vaping Use Never Used 01/27/24 16:38 Are you ready to quit: No Tobacco cessation counseling provided: Yes PHQ-9: PHQ-9 Score PHQ-9: Total score 4 01/29/24 06:26 Depression Screening Interpretation: Negative Thrive Assessment: Date of Thrive Assessment Date Thrive assessed 01/27/24 01/27/24 16:38 Currently or been in a relationship where the following occur: No concerns reported Advance Care Planning discussion: Completed/Scanned Date of discussion: 01/27/24 Who was present: Patient Forms completed: Health Care Proxy Time spent: 16-45 minutes Actual minutes spent: 16 Const General: comfortable and no acute distress Nutritional Appearance: obese Orientation/consciousness: patient oriented x3 HENMT Ears: hearing grossly normal bilaterally, external ears normal, TM's normal bilaterally and EAC's normal General nose exam: Normal external nose present and No nasal discharge present Face and sinus: Yes face symmetric Mouth: Normal oral and palatal mucosa present, oropharynx normal and moist mucous membranes Eyes General: appearance normal, both eyes and all related structures Neck Neck: Yes full ROM, Yes no lymphadenopathy and Yes supple Chest Breast/axilla palpation: normal palpation of the breasts Resp Effort & Inspection: normal respiratory effort and able to speak in complete sentences Auscultation: clear to auscultation bilaterally Cardio Other: Faint dorsalis pedis pulses and posterior tibial pulses palpated Rate: regular rate Rhythm: regular rhythm Heart sounds: S1 normal heart sound present and S2 normal heart sound present Peripheral pulses: other (Decreased dorsalis pedis pulse ) GI Palpation (GI): Soft to palpation, nontender, no guarding and no masses Auscultation: normal bowel sounds General: Yes no CVA tenderness Back/Spine/Pelvis Back: no CVA tenderness Neuro General: patient oriented x3, gait normal, moves all extremities, no focal motor deficits and CN's II-XI intact bilaterally Cranial nerves: Yes Normal hearing present Cognition (Neuro): normal cognition Extrem General: Yes full ROM, Yes no clubbing, cyanosis or edema, Yes no calf tenderness and Yes normal gait Psych Appearance: grossly normal and well kempt Mental Status: mental status grossly normal Speech and movement: Normal speech and movement present Affect: normal affect Attitude: cooperative Office Procedures Flu Questionnaire Does the patient have a severe egg allergy?: No Does the patient have severe life threatening allergies?: No Does the patient have a fever or illness today?: No Has the patient ever had [place] Syndrome?: No Has the patient ever had any past reaction to a flu shot?: No Immunizations Fluarix Triv [id number] (PF) 45 mcg (15 mcg x 3)/0.5 mL IM syringe Performing Provider: Maureen Solano MD [place] [facility] [place] [facility] Administered by: Elizabeth Wall CMA on 01/27/24 16:45 Dose Route Admin Location Dispensed Lot Number Expiration Date [facility] Translational Specialist 0.5 mL IM Left Deltoid 0.5 mL [id number] 10/02/24 [id number] CEDU VIS Given Date VIS Provided VIS Publication Date 01/27/24 Single Vaccine 20 Eligibility Eligibility Date Funding Source [facility] Eligible 01/27/24 Private Coding Level of Care Code Est Pt Prev Care 40-64y(10821) Diagnoses Coronary artery disease involving [place] coronary artery of [place] heart without angina pectoris I25.10 Associated angina: without angina Coronary Disease-Associated Artery/Lesion type: [place] artery [place] vs. transplanted heart: [place] heart Impaired fasting glucose R73.01 Mixed dyslipidemia E78.2 Intermittent lightheadedness R42 Fatigue, unspecified type R53.83 Fatigue type: unspecified Migraine with aura and without status migrainosus, not intractable G43.109 Intractability: not intractable Migraine type: migraine (< 15 days per month) with aura Status migrainosus presence: without status migrainosus Not ready to quit smoking Z72.0 Achalasia of the cricopharyngeus muscle K22.0 Peripheral arterial occlusive disease I77.9 Obesity due to excess calories E66.09 Advanced directives, counseling/discussion Z71.89 Annual visit for general adult medical examination with abnormal findings Z00.01 Insomnia, unspecified type G47.00 Insomnia type: unspecified Additional Codes PURNIMA-7 Assessment Billing - PURNIMA-7 Assessment Tool: PURNIMA-7 Assessment 99312 ([id number]) Vital Signs *Quality* - Advance Care Planning discussion: Completed/Scanned ([id number]) Vital Signs *Quality* - Time spent: 16-45 minutes ([id number]) Assessment & Plan Assessment & Plan (1) CAD (coronary artery disease): Code(s): I25.10 - Atherosclerotic heart disease of [place] coronary artery without angina pectoris Category: Medical Qualifiers: Associated angina: without angina Coronary Disease-Associated Artery/Lesion type: [place] artery [place] vs. transplanted heart: [place] heart Qualified Code(s): I25.10 - Atherosclerotic heart disease of [place] coronary artery without angina pectoris Plan: Followed by cardiology, maintained on aspirin 81 mg daily indefinitely, rosuvastatin 10 mg daily, with ideal LDL goal less than 70, propranolol ER 120 mg daily to assist with heart rate control (2) Impaired fasting glucose: Code(s): R73.01 - Impaired fasting glucose Category: Medical Plan: Your previous fasting blood sugars were elevated above 100 mg/dL. Impaired glucose metabolism increases the risk for developing diabetes mellitus type 2, as well as heart attack and stroke later on. Lifestyle changes that promotes weight loss, healthy eating habits, and regular exercise are important, and can prevent the progression to diabetes (3) Mixed dyslipidemia: Code(s): E78.2 - Mixed hyperlipidemia Category: Medical Plan: Continue on rosuvastatin mg once a day in addition to [place] 3 fatty acid supplements twice a day (4) Intermittent lightheadedness: Code(s): R42 - Dizziness and giddiness Plan: Bilateral carotid ultrasound ordered by vascular surgery, will check CBC, TSH with reflex free T4 (5) Fatigue: Code(s): R53.83 - Other fatigue Qualifiers: Fatigue type: unspecified Qualified Code(s): R53.83 - Other fatigue Plan: Will check CBC and thyroid levels (6) Migraine: Code(s): G43.909 - Migraine, unspecified, not intractable, without status migrainosus Category: Medical Qualifiers: Intractability: not intractable Migraine type: migraine (< 15 days per month) with aura Status migrainosus presence: without status migrainosus Qualified Code(s): G43.109 - Migraine with aura, not intractable, without status migrainosus Plan: Patient is complaining of migraine headaches getting progressively worse and frequent, neurology referral ordered (7) Not ready to quit smoking: Code(s): Z72.0 - Tobacco use Category: Social Hx Plan: Patient strongly advised to stop smoking, as smoking damages blood vessels, degenerative of joints and spine, damage to lungs and heart., predisposes to developing certain cancers like lung, breast, bladder, colon. Recommended to try decreasing cigarette use by 1-2 cigarettes a day. Advised to monitor what triggers are for smoking so that this can be discussed on the next office visit. We can discuss different options to quit smoking when ready. (8) Achalasia of the cricopharyngeus muscle: Code(s): K22.0 - Achalasia of cardia Category: Medical Plan: Seen by GI clinic, was supposed to get upper endoscopy, however due to her currently being treated with Plavix , it was canceled. Discussed with patient the importance of chewing well and swallowing small bites. Avoid drinking fast. She was sent for modified barium swallow with speech therapy. Aspiration precautions discussed with patient. Currently on pantoprazole tablets every morning. Esophageal dysmotility could be due to underlying reflux so you will try PPI therapy. (9) Peripheral arterial occlusive disease: Comment: 03/11/2022 right external iliac plasty 02/03/2023 right SFA atherectomy and plasty 11/10/2023 - right SFA plasty and stent Code(s): I77.9 - Disorder of arteries and arterioles, unspecified Category: Surgical Plan: followed by Vascular surgery. discussed routine conservative measures including a healthy diet and the importance of exercise and ambulation, smoking cessation . continue to to follow-up with surveillance follow-up in approximately 3 months. In addition for the swelling we did discuss use of light grade compression stockings (10) Obesity due to excess calories: Code(s): E66.09 - Other obesity due to excess calories Category: Medical Plan: Recommended focusing on improving health instead of dieting. Mediterranean diet is a healthy diet that helps, limit food high in fat, sugar, and calories. Eat slowly, pay attention to portion sizes, plan your meals ahead of time, stay active. (11) Advanced directives, counseling/discussion: Code(s): Z71.89 - Other specified counseling Plan: Initiated the conversation about Advanced Directives. Advanced Directives help patients prepare for current and future decisions about their medical treatment and place of care. Discussed with patient that it is a process where a patients current condition and prognosis are reviewed, their wishes for information regarding their illness are elicited, and likely medical dilemmas are presented and options discussed. Healthcare proxy form completed today. The form can be amended as needed, reviewed yearly and make changes as needed (12) Annual visit for general adult medical examination with abnormal findings: Code(s): Z00.01 - Encounter for general adult medical examination with abnormal findings Plan: Will check appropriate labs. Recommended dental visit every 6 months and regular eye exams, at least every 2 years. Take adequate calcium in diet and vitamin-D 3 at 2000 IU per cap once a day, in addition to weight-bearing exercises to help maintain good muscle tone and weight control. Instructed to do self-breast exam, and continue with yearly mammogram, up-to-date. She is up-to-date with her cervical cancer screening, as well as her screening colonoscopy due again in 2027. flu vaccine given today (13) Insomnia: Code(s): G47.00 - Insomnia, unspecified Qualifiers: Insomnia type: unspecified Qualified Code(s): G47.00 - Insomnia, unspecified Plan: Trial eszopiclone 2 mg per tablet to take 1 tablet at bedtime as needed for difficulty sleeping Orders: Orders Aspartate Amino Transferase 01/28/24 E78.2 - Mixed hyperlipidemia, I25.10 - Atherosclerotic heart disease of [place] coronary artery without angina pectoris, I65.23 - Occlusion and stenosis of bilateral carotid arteries, R73.01 - Impaired fasting glucose Hemoglobin A1c 01/28/24 E78.2 - Mixed hyperlipidemia, I25.10 - Atherosclerotic heart disease of [place] coronary artery without angina pectoris, I65.23 - Occlusion and stenosis of bilateral carotid arteries, R73.01 - Impaired fasting glucose Complete Blood Count Auto Diff 01/28/24 R42 - Dizziness and giddiness, R53.83 - Other fatigue Influenza [id number] Immunization 01/27/24 Z23 - Encounter for immunization Lipid Panel 01/28/24 E78.2 - Mixed hyperlipidemia, I25.10 - Atherosclerotic heart disease of [place] coronary artery without angina pectoris, I65.23 - Occlusion and stenosis of bilateral carotid arteries, R73.01 - Impaired fasting glucose Vitamin D 25-OH Total 01/28/24 E78.2 - Mixed hyperlipidemia, I25.10 - Atherosclerotic heart disease of [place] coronary artery without angina pectoris, I65.23 - Occlusion and stenosis of bilateral carotid arteries, R73.01 - Impaired fasting glucose Basic Metabolic Panel Fasting 01/28/24 E78.2 - Mixed hyperlipidemia, I25.10 - Atherosclerotic heart disease of [place] coronary artery without angina pectoris, I65.23 - Occlusion and stenosis of bilateral carotid arteries, R73.01 - Impaired fasting glucose Alanine Aminotransferase 01/28/24 E78.2 - Mixed hyperlipidemia, I25.10 - Atherosclerotic heart disease of [place] coronary artery without angina pectoris, I65.23 - Occlusion and stenosis of bilateral carotid arteries, R73.01 - Impaired fasting glucose TSH reflex Free T4 01/28/24 R42 - Dizziness and giddiness, R53.83 - Other fatigue Referrals Neurology Referral G43.909 - Migraine, unspecified, not intractable, without status migrainosus Medications: New eszopiclone 2 mg PO BEDTIME PRN 30 tabs 0RF insomnia
== END ==
PROVIDERS: PCP Internal Medicine; Visit Provider Internal Medicine
DX: I25.10 Atherosclerotic heart disease of native coronary artery without angina pectoris (principal); R73.01 Impaired fasting glucose; E78.2 Mixed hyperlipidemia; R42 Dizziness and giddiness; R53.83 Other fatigue; G43.109 Migraine with aura, not intractable, without status migrainosus; Z72.0 Tobacco use; K22.0 Achalasia of cardia; I77.9 Disorder of arteries and arterioles, unspecified; E66.09 Other obesity due to excess calories; Z71.89 Other specified counseling; Z00.01 Encounter for general adult medical examination with abnormal findings; G47.00 Insomnia, unspecified

== ENCOUNTER 2024-01-28 07:45 | Outpatient (REF) | payer OTHER, SELFPAY ==
[2024-01-28 10:07] LABS: MANUAL DIFF FLAG NO
[2024-01-28 10:09] LABS: Basophils Absolute Auto 0.1 X10*3/uL (0.0-0.2); Basophils Percent Auto 0.5 % (0-2); Eosinophils Absolute Auto 0.4 X10*3/uL (0.0-0.4); Eosinophils Percent Auto 3.2 % (0-4); Hematocrit 45.2 % (37.0-47.0); Hemoglobin 14.9 g/dl (12.0-16.0); Imm Gran Abs Auto 0.04 X10*3/uL (0.00-0.03); Imm Gran Pct Auto 0.3 % (0.0-0.4); Lymphocytes Absolute Auto 3.7 X10*3/uL (1.2-4.9); Lymphocytes Percent Auto 32.3 % (20-40); Mean Corpuscular Hemoglobin 31.4 pg (27.0-33.0); Mean Corpuscular Volume 95.2 fL (80.0-98.0); Mean Platelet Volume 10.1 fL (9.4-12.3); Monocytes Absolute Auto 0.8 X10*3/uL (0.1-1.2); Monocytes Percent Auto 6.9 % (2-11); Neutrophils Absolute Auto 6.6 x10*3/uL (2.0-8.3); Neutrophils Percent Auto 56.8 % (45-73); Platelet Count 238 X10*3/uL (160-400); Red Blood Count 4.75 X10*6/uL (4.20-5.50); Red Cell Distribution Width 14.2 % (11.0-16.0); White Blood Count 11.6 X10*3/uL (4.8-10.8)
[2024-01-28 10:23] LABS: Estimated Average Glucose 128 mg/dL; Hemoglobin A1C 160.8332 umol/L; Hemoglobin A1c % 6.1 % (<6.0); Total Hemoglobin (HGBA1C) 3725.7632 umol/L
[2024-01-28 10:38] LABS: Alanine Aminotransferase 18 U/L (0-31); Anion Gap 10 (12-20); Aspartate Amino Transferase 25 U/L (5-31); Blood Urea Nitrogen 12 mg/dL (9-16); Calcium 9.6 mg/dL (8.4-10.2); Carbon Dioxide 27 mmol/L (22-29); Chloride 107 mmol/L (96-108); Cholesterol 133 mg/dL (<200); Estimated Glomerular Filt Rate > 60; Glucose Fasting 109 mg/dL (60-99); HDL Cholesterol 34 mg/dL (>40); LDL Cholesterol Calculated 56 mg/dL (<100); Potassium 4.2 mmol/L (3.3-5.1); Sodium 140 mmol/L (135-145); Triglycerides 216 mg/dL (<150)
[2024-01-28 10:56] LABS: TSH reflex Free T4 1.74 uIU/mL (0.32-4.0); Vitamin D 25-OH Total 30.6 ng/mL (>30)
== END 2024-01-28 07:46 | disposition home or self-care (01) ==
LOC: HO.HMGCLDS 07:45
PROVIDERS: PCP Internal Medicine; Visit Provider Internal Medicine
DX: I65.23 Occlusion and stenosis of bilateral carotid arteries (principal); I25.10 Atherosclerotic heart disease of native coronary artery without angina pectoris; R73.01 Impaired fasting glucose; E78.2 Mixed hyperlipidemia; R53.83 Other fatigue; R42 Dizziness and giddiness
CPT/HCPCS: 36415; 80048; 80061; 82306; 83036; 84443; 84450; 84460; 85025

== ENCOUNTER 2024-02-15 13:10 | Outpatient (REF) | payer OTHER, SELFPAY ==
--- NOTE | ~2024-02-15 | US_ITS ---
EXAMINATION: Noninvasive assessment of the bilateral lower extremities with ARTERIAL DUPLEX and ANKLE BRACHIAL INDICES (ABIs). CLINICAL INFORMATION: Peripheral vascular disease TECHNIQUE: Duplex Doppler techniques with waveform analysis and measurement of velocities in the bilateral common femoral, profunda femoris, superficial femoral, popliteal and tibial arteries were performed. Additionally, ankle pulse volume recordings, ankle pressure measurements and ankle brachial indices were obtained of the lower extremity arterial system bilaterally. The study was performed only at rest. COMPARISON: 05/10/2023 and 10/20/2023 FINDINGS: DIRECT DUPLEX DOPPLER FINDINGS: RIGHT LEG: Common femoral artery: 232, phasicity: Biphasic. Calcified plaque Profunda femoris artery: 105, phasicity: Biphasic Superficial femoral artery (proximal): 157, phasicity: Biphasic Stent extending from the proximal to the mid superficial femoral artery: Proximal stent: 130 cm/s, biphasic Mid stent: 57.6 cm/s, biphasic Distal stent: 64.5 cm/s, biphasic Superficial femoral artery (mid): 57.6, phasicity: Triphasic Superficial femoral artery (distal): 86.6 cm/s, phasicity: Triphasic Popliteal artery: 75.8 cm/s, phasicity: Biphasic Posterior tibial artery: 19.4 cm/s, phasicity: Monophasic Peroneal artery: 57.2 cm/s, phasicity: Biphasic Anterior tibial artery: 51.5 cm/s, phasicity: Monophasic Dorsalis pedis artery: 53.6 cm/s, phasicity:Monophasic LEFT LEG: Common femoral artery: 206 cm/s, phasicity: Biphasic Profunda femoris artery: 247 cm/s, phasicity: Monophasic Superficial femoral artery (proximal): 66.9 cm/s, phasicity: Monophasic Superficial femoral artery (mid): Occluded Superficial femoral artery (distal): 15.8 cm/s, phasicity: Monophasic Popliteal artery: 40.3 cm/s, phasicity: Monophasic Posterior tibial artery: 14.8 cm/s, phasicity: Monophasic Peroneal artery: 32.9 cm/s, phasicity: Monophasic Anterior tibial artery: 25.2 cm/s, phasicity: Monophasic Dorsalis pedis artery: 20 cm/s, phasicity: Monophasic ANKLE-BRACHIAL INDEX: Right: 0.8, previously 0.66 Left: 0.59, previously 0.59 ANKLE PRESSURES: Right: PT 91, DP 115 Left: PT 85, DP 81 ANKLE PVR WAVEFORMS: Right: Abnormal Left: Abnormal
--- NOTE | ~2024-02-15 | US_ITS ---
EXAMINATION: US EXTRACRANIAL CAROTID DUPLEX, BILATERAL CLINICAL INFORMATION: Carotid stenoses. COMPARISON: None available. TECHNIQUE: Real-time ultrasound and Doppler techniques (integrating B-mode 2-D vascular images, Doppler spectral analysis and color-flow Doppler imaging) were utilized to interrogate the extracranial carotid arteries, the vertebral arteries and proximal subclavian arteries bilaterally. The degree of stenosis is determined by criteria similar to NASCET. FINDINGS: RIGHT SIDE: 1. There is mild atherosclerotic plaque seen in the bifurcation/proximal ICA region. 2. The common carotid artery PSV proximally is 91 cm/s and distally 75 cm/s. 3. The proximal internal carotid artery velocities are 208 cm/s systolic and 78 cm/s diastolic. 4. The proximal external carotid artery PSV is 142 cm/s. 5. The vertebral artery shows antegrade flow. 6. The subclavian artery waveforms are normal. LEFT SIDE: 1. There is mild atherosclerotic plaque seen in the bifurcation/proximal ICA region. 2. The common carotid artery PSV proximally is 105 cm/s and distally 90 cm/s. 3. The proximal internal carotid artery velocities are 289 cm/s systolic and 87 cm/s diastolic. 4. The proximal external carotid artery PSV is 142 cm/s. 5. The vertebral artery shows retrograde flow. 6. The subclavian artery waveforms are blunted with decreased velocity compared with the right. US/US carotid duplex BI IMPRESSION: 1. RIGHT: Moderate, hemodynamically significant stenosis of the proximal right internal carotid artery corresponding to a 50-79% stenosis by velocity criteria. 2. LEFT: Moderate, hemodynamically significant stenosis of the proximal left internal carotid artery corresponding to a 50-79% stenosis by velocity criteria. There is retrograde flow in the vertebral artery consistent with a left subclavian stenosis. Electronically signed by: Aravind Sheffield MD 02/24/2024 02:53 PM [facility]
--- NOTE | ~2024-02-15 | US_ITS ---
EXAMINATION: Noninvasive assessment of the bilateral lower extremities with ARTERIAL DUPLEX and ANKLE BRACHIAL INDICES (ABIs). CLINICAL INFORMATION: Peripheral vascular disease TECHNIQUE: Duplex Doppler techniques with waveform analysis and measurement of velocities in the bilateral common femoral, profunda femoris, superficial femoral, popliteal and tibial arteries were performed. Additionally, ankle pulse volume recordings, ankle pressure measurements and ankle brachial indices were obtained of the lower extremity arterial system bilaterally. The study was performed only at rest. COMPARISON: 05/10/2023 and 10/20/2023 FINDINGS: DIRECT DUPLEX DOPPLER FINDINGS: RIGHT LEG: Common femoral artery: 232, phasicity: Biphasic. Calcified plaque Profunda femoris artery: 105, phasicity: Biphasic Superficial femoral artery (proximal): 157, phasicity: Biphasic Stent extending from the proximal to the mid superficial femoral artery: Proximal stent: 130 cm/s, biphasic Mid stent: 57.6 cm/s, biphasic Distal stent: 64.5 cm/s, biphasic Superficial femoral artery (mid): 57.6, phasicity: Triphasic Superficial femoral artery (distal): 86.6 cm/s, phasicity: Triphasic Popliteal artery: 75.8 cm/s, phasicity: Biphasic Posterior tibial artery: 19.4 cm/s, phasicity: Monophasic Peroneal artery: 57.2 cm/s, phasicity: Biphasic Anterior tibial artery: 51.5 cm/s, phasicity: Monophasic Dorsalis pedis artery: 53.6 cm/s, phasicity:Monophasic LEFT LEG: Common femoral artery: 206 cm/s, phasicity: Biphasic Profunda femoris artery: 247 cm/s, phasicity: Monophasic Superficial femoral artery (proximal): 66.9 cm/s, phasicity: Monophasic Superficial femoral artery (mid): Occluded Superficial femoral artery (distal): 15.8 cm/s, phasicity: Monophasic Popliteal artery: 40.3 cm/s, phasicity: Monophasic Posterior tibial artery: 14.8 cm/s, phasicity: Monophasic Peroneal artery: 32.9 cm/s, phasicity: Monophasic Anterior tibial artery: 25.2 cm/s, phasicity: Monophasic Dorsalis pedis artery: 20 cm/s, phasicity: Monophasic ANKLE-BRACHIAL INDEX: Right: 0.8, previously 0.66 Left: 0.59, previously 0.59 ANKLE PRESSURES: Right: PT 91, DP 115 Left: PT 85, DP 81 ANKLE PVR WAVEFORMS: Right: Abnormal Left: Abnormal US/US arterial duplex LE BI IMPRESSION: RIGHT LEG: Improved ankle-brachial index. Patent stent in the superficial femoral artery. No significant stenosis. Patent runoff vessels with monophasic waveforms in the posterior tibial and anterior tibial arteries. LEFT LEG: Stable ankle-brachial index. Chronic occlusion of the mid superficial femoral artery with reconstitution of the distal superficial femoral artery with monophasic waveforms in the popliteal artery and runoff vessels. Electronically signed by: Rolando Sands MD 02/25/2024 10:06 AM [facility]
== END 2024-02-15 13:11 | disposition home or self-care (01) ==
LOC: HO.US 13:10
PROVIDERS: PCP Internal Medicine; Visit Provider Surgery Vascular Surgery
DX: I73.9 Peripheral vascular disease, unspecified (principal); I65.23 Occlusion and stenosis of bilateral carotid arteries
CPT/HCPCS: 93880; 93923; 93925

== ENCOUNTER → 2024-02-22 14:05 | Outpatient (REF) | payer OTHER, SELFPAY ==
--- NOTE | 2024-02-22 14:13 | HM_ITS ---
* Total monitoring time 3 days. * Underlying rhythm is sinus with an average rate of 71/Min. * Rare supraventricular ectopy. * Rare ventricular ectopy with a burden of 0.5%. * No significant pauses or high-grade AV blocks. * No patient markers or diary events. MTDD
--- NOTE | 2024-02-22 14:13 | CA_ITS ---
Transthoracic Echocardiogram Patient (Last, First, Middle): Britt Jamison Anne Gender: Female Date of : 1965 Age: 58 Procedure Date: 02/22/2024 Procedure Type: Transthoracic Echocardiogram Location: OP Height: 167.64 cm Weight: 92.99 kg BSA: 2.02 m2 Heart Rate: bpm BP: 106 / 72 mmHg Websphere Commerce Developer: JOSEPH Referring MD: Janessa Mayes PULMONARY FUNCTION TECHNOLOGIST-Caterina Mechanical Maintenance: Kev Nova MD Symptoms: I25.10 - Atherosclerotic heart disease of [place] coronary artery without... Study Quality: Fair, contrast ECG Rhythm: Sinus Conclusions: - Essentially normal study with atherosclerotic changes noted in the ascending aorta Findings Procedure Information Contrast agent, definity, is being given per protocol without apparent complications. Left Ventricle Normal left ventricular size, thickness, and systolic function. The visually estimated ejection fraction is between 60-65%. Spectral Doppler is indicative of a normal filling pattern. E/E prime ratio is between 8 and 15 consistent with indeterminate filling pressures. Right Ventricle Normal right ventricular cavity size and systolic function. Atria Both atria are normal in size. There is no evidence of interatrial shunt. Aortic Valve The aortic valve structure and function is likely normal. There is no aortic valve stenosis. There is no aortic valve regurgitation. Mitral Valve Normal mitral valve structure and function. There is trace mitral valve regurgitation. There is no mitral valve stenosis. Pulmonic Valve The pulmonic valve is likely normal. Tricuspid Valve Normal tricuspid valve structure. Tricuspid regurgitation envelope is inadequate for calculation of right ventricular systolic pressure. Normal right atrial pressure. Great Vessels All visible segments of the aorta are normal in size. The pulmonary artery was not well visualized. There is no dilatation of the ascending aorta measuring 3.00 cm. Moderate plaque is seen in the sino tubular ridge. Venous The inferior vena cava is normal in size and collapses greater than 50% with inspiration. Pericardium/Pleural There is no evidence of pericardial effusion. Prior Study Comparison No significant change compared to prior study dated: 07/30/2023. Measurements 2D Linear Measurements IVSd: 1.03 0.6-0.9/0.6-1.0 cm LVIDd: 5.21 3.9-5.3/4.2-5.9 cm LVIDd Index: 2.58 2.4-3.2/2.2-3.1 cm/m2 LVIDs: 3.40 2.0-3.6 cm LVPWd: 0.98 0.7-1.1 cm LA Diam: 3.60 2.7-3.8/3.0-4.0 cm LAIDs Index: 1.78 1.5-2.3 cm/m2 LV Mass: 244.51 67-162/88-224 g LV Mass Index: 121.04 43-95/49-115 g/m2 LVOT Diam: 2.00 3.0+(-)1.3 cm 2D Systolic Function EF 4C: 58.70 >55% EF 2C: 64.50 >55% EF BiP: 62.30 >55% Mitral Valve MV Pk E: 0.70 MV PK A: 0.57 MV Decel Time: 239.00 E/A: 1.20 E'Lateral: 6.89 E'Medial: 4.05 E/E' Med: 17.40 E/E' Lat: 10.20 PHT: 70.00 MVA PHT: 3.14 Decel [place]: 2.94 Aortic Valve AoV Pk Trevor: 1.18 AoV Mn Trevor: 0.82 AoV VTI: 0.28 AoV Pk Grad: 6.00 Aov Mn Grad: 3.00 DYLAN Cont.VTI: 2.35 LVOT LVOT Pk Trevor: 0.91 LVOT Mn Trevor: 0.58 LVOT VTI: 0.21 LVOT Pk Grad: 3.00 LVOT Mn Grad: 2.00 LVOT Diam: 2.00 LVOT Area: 3.14 Diastolic Function MV Pk E: 0.70 MV Pk A: 0.57 E/A: 1.20 E'Medial: 4.05 E/E' Med: 17.40 E' Laterial: 6.89 E/E' Lat: 10.20 Right Ventricle TAPSE (mm): 22.90 TVS' Trevor: 10.90 Tricuspid Valve RA Press: 3.00 Great Vessels Aorta Sinus of Valsalva: 2.99 2.0-3.[address] [place]: 2.30 1.7-3.4 cm Ao Asc: 3.00 2.1-3.4 cm Updated in Other Vendor System with Status of Final Kev Nova MD electronically signed on 02/23/2024 4:25:41 PM with status of Final
== END ==
LOC: HO.CARD 14:05
PROVIDERS: PCP Internal Medicine; Visit Provider Nurse Practitioner Family
DX: I25.10 Atherosclerotic heart disease of native coronary artery without angina pectoris (principal); I49.3 Ventricular premature depolarization
CPT/HCPCS: 93242; 93306; Q9957

== ENCOUNTER → 2024-02-22 14:13 | Outpatient (BNV) | payer OTHER, SELFPAY | PROVIDERS: PCP Internal Medicine; Visit Provider Internal Medicine Cardiovascular Disease | DX: I47.10 Supraventricular tachycardia, unspecified (principal) | CPT/HCPCS: 93244; 93306 ==

== ENCOUNTER 2024-02-24 15:29 | Outpatient (AMB) | payer OTHER, SELFPAY ==
[2024-02-24 15:30] VITALS: BMI 33.4
--- NOTE | 2024-02-24 15:30 | MHC.OFFVIS ---
Vital Signs 02/24/24 15:30 Height 5 ft 6 in Weight 207 lb BMI 33.4 Intake Visit Reasons: follow up s/p Arterial US 02/15/24 Intake Note: 3 mo follow up arterial US & carotid US 02/15/24 w/ Hx of Right Angios 03/11/22, 02/03/23, 11/10/23. Pt states cramping is still bad in the Right LE and Left LE is getting worse. Pt does state she has dizziness and double vision, which is new. Accompanied by: Self / Same As Patient Allergies No Known Allergies Allergy (Verified 02/24/24 15:35) HPI HPI follow up s/p Arterial US 02/15/24: Details: Very pleasant 58-year-old female presents for follow-up evaluation regarding peripheral vascular disease and carotid disease. She reports that she is walking fairly well. She can walk a block or 2 with no issues. She does occasionally complain of some left leg cramping but it seems to be not affecting her daily activities. In addition she has undergone carotid ultrasound. She is being maintained on aspirin and Plavix And a statin. She now presents for routine follow-up. of note she does continue to smoke. [facility] Medical History Not ready to quit smoking Migraine Ventricular bigeminy Esophageal dysmotility Achalasia of the cricopharyngeus muscle S/P angiogram of extremity (02/03/23) Neck pain with history of cervical spinal surgery A-fib Difficulty swallowing Vitamin D deficiency Impaired fasting glucose Mixed dyslipidemia Varicose veins of right lower extremity with inflammation Claudication Tobacco abuse Obesity due to excess calories Surgical History S/P cardiac cath S/P ablation of atrial fibrillation Hx of colonoscopy Peripheral arterial occlusive disease Social History Housing: House Patient Tobacco Use Status: Current everyday Tobacco user Cigarette Packs Per Day: 0.5 Cigarettes Per Day: 10.0 e-Cigarette/Vaping Use: Never Used Second Hand Smoke Exposure: Yes service: No Current occupational status: employed Current occupational exposures/hazards: No Cognitive needs: No Hearing needs: No Vision needs: No Review of Systems Const All systems reviewed & are unremarkable except as noted in HPI and below Reports no additional complaints ENT Reports Normal hearing present Card Denies chest pain, Denies chest pain at rest, Denies chest pain with activity and Denies pedal edema Resp Denies cough GI Denies abdominal pain Musc Denies abnormal gait, Denies muscle cramps and Denies radiating pain into limb Skin/Breast Denies skin ulcer and Denies wounds Neuro Reports Normal hearing present and Denies abnormal gait Psych Reports no additional complaints Physical Exam Vital Signs: BMI result Body Mass Index 33.4 Const General: cooperative, healthy appearing and comfortable Orientation/consciousness: oriented to person, oriented to place and oriented to time HEENT Head: Yes normal to inspection Neck Neck: Yes normal visual inspection Carotids: no bruits Chest Chest palpation & inspection: normal inspection of the chest Resp Effort & Inspection: normal respiratory effort and able to speak in complete sentences Auscultation: clear to auscultation bilaterally, no crackles, no rales, no rhonchi and no wheezes Cardio Other: bilateral DP signal Rate: regular rate Rhythm: regular rhythm Heart sounds: S1 normal heart sound present and S2 normal heart sound present Bruits: no carotid bruits Peripheral pulses: Peripheral pulses 2+ throughout GI Inspection: Yes normal to inspection Skin Wounds: no wounds Hair: normal Neuro General: oriented to person, oriented to place and oriented to time Cranial nerves: Yes CN's II-XII intact bilaterally and Yes Normal hearing present Cognition (Neuro): normal cognition Motor exam (neuro): 5/5 motor strength present throughout Extrem Other: venous exam: No significant superficial varicosities or spider telangiectasias, minimal edema General: No clubbing, No cyanosis and Yes edema Psych Appearance: grossly normal Mental Status: mental status grossly normal Speech and movement: Normal speech and movement present Results Reviewed Results Reviewed: noninvasive arterial testing dated 02/15/2024 demonstrates [place] on the right of 0.8 and on the left of 0.59. Carotid testing dated 02/15/2024 demonstrates bilateral 50-79% stenosis with a peak systolic on the right of 2-0 8 and on the left of 289. Written report and images were reviewed Assessment & Plan Assessment & Plan (1) Peripheral arterial occlusive disease: Comment: 03/11/2022 right external iliac plasty 02/03/2023 right SFA atherectomy and plasty 11/10/2023 - right SFA plasty and stent Code(s): I77.9 - Disorder of arteries and arterioles, unspecified Category: Surgical Plan: In short patient has stable claudication. I did review the pathophysiology of peripheral vascular disease with the patient. In addition we did discuss routine conservative measures including a healthy diet and the importance of exercise and ambulation. We did discuss risk factor modification. The patient will continue to to follow-up with surveillance follow-up in approximately 6 months. Thank you for allowing us to participate in this patient's care. If there are any questions or concerns please do not hesitate to contact us. (2) Bilateral carotid artery stenosis: Code(s): I65.23 - Occlusion and stenosis of bilateral carotid arteries Category: Medical Plan: In short patient has asymptomatic carotid disease. We have reviewed signs and symptoms of a stroke. We also discussed risk factor modification inclusive a healthy diet low in cholesterol. The patient will follow up with us with surveillance ultrasound of the carotids In 1 year. This will need to be scheduled with us on her follow-up. Should there be any changes or signs or symptoms of a stroke we will be happy to see them back sooner. Thank you for allowing us to participate in this patient's care. If there are any questions or concerns please do not hesitate to contact us. Orders: Orders US arterial duplex LE BI 6 Months I77.9 - Disorder of arteries and arterioles, unspecified Coding Level of Care Code Est Pt Level 4 (07943) Complex EM visit Add On G2211 Diagnoses Peripheral arterial occlusive disease I77.9 Bilateral carotid artery stenosis I65.23
== END 2024-02-24 15:53 | disposition home or self-care (01) ==
PROVIDERS: PCP Internal Medicine; Visit Provider Surgery Vascular Surgery
DX: I77.9 Disorder of arteries and arterioles, unspecified (principal); I65.23 Occlusion and stenosis of bilateral carotid arteries
CPT/HCPCS: 99214

== ENCOUNTER → 2024-02-24 15:29 | Outpatient (BNVA) | payer OTHER, SELFPAY | PROVIDERS: PCP Internal Medicine; Visit Provider Surgery Vascular Surgery ==

== ENCOUNTER 2024-03-21 14:49 | Outpatient (AMB) | payer OTHER, SELFPAY ==
--- NOTE | 2024-03-21 14:52 | MHC.OFFVIS ---
Vital Signs 03/21/24 14:53 Height 5 ft 6 in Weight 203 lb BMI 32.8 BP 118/60 Blood Pressure Location Lt brachial Position Sitting Pulse 68 Pulse Source Pulse Oximeter Intake Visit Reasons: 6m follow up Allergies No Known Allergies Allergy (Verified 02/24/24 15:35) Medication List - Last Reconciled 03/21/24 by Denton Cota MD aspirin (Adult Aspirin Regimen) 81 mg PO DAILY clopidogrel (Plavix) 75 mg PO DAILY eszopiclone 2 mg PO BEDTIME PRN meclizine 25 mg PO QID PRN nortriptyline 25 mg PO BEDTIME omega-3 fatty acids 1,250 mg PO BID propranolol ER 120 mg PO DAILY rosuvastatin 10 mg PO DAILY HPI Comments Details: Britt Wakefield returns for follow-up. Per patient, she underwent atrial fibrillation ablation around [address] Lazar -at [facility]. No issues in that regard. She does not take any anticoagulation as there are no recent issues. Otherwise, chronic smoker and she still smokes. She also has history of PVCs. In the last few months, she underwent comprehensive workup including echocardiogram, stress test followed by a diagnostic catheterization. 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 Medically managed. Overall, she states she feels fine. No specific concerns. No angina. [facility] Medical History Not ready to quit smoking Migraine Ventricular bigeminy Esophageal dysmotility Achalasia of the cricopharyngeus muscle S/P angiogram of extremity (02/03/23) Neck pain with history of cervical spinal surgery A-fib Difficulty swallowing Vitamin D deficiency Impaired fasting glucose Mixed dyslipidemia Varicose veins of right lower extremity with inflammation Claudication Tobacco abuse Obesity due to excess calories Surgical History S/P cardiac cath S/P ablation of atrial fibrillation Hx of colonoscopy Peripheral arterial occlusive disease Social History Housing: House Patient Tobacco Use Status: Current everyday Tobacco user Cigarette Packs Per Day: 0.5 Cigarettes Per Day: 10.0 e-Cigarette/Vaping Use: Never Used Second Hand Smoke Exposure: Yes service: No Current occupational status: employed Current occupational exposures/hazards: No Cognitive needs: No Hearing needs: No Vision needs: No Review of Systems Const Denies weakness ENT Denies dizziness Card Denies chest pain, Denies chest pain with activity, Denies syncope, Denies rapid heart rate, Denies pedal edema, Denies edema, Denies leg edema, Denies lightheadedness, Denies palpitations, Denies dyspnea, Denies dyspnea on exertion and Denies orthopnea Resp Denies cough, Denies dyspnea and Denies dyspnea on exertion GI Denies hematochezia and Denies change in stool character Musc Denies abnormal gait, Denies muscle cramps, Denies muscle weakness, Denies numbness, Denies radiating pain into limb and Denies tingling Neuro Denies abnormal gait, Denies dizziness, Denies syncope, Denies numbness, Denies tingling and Denies weakness Endo Denies palpitations Physical Exam Vital Signs: Last Vital Signs Pulse 68 03/21/24 14:53 BP 118/60 03/21/24 14:53 BMI result Body Mass Index 32.8 Const General: comfortable and no acute distress Orientation/consciousness: patient oriented x3 HEENT Other: Unremarkable Head: Yes normal to inspection Neck Neck: Yes normal visual inspection Chest Chest palpation & inspection: normal inspection of the chest Resp Auscultation: clear to auscultation bilaterally Cardio Palpation: normal PMI Heart sounds: S1 normal heart sound present, S2 normal heart sound present, no gallops, no murmurs and no rubs GI Palpation (GI): Soft to palpation Back/Spine/Pelvis Other: unremarkable Skin General skin exam: no rashes or lesions noted Neuro General: patient oriented x3 Extrem General: Yes normal to inspection Psych Mental Status: mental status grossly normal Assessment & Plan Assessment & Plan (1) Atherosclerotic cardiovascular disease: Code(s): I25.10 - Atherosclerotic heart disease of [place] coronary artery without angina pectoris Category: Medical Plan: Cardiac catheterization data reviewed from 08/22/2022. 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 Mild disease in the LAD. Minimal disease in the left circumflex. She remains on aspirin. Plavix is from vascular. Continue statins. (2) S/P ablation of atrial fibrillation: Code(s): Z98.890 - Other specified postprocedural states; Z86.79 - Personal history of other diseases of the circulatory system Category: Surgical Plan: No recent issues. (3) PVC (premature ventricular contraction): Code(s): I49.3 - Ventricular premature depolarization Category: Medical Plan: Variable burden on Holter. In the initial Holter, PVC burden was about 14%. In the follow-up Holter, only 0.5%. In the echocardiogram, preserved LVEF at 60-65%. No specific interventions. (4) Peripheral vascular disease: Code(s): I73.9 - Peripheral vascular disease, unspecified Category: Medical Plan: Follows up with vascular surgery. (5) Mixed dyslipidemia: Code(s): E78.2 - Mixed hyperlipidemia Category: Medical Plan: LDL levels were in the 170s. Most recently 56 mg mg/dL. Triglycerides are still on the higher side in the 200s. Continue statins. Also on omega-3. If able to lose weight, that would help. (6) Smoker: Code(s): F17.200 - Nicotine dependence, unspecified, uncomplicated Category: Social Hx Plan: Strongly advised to stop. Coding Level of Care Code Est Pt Level 4 (74302) Diagnoses Atherosclerotic cardiovascular disease I25.10 S/P ablation of atrial fibrillation Z98.890; Z86.79 PVC (premature ventricular contraction) I49.3 Peripheral vascular disease I73.9 Mixed dyslipidemia E78.2 Smoker F17.200
[2024-03-21 14:53] VITALS: BP 118/60; PULSE 68; BMI 32.8
== END 2024-03-21 15:07 | disposition home or self-care (01) ==
PROVIDERS: PCP Internal Medicine; Visit Provider Internal Medicine
DX: I25.10 Atherosclerotic heart disease of native coronary artery without angina pectoris (principal); Z98.890 Other specified postprocedural states; Z86.79 Personal history of other diseases of the circulatory system; I49.3 Ventricular premature depolarization; I73.9 Peripheral vascular disease, unspecified; E78.2 Mixed hyperlipidemia; F17.200 Nicotine dependence, unspecified, uncomplicated
CPT/HCPCS: 99214

== ENCOUNTER → 2024-03-21 14:49 | Outpatient (BNVA) | payer OTHER, SELFPAY | PROVIDERS: PCP Internal Medicine; Visit Provider Internal Medicine ==

== ENCOUNTER 2024-06-20 10:39 | Outpatient (AMB) | payer OTHER, SELFPAY ==
[2024-06-20 10:39] VITALS: BP 110/66; PULSE 80; TEMP 36.8; O2SAT 97; BMI 34.1
--- NOTE | 2024-06-20 10:39 | MHC.OFFWIV ---
Intake Vital Signs 06/20/24 10:39 Height 5 ft 6 in Weight 211 lb 4 oz BMI 34.1 BP 110/66 Blood Pressure Location Lt brachial Position Sitting Pulse 80 Pulse Source Pulse Oximeter Temp 98.2 F Temp Source Oral Pulse Oximetry (%) 97 Oxygen Delivery Method Room Air Intake Visit Reasons: EP sore throat, cough, congestion Intake Note: Pt presents to the office today for c/o a sore throat, cough and congestion x2 days Patient Tobacco Use Status: Current everyday Tobacco user Allergies No Known Allergies Allergy (Verified 06/20/24 10:39) HPI HPI Comments History of Present Illness Details This is a 59-year-old female with a past medical history of hyperlipidemia and migraine headaches presenting for evaluation of a sore throat, cough and wheezing that she has had since yesterday. Patient has not been taking any medication for treatment of her symptoms and denies having any fevers, chills, otalgia, headache, chest pain or shortness for breath. [facility] Medical History Not ready to quit smoking Migraine Ventricular bigeminy Esophageal dysmotility Achalasia of the cricopharyngeus muscle S/P angiogram of extremity (02/03/23) Neck pain with history of cervical spinal surgery A-fib Difficulty swallowing Vitamin D deficiency Impaired fasting glucose Mixed dyslipidemia Varicose veins of right lower extremity with inflammation Claudication Tobacco abuse Obesity due to excess calories Surgical History S/P cardiac cath S/P ablation of atrial fibrillation Hx of colonoscopy Peripheral arterial occlusive disease Social History Housing: House Patient Tobacco Use Status: Current everyday Tobacco user Cigarette Packs Per Day: 0.5 Cigarettes Per Day: 10.0 e-Cigarette/Vaping Use: Never Used Second Hand Smoke Exposure: Yes service: No Current occupational status: employed Current occupational exposures/hazards: No Cognitive needs: No Hearing needs: No Vision needs: No Review of Systems Const All systems reviewed & are unremarkable except as noted in HPI and below Eyes Reports no additional complaints ENT Reports no additional complaints, Denies otalgia, Denies nasal discharge, Denies sinus pain, Denies sinus pressure, Reports sore throat and Denies throat swelling Card Denies dyspnea Resp Reports no additional complaints, Reports cough and Denies dyspnea GI Reports no additional complaints Reports no additional complaints Skin/Breast Reports system reviewed and no additional complaints, except as documented Neuro Reports no additional complaints Psych Reports no additional complaints Endo Reports no additional complaints Clement/Lymph Reports no additional complaints Aller/Immun Reports no additional complaints and Denies throat swelling Physical Exam Vital Signs: Last Vital Signs Temp 98.2 F 06/20/24 10:39 Pulse 80 06/20/24 10:39 BP 110/66 06/20/24 10:39 Pulse Ox 97 06/20/24 10:39 Oxygen Delivery Method Room Air 06/20/24 10:39 BMI result Body Mass Index 34.1 Const General: cooperative, healthy appearing, comfortable, no acute distress, well developed, alert, awake and Physically active; No acute distress Nutritional Appearance: overweight Orientation/consciousness: patient oriented x3 Limitations: no limitations HEENT Head: Yes normal to inspection Ears: hearing grossly normal bilaterally, external ears normal, TM normal on the right, left TM abnormal (TM erythematous, no fluid level, minimal bulging of TM) and EAC's normal General nose exam: Normal external nose present Face and sinus: Yes normal facial exam and Yes sinuses nontender Mouth: Normal oral and palatal mucosa present, tongue normal and moist mucous membranes Throat: Yes posterior oropharynx normal (There is no edema, exudates or erythema of the posterior oropharynx) and Yes postnasal drainage Eyes General: appearance normal, both eyes and all related structures Visual Benavides: normal visual benavides by confrontation Pupils: Equal, round and reactive pupils present EOM: EOMs intact bilaterally Neck Lymphatic: no lymphadenopathy noted Resp Effort & Inspection: normal respiratory effort Auscultation: clear to auscultation bilaterally Cardio Rate: regular rate Rhythm: regular rhythm Skin General skin exam: no rashes or lesions noted Neuro General: patient oriented x3 Cranial nerves: Yes Equal, round and reactive pupils present Psych Appearance: grossly normal Mental Status: mental status grossly normal Insight: Good insight present (Psych) Judgement: Good judgement present (Psych) Results AMB Rapid Strep AMB Rapid Strep Negative Last Edit by Emerald Simons CMA on 06/20/24 10:52 Results Reviewed Results Reviewed: Laboratory Last Values Strep Scn Rapid Clinic Negative 06/20/24 10:51 Assessment & Plan Assessment & Plan (1) Otitis media of left ear: Code(s): H66.92 - Otitis media, unspecified, left ear Qualifiers: Otitis media type: unspecified Qualified Code(s): H66.92 - Otitis media, unspecified, left ear Plan: Amoxicillin 500 mg t.i.d. x7 days. (2) Pharyngitis: Comment: Rapid strep test is negative. Code(s): J02.9 - Acute pharyngitis, unspecified Qualifiers: Pharyngitis/tonsillitis etiology: unspecified etiology Qualified Code(s): J02.9 - Acute pharyngitis, unspecified Plan: Ibuprofen or Tylenol as needed for discomfort, increase clear fluids daily. Orders: Orders AMB Rapid Strep Screen Today Blanca Sarkar PA-C Z13.9 - Encounter for screening, unspecified Medications: New amoxicillin 500 mg PO TID 21 caps 0RF Kori Mac PA-C Coding Level of Care Code Est Pt Level 3 (50648) Diagnoses Left otitis media, unspecified otitis media type H66.92 Otitis media type: unspecified Pharyngitis, unspecified etiology J02.9 Pharyngitis/tonsillitis etiology: unspecified etiology Time Spent (min) 20
--- OUTSIDE RECORDS SUMMARY | 2024-06-20 12:36 | XMS_ITS | Encounter Summary ---
Author Organization [facility] and [facility] Address [address] [place] [phone] Care Team Providers Care Feed In Worker Name Role Phone Unavailable Primary Care Provider Unavailabl e Encounter Details Date Type Department Care Team (Late st Contact Info) Description 04/23/2012 Abstract [facility] Health Information Management [address] [place] [address] [phone] Center, Primary Care [address] [place] [phone] Social History Tobacco Use Types Packs/Day Years Used Date Smoking Tobacco: Never Assessed Comments Unknown Sex and Gender Information Value Date Recorded Sex Assigned at Not on file Legal Sex Female 6:41 AM EST Gender Identity Not on file Sexual Orientation Not on file documented as of this encounter Last Filed Vital Signs Vital Sign Reading Time Taken Comments Blood Pressure - - Pulse - - Temperature - - Respiratory Rate - - Oxygen Saturation - - Inhaled Oxygen Concentration - - Weight 81.9 kg (180 lb 8.9 oz) 05/21/2010 12:01 AM EST Height - - Body Mass Index - - documented in this encounter Plan of Treatment Not on file documented as of this encounter Visit Diagnoses Not on filedocumented in this encounter
--- OUTSIDE RECORDS SUMMARY | 2024-06-20 12:36 | XMS_ITS | Clinical Summary ---
Author Organization [facility] Address [address] [place] [phone] Care Team Providers Care Research Soil Scientist Name Role Phone Unavailable Primary Care Provider Unavailabl e Social History Tobacco Use Types Packs/Day Years Used Date Smoking Tobacco: Never Assessed Comments Unknown Sex and Gender Information Value Date Recorded Sex Assigned at Not on file Legal Sex Female 6:41 AM EST Gender Identity Not on file Sexual Orientation Not on file Last Filed Vital Signs Vital Sign Reading Time Taken Comments Blood Pressure - - Pulse - - Temperature - - Respiratory Rate - - Oxygen Saturation - - Inhaled Oxygen Concentration - - Weight 81.9 kg (180 lb 8.9 oz) 05/21/2010 12:01 AM EST Height - - Body Mass Index - - Plan of Treatment Health Maintenance Due Date Last Done Comments HIV screening 1977 Hepatitis C screening 1982 Tetanus adult (Td q 10,TDAP once) 1984 Breast cancer screening 2004 Lipid disorder screening 2004 Colon cancer screening, Colonoscopy 2009 Diabetes screening 2009 Shingles vaccine (Shingrix) (1 of 2 - Shingrix (RZV) 2 Dose Standard Series) 2014 Influenza vaccine 11/04/2023 Covid-19 vaccine series (1 - 2023-25 season) 2023 Pneumococcal Vaccine (50+ ye ars) (1 of 1 - PCV) 2029 RSV Discussion (1 - 1-dose 7 5+ series) 06/15/2039 Meningococcal Vaccine Aged Out No deisi ramirez eligible based on patient's age to complete this topic Pneumococcal Vaccine (2 - 49 years) Aged Out No longer eligible based on patient's age to complete this topic
== END 2024-06-20 11:08 | disposition home or self-care (01) ==
PROVIDERS: PCP Internal Medicine; Visit Provider Physician Assistant
DX: H66.92 Otitis media, unspecified, left ear (principal); J02.9 Acute pharyngitis, unspecified; Z13.9 Encounter for screening, unspecified

== ENCOUNTER → 2024-06-20 10:39 | Outpatient (BNVA) | payer OTHER, SELFPAY | PROVIDERS: PCP Internal Medicine; Visit Provider Physician Assistant | DX: J02.9 Acute pharyngitis, unspecified (principal); H66.92 Otitis media, unspecified, left ear | CPT/HCPCS: 87880 ==

== ENCOUNTER 2024-06-23 12:52 | Outpatient (REF) | payer OTHER, SELFPAY ==
--- OUTSIDE RECORDS SUMMARY | 2024-06-23 15:17 | XMS_ITS | Clinical Summary ---
Author Organization [facility] Address [address] [place] [phone] Care Team Providers Care Barber Apprentice Name Role Phone Unavailable Primary Care Provider [...] (1 of 1 - PCV) 2029 RSV Immunization (1 - 1-dose 75+ series) 06/15/2039 Meningococcal Vaccine Aged Out No deisi ramirez eligible based on patient's age to complete this topic Pneumococcal Vaccine (2 - 49 years) Aged Out No longer eligible based on patient's age to complete this topic
--- OUTSIDE RECORDS SUMMARY | 2024-06-23 15:17 | XMS_ITS | Encounter Summary ---
Author Organization [facility] and [facility] Address [address] [place] [phone] Care Team Providers Care Architect Manager Name Role Phone Unavailable Primary Care Provider Unavailabl e Encounter Details Date Type Department Care Team (Late st Contact Info) Description 04/23/2012 Abstract [facility] Health Information Management [address] [place] [phone] Center, Primary Care [address] [place] [phone] Social History Tobacco Use Types Packs/Day Years [...]
== END 2024-06-23 12:53 | disposition home or self-care (01) ==
LOC: HO.MAMMO 12:52
PROVIDERS: PCP Internal Medicine; Visit Provider Internal Medicine
DX: Z12.31 Encounter for screening mammogram for malignant neoplasm of breast (principal)
CPT/HCPCS: 77063; 77067

== ENCOUNTER → 2024-06-23 13:00 | Outpatient (BNV) | payer OTHER, SELFPAY | PROVIDERS: PCP Internal Medicine; Visit Provider Internal Medicine | DX: Z12.31 Encounter for screening mammogram for malignant neoplasm of breast (principal) | CPT/HCPCS: 77063; 77067 ==

== ENCOUNTER 2024-07-19 13:40 | Outpatient (AMB) | payer OTHER, SELFPAY ==
--- NOTE | 2024-07-19 13:44 | MHC.OFFWIV ---
Intake Vital Signs 07/19/24 13:46 Weight 211 lb BP 122/80 Blood Pressure Location Rt brachial Position Sitting Pulse 68 Pulse Source Pulse Oximeter Temp 98 F Temp Source Oral Pulse Oximetry (%) 98 Oxygen Delivery Method Room Air Intake Visit Reasons: EP sore throat, congestion, loss of voice Intake Note: Patient here for cough, sore throat, congestion and loss of voice. Patient Tobacco Use Status: Current everyday Tobacco user Allergies No Known Allergies Allergy (Verified 06/20/24 10:39) HPI HPI Comments History of Present Illness Details History - The patient is a 59-year-old female presenting with exacerbation of cough and related symptoms. - The patient's cough began in early June, associating initially with diagnoses of sinus and ear infections, treated with amoxicillin. - Despite resolution of ear and throat symptoms, the cough has persisted and worsened over time. - There is an absence of fever, although shortness of breath occurs intermittently, worse with coughing. - The patient has a prior history of bronchitis; however, does not currently use an inhaler. - There is a longstanding smoking history of 40 years, current smoker. - No history of diagnosed asthma or COPD. Physical Exam General: Cooperative, healthy appearing, comfortable and no acute distress Orientation/consciousness: Patient oriented x3 Limitations: No limitations Head: Normal to inspection Ears: Hearing grossly normal bilaterally, external ears normal, TMs bilat with fluid, neither with infection noted. Nose: Normal external nose present, Normal nares present and No nasal discharge present Face and sinus: Normal facial exam and Yes sinuses nontender Mouth: Normal oral and palatal mucosa present and moist mucous membranes Throat: Yes tonsils normal, Yes uvula midline. Posterior oropharynx erythema Eyes: Appearance normal, both eyes and all related structures Neck: Normal visual inspection Respiratory: Clear to auscultation bilaterally. Normal respiratory effort, able to speak in complete sentences, Actively coughing, no respiratory distress, not tachypneic, no tripod positioning and no use of accessory muscles Cardiovascular: Regular rate and rhythm. Normal S1 and S2 Skin: No rashes or lesions noted Neuro: Patient oriented x3 Extremities: Normal to inspection and Yes no clubbing, cyanosis or edema [facility] Medical History Not ready to quit smoking Migraine Ventricular bigeminy Esophageal dysmotility Achalasia of the cricopharyngeus muscle S/P angiogram of extremity (02/03/23) Neck pain with history of cervical spinal surgery A-fib Difficulty swallowing Vitamin D deficiency Impaired fasting glucose Mixed dyslipidemia Varicose veins of right lower extremity with inflammation Claudication Tobacco abuse Obesity due to excess calories Surgical History S/P cardiac cath S/P ablation of atrial fibrillation Hx of colonoscopy Peripheral arterial occlusive disease Social History Housing: House Patient Tobacco Use Status: Current everyday Tobacco user Cigarette Packs Per Day: 0.5 Cigarettes Per Day: 10.0 e-Cigarette/Vaping Use: Never Used Second Hand Smoke Exposure: Yes service: No Current occupational status: employed Current occupational exposures/hazards: No Cognitive needs: No Hearing needs: No Vision needs: No Review of Systems Const All systems reviewed & are unremarkable except as noted in HPI and below Physical Exam Vital Signs: Last Vital Signs Temp 98 F 07/19/24 13:46 Pulse 68 07/19/24 13:46 BP 122/80 07/19/24 13:46 Pulse Ox 98 07/19/24 13:46 Oxygen Delivery Method Room Air 07/19/24 13:46 Results AMB Rapid Strep AMB Rapid Strep Negative Last Edit by YURY Calloway on 07/19/24 14:09 Assessment & Plan Assessment & Plan (1) Atypical pneumonia: Code(s): J18.9 - Pneumonia, unspecified organism Plan: VSS, pt well appearing and PE unremarkable, rapid strep in office is negative. A course of azithromycin is prescribed to target a potential bacterial respiratory infection, particularly given the chronic cough and smoking history. Additionally, cough suppression and decongestion measures are implemented to manage symptoms and aid in patient comfort. Instructions include monitoring symptom changes, especially difficulty breathing, and returning for further evaluation if deterioration is observed. The treatment approach considers that azithromycin may have limited effects if the etiology is viral, but should provide some relief due to its anti-inflammatory benefits. If no resolution with her cough, she should return for a chest x-ray. Patient was informed and verbally consented to the use of an ambient scribe for clinic note documentation during this visit Orders: Orders AMB Rapid Strep Screen Today Z13.9 - Encounter for screening, unspecified Medications: New benzonatate 200 mg PO BEDTIME PRN 10 caps 0RF cough azithromycin For 250 mg dose pack: take 500 mg today (day 1), then 250 mg for 4 days (days 2-5) PO 6 tabs 0RF Coding Level of Care Code Est Pt Level 4 (60595) Diagnoses Atypical pneumonia J18.9
[2024-07-19 13:46] VITALS: BP 122/80; PULSE 68; TEMP 36.6; O2SAT 98
--- OUTSIDE RECORDS SUMMARY | 2024-07-19 16:20 | XMS_ITS | Encounter Summary ---
Author Organization [facility] and [facility] Address [address] [place] [phone] Care Team Providers Care Guitar Teacher Name Role Phone Unavailable Primary Care Provider Unavailabl e Encounter Details Date Type Department Care Team (Late st Contact Info) Description 04/23/2012 Abstract [facility] Health Information Management [address] [place] [phone] Center, Primary Care [address] [place] [address] [phone] Social History Tobacco Use Types Packs/Day Years [...]
--- OUTSIDE RECORDS SUMMARY | 2024-07-19 16:20 | XMS_ITS | Clinical Summary ---
Author Organization [facility] Address [address] [place] [phone] Care Team Providers Care Commodity Broker Name Role Phone Unavailable Primary Care Provider [...] Shingrix (RZV) 2 Dose Standard Series) 2014 Covid-19 vaccine series (1 - 2023-25 season) 2023 Influenza vaccine 12/04/2024 Pneumococcal Vaccine (50+ ye ars) (1 of 1 - PCV) 2029 RSV Immunization (1 - 1-dose 75+ series) 06/15/2039 Meningococcal Vaccine Aged Out No deisi ramirez eligible based on patient's age to complete this topic Pneumococcal Vaccine (2 - 49 years) Aged Out No longer eligible based on patient's age to complete this topic
== END 2024-07-19 14:52 | disposition home or self-care (01) ==
PROVIDERS: PCP Internal Medicine; Visit Provider Physician Assistant
DX: Z13.9 Encounter for screening, unspecified (principal); J18.9 Pneumonia, unspecified organism

== ENCOUNTER → 2024-07-19 13:40 | Outpatient (BNVA) | payer OTHER, SELFPAY | PROVIDERS: PCP Internal Medicine; Visit Provider Physician Assistant | DX: J18.9 Pneumonia, unspecified organism (principal) | CPT/HCPCS: 87880 ==

== ENCOUNTER 2024-08-17 08:05 | Outpatient (REF) | payer OTHER, SELFPAY ==
--- NOTE | ~2024-08-17 | US_ITS ---
EXAMINATION: US NONINVASIVE ASSESSMENT OF THE bilateral LOWER EXTREMITY WITH ARTERIAL DUPLEX AND ANKLE BRACHIAL INDICES (ABIS) CLINICAL INFORMATION: Horizontal arteries and axials. PVD. COMPARISON: Ultrasound [facility] complete 10/20/2023 TECHNIQUE: Duplex Doppler techniques with waveform analysis and measurement of velocities in the common femoral, profunda femoris, superficial femoral, popliteal and tibial arteries were performed. In addition, ankle pulse volume recordings, ankle pressure measurements and ankle brachial indices were obtained of the bilateral lower extremity arterial system. The study was performed only at rest. FINDINGS: NONINVASIVE ASSESSMENT OF THE ARTERIES OF BILATERAL LOWER EXTREMITIES WITH ABIs: RIGHT LEG: Ankle-brachial index: 0.55 Ankle PVR: Abnormal, Monophasic LEFT LEG: Ankle-brachial index: 0.65 Left ankle PVR: Abnormal, monophasic [facility] Reference: 0.9 - 1.4 = normal - no significant arterial disease 0.7 - 0.89 = mild peripheral arterial disease 0.51 - 0.69 = moderate peripheral arterial disease 0.50 = severe peripheral arterial disease RIGHT LOWER EXTREMITY DUPLEX ULTRASOUND: Common femoral artery: 138 cm/s. Diastolic flow reversal: No Profunda femoris artery: 131 cm/s. Diastolic flow reversal: No Superficial femoral artery (proximal): 31 and and occludes just after origin cm/s. Diastolic flow reversal: No Superficial femoral artery (mid): Occluded stent cm/s. Diastolic flow reversal: none Superficial femoral artery (distal): Occluded cm/s. Diastolic flow reversal: none Popliteal artery: 28 cm/s Diastolic flow reversal: No Posterior tibial artery: 44 cm/s Diastolic flow reversal: No LEFT LOWER EXTREMITY DUPLEX ULTRASOUND: Common femoral artery: 217 cm/s. Diastolic flow reversal: Yes Profunda femoris artery: 67 cm/s. Diastolic flow reversal: No Superficial femoral artery (proximal): 48 cm/s. Diastolic flow reversal: No Superficial femoral artery (mid): Occluded cm/s. Diastolic flow reversal: none Superficial femoral artery (distal): 18 cm/s. 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 There is no flow. The distal femoral artery is occluded. There is reconstitution at the popliteal artery. The left femoral artery is patent with spectral broadening likely secondary to iliac disease. The mid femoral artery is occluded with distal reconstitution just above the popliteal artery through collaterals. Electronically signed by: Handy Loaiza MD 08/18/2024 11:42 AM EDT
--- OUTSIDE RECORDS SUMMARY | 2024-08-17 08:11 | XMS_ITS | Clinical Summary ---
Author Organization [facility] Address [address] [place] [phone] Care Team Providers Care Inspector Casing Name Role Phone Unavailable Primary Care Provider [...] cancer screening, Colonoscopy 2009 Diabetes screening 2009 Pneumococcal Vaccine (50+ ye ars) (1 of 1 - PCV) 2014 Shingles vaccine (Shingrix) (1 of 2 - Shingrix (RZV) 2 Dose Standard Series) 2014 Covid-19 vaccine series ( - 2023-25 season) 2023 Influenza vaccine 12/04/2024 RSV Immunization (1 - 1-dose 75+ series) 06/15/2039 Meningococcal Vaccine Aged Out No deisi ramirez eligible based on patient's age to complete this topic Pneumococcal Vaccine (2 - 49 years) Aged Out No longer eligible based on patient's age to complete this topic
--- OUTSIDE RECORDS SUMMARY | 2024-08-17 08:11 | XMS_ITS | Encounter Summary ---
Author Organization [facility] and [facility] Address [address] [place] [phone] Care Team Providers Care Interventional Cardiologist Name Role Phone Unavailable Primary Care Provider Unavailabl e Encounter Details Date Type Department Care Team (Late st Contact Info) Description 04/23/2012 Abstract [facility] Health Information Management [address] [place] [address] [phone] Center, Primary Care [address] [place] [address] [phone] Social History Tobacco Use Types Packs/Day Years [...]
== END 2024-08-17 08:06 | disposition home or self-care (01) ==
LOC: HO.US 08:05
PROVIDERS: PCP Internal Medicine; Visit Provider Surgery Vascular Surgery
DX: I77.9 Disorder of arteries and arterioles, unspecified (principal); Z95.820 Peripheral vascular angioplasty status with implants and grafts
CPT/HCPCS: 76706; 93922; 93925

== ENCOUNTER → 2024-08-17 08:08 | Outpatient (BNV) | payer OTHER, SELFPAY | PROVIDERS: PCP Internal Medicine; Visit Provider Radiology Diagnostic Radiology | DX: I73.9 Peripheral vascular disease, unspecified (principal); I70.92 Chronic total occlusion of artery of the extremities | CPT/HCPCS: 76706; 93922; 93925 ==

== ENCOUNTER 2024-08-24 14:32 | Outpatient (AMB) | payer OTHER, SELFPAY ==
--- OUTSIDE RECORDS SUMMARY | 2024-08-24 14:35 | XMS_ITS | Clinical Summary ---
Author Organization [facility] Address [address] [place] [phone] Care Team Providers Care Legal Investigator Name Role Phone Unavailable Primary Care Provider [...]
--- NOTE | 2024-08-24 14:38 | MHC.OFFVIS ---
Intake Visit Reasons: 6m follow up s/p Arterial US 08/17/24 Intake Note: Patient presents for follow up arterial US performed on 08/17/24. Occasionally cramping , swelling and pain. Patient states she has pain where the stent was placed. Also has purple discoloration on feet. Accompanied by: Self / Same As Patient Allergies No Known Allergies Allergy (Verified 08/24/24 14:40) HPI HPI 6m follow up s/p Arterial US 08/17/24: Details: Very pleasant 59-year-old female presents for follow-up regarding claudication. She has had prior endovascular work by us in particular the right lower extremity. It is gone worse to the point where she can barely walk 75 ft and she is recognizing some cramping in the right lower extremity. She now presents for follow-up with noninvasive testing that was done on an urgent basis due to her increased pain. [facility] Medical History Not ready to quit smoking Migraine Ventricular bigeminy Esophageal dysmotility Achalasia of the cricopharyngeus muscle S/P angiogram of extremity (02/03/23) Neck pain with history of cervical spinal surgery A-fib Difficulty swallowing Vitamin D deficiency Impaired fasting glucose Mixed dyslipidemia Varicose veins of right lower extremity with inflammation Claudication Tobacco abuse Obesity due to excess calories Surgical History S/P cardiac cath S/P ablation of atrial fibrillation Hx of colonoscopy Peripheral arterial occlusive disease Social History Housing: House Patient Tobacco Use Status: Current everyday Tobacco user Cigarette Packs Per Day: 0.5 Cigarettes Per Day: 10.0 e-Cigarette/Vaping Use: Never Used Second Hand Smoke Exposure: Yes service: No Current occupational status: employed Current occupational exposures/hazards: No Cognitive needs: No Hearing needs: No Vision needs: No Review of Systems Const All systems reviewed & are unremarkable except as noted in HPI and below Reports no additional complaints ENT Reports Normal hearing present Card Denies chest pain, Denies chest pain at rest, Denies chest pain with activity and Denies pedal edema Resp Denies cough GI Denies abdominal pain Musc Denies abnormal gait, Denies muscle cramps and Denies radiating pain into limb Skin/Breast Denies skin ulcer and Denies wounds Neuro Reports Normal hearing present and Denies abnormal gait Psych Reports no additional complaints Physical Exam Const General: cooperative, healthy appearing and comfortable Orientation/consciousness: oriented to person, oriented to place and oriented to time HEENT Head: Yes normal to inspection Neck Neck: Yes normal visual inspection Carotids: no bruits Chest Chest palpation & inspection: normal inspection of the chest Resp Effort & Inspection: normal respiratory effort and able to speak in complete sentences Auscultation: clear to auscultation bilaterally, no crackles, no rales, no rhonchi and no wheezes Cardio Other: Bilateral DP signals Rate: regular rate Rhythm: regular rhythm Heart sounds: S1 normal heart sound present and S2 normal heart sound present Bruits: no carotid bruits Peripheral pulses: Peripheral pulses 2+ throughout GI Inspection: Yes normal to inspection Skin Wounds: no wounds Hair: normal Neuro General: oriented to person, oriented to place and oriented to time Cranial nerves: Yes CN's II-XII intact bilaterally and Yes Normal hearing present Cognition (Neuro): normal cognition Motor exam (neuro): 5/5 motor strength present throughout Extrem Other: venous exam: No significant superficial varicosities or spider telangiectasias, minimal edema General: No clubbing, No cyanosis and No edema Psych Appearance: grossly normal Mental Status: mental status grossly normal Speech and movement: Normal speech and movement present Results Reviewed Results Reviewed: Noninvasive arterial testing dated 08/17/2024 demonstrates CASTILLO on the right of 0.55 and on the left of 0.65. Of note the right SFA is occluded and reconstitutes at the popliteal artery. Written report and images were reviewed. Assessment & Plan Assessment & Plan (1) Peripheral arterial occlusive disease: Comment: 03/11/2022 right external iliac plasty 02/03/2023 right SFA atherectomy and plasty 11/10/2023 - right SFA plasty and stent Code(s): I77.9 - Disorder of arteries and arterioles, unspecified Category: Surgical Plan: Patient notes leg pain when walking distances. I have discussed the pathophysiology of peripheral vascular disease with the patient. I have also discussed risk factor modification. I have reviewed the patient's arterial testing which reveals right SFA occlusion. the patient would benefit from a right leg endovascular peripheral angiogram with possible angioplasty, stent, and/or atherectomy. This has been discussed in detail with the patient along with risks, benefits, and complications. This includes but is not limited to bleeding, infection, heart attack, need for emergent surgical repair, limb ischemia, blood vessel damage, bleeding, puncture, kidney injury, bruising, allergic reaction, and skin reaction. The patient demonstrates a clear understanding. We will schedule for the next appropriate time. Thank you for allowing us to assist in this patient's care. Coding Level of Care Code Est Pt Level 4 (86707) Complex EM visit Add On G2211 Diagnoses Peripheral arterial occlusive disease I77.9
== END 2024-08-24 15:43 | disposition home or self-care (01) ==
LOC: HO.HVS 14:33
PROVIDERS: PCP Internal Medicine; Visit Provider Surgery Vascular Surgery
DX: I77.9 Disorder of arteries and arterioles, unspecified (principal)
CPT/HCPCS: 99214

== ENCOUNTER 2024-09-06 05:53 | Day surgery (SDC) | payer OTHER, SELFPAY ==
--- OUTSIDE RECORDS SUMMARY | 2024-08-25 06:47 | XMS_ITS | Clinical Summary ---
Author Organization [facility] Address [address] [place] [id number] Care Team Providers Care Fuel Pilot Engineer Name Role Phone Unavailable Primary Care Provider [...]
[2024-09-06] VITALS (21 sets, daily range): BP systolic 93–155; BP diastolic 46–78; PULSE 57–70; RESP 12–27; TEMP 36.1–36.7; O2SAT 93–99; BMI 33.6
[2024-09-06 06:29] LABS: MANUAL DIFF FLAG NO
[2024-09-06 06:34] LABS: Basophils Absolute Auto 0.1 X10*3/uL (0.0-0.2); Basophils Percent Auto 0.6 % (0-2); Eosinophils Absolute Auto 0.3 X10*3/uL (0.0-0.4); Eosinophils Percent Auto 2.7 % (0-4); Hematocrit 44.3 % (37.0-47.0); Hemoglobin 14.7 g/dl (12.0-16.0); Imm Gran Abs Auto 0.03 X10*3/uL (0.00-0.03); Imm Gran Pct Auto 0.3 % (0.0-0.4); Lymphocytes Absolute Auto 3.5 X10*3/uL (1.2-4.9); Lymphocytes Percent Auto 29.7 % (20-40); Mean Corpuscular HGB Conc 33.2 g/dl (31.0-35.0); Mean Corpuscular Volume 93.5 fL (80.0-98.0); Mean Platelet Volume 9.6 fL (9.4-12.3); Monocytes Absolute Auto 0.9 X10*3/uL (0.1-1.2); Monocytes Percent Auto 7.6 % (2-11); Neutrophils Absolute Auto 6.9 x10*3/uL (2.0-8.3); Neutrophils Percent Auto 59.1 % (45-73); Platelet Count 221 X10*3/uL (160-400); Red Blood Count 4.74 X10*6/uL (4.20-5.50); Red Cell Distribution Width 14.6 % (11.0-16.0); White Blood Count 11.7 X10*3/uL (4.8-10.8)
[2024-09-06] MEDS: 0.9 % Sodium Chloride 1,000 ML 100 ML IVCONT (06:41)
[2024-09-06 06:42] LABS: Blood Urea Nitrogen 12 mg/dL (9-16); Creatinine Clr Calc Pharmacy 92.3; Estimated Glomerular Filt Rate > 60
[2024-09-06] MEDS: Midazolam HCl 2 MG/2 ML VIAL 0.5 MG IVPUSH ×2 (07:56→08:11)
[2024-09-06] MEDS: fentaNYL citrate/PF 100 MCG/2 ML VIAL 25 MCG IVPUSH ×2 (07:56→08:11)
--- NOTE | 2024-09-06 08:59 | P.OP_ITS ---
Operative Note Operative Note Date of Service: 09/06/24 Narrative: Angiogram report from [facility] Preoperative diagnosis: Atherosclerosis of right lower extremity with activity limiting claudication Postoperative diagnosis: Same Procedure: 1. Ultrasound-guided left common femoral access 2. Ultrasound guided right common femoral access 3. Right lower extremity runoff Surgeon:Doron Nagy M.D., FACS, RPVI Electronics Hardware Design Engineer:None Anesthesia: Local with moderate conscious sedation. Total intraservice moderate sedation time was 54 minutes. I monitored the patient's level of consciousness and physiologic status continuously throughout the procedure. Specimens:none Drains:none Estimated blood loss: Less than 10 ml Radiation Dose: 211.6 mGy Implant: None Indications: 59-year-old female with severe history of peripheral vascular disease presents for follow-up regarding right lower extremity claudication. She had noninvasive testing which was concerning for stent occlusion. She now presents for endovascular intervention. The patient has signed the informed consent after reviewing risks, complications, benefits, and alternatives previously discussed with the patient. The patient was given the opportunity to ask any additional questions or voice any concerns. All questions were answered to the patient's satisfaction. Procedure in detail: Patient was brought to the angiography suite prior to which a time-out was called for patient identification and site verification. Bilateral groins were prepped and draped in the standard surgical fashion. Under ultrasound guidance left common femoral was punctured with micro puncture needle and wire. Subsequently we attempted to bring in a 5 Ugandan precision sheath over this. It would not track. We subsequently placed a 4 Ugandan and 5 Ugandan dilator we were unable to advance this. We then tried a 4 Ugandan sheath. We were able to get into the left common femoral we did perform an angiogram but we were unable to advance a wire and we noted extravasation of contrast. At this time catheter wire sheath was removed. Direct pressure was held for 10 minutes and then we turned our attention to the right common femoral. Through the right common femoral under ultrasound guidance once again we made a puncture with arterial entry needle and subsequently advanced a Glidewire advantage. This was able to track into the aorta. We subsequently placed a 5 Ugandan sheath. Through the 5 Ugandan sheath we did did a right lower extremity runoff study. No intervention was indicated. Sheath was then removed. A CELT 5 Ugandan closure device was then placed. Adequate hemostasis was achieved. Pat ient tolerated the procedure well returned to recovery with stable vitals. Interpretation of films: 1. Ultrasound demonstrates appropriate femoral access site. Vessel was patent with minimal stenosis. Needle entry was visualized. Image of ultrasound was saved. 2. Aortogram demonstrates appropriate caliber aorta. Minimal disease. Appropriate take-off of the renals. Aorta was small in caliber. 3. Iliac images demonstrate small caliber right common iliac and it did have a mild stenosis. Rest of the iliac down into the external iliac appeared to be normal once again extremely small in caliber. 4. Right Leg Common femoral artery: No significant disease Profundus Femoris: No significant disease Superficial femoral artery: Occludes at origin reconstitutes at the above knee popliteal Popliteal artery (p1,p2,p3): P1 P2 P3 segments all patent Anterior tibial artery: Present goes all the way down to the ankle. Peroneal artery: Present down to ankle and is the more dominant runoff vessel. Posterior tibial artery: Occluded Dorsalis pedis/plantar arch: Incomplete but we were unable to get good imaging and reflux contrast all the way down. Conclusion: 1. Successful diagnostic angiogram. Patient will require surgical intervention if clinically indicated. 2. Anticoagulation status: No change This note is constructed using voice recognition software. While every effort has been made to ensure accuracy, magnetometer operator errors may have been included. Thank you for allowing me to participate in the care of your patient. Yours sincerely, Doron Nagy MD, FACS, R.P.V.I.
== END 2024-09-06 11:52 | disposition home or self-care (01) ==
PROVIDERS: PCP Internal Medicine; Visit Provider Surgery Vascular Surgery
DX: I70.211 Atherosclerosis of native arteries of extremities with intermittent claudication, right leg (principal); M79.604 Pain in right leg; Z95.820 Peripheral vascular angioplasty status with implants and grafts; R25.2 Cramp and spasm; R26.2 Difficulty in walking, not elsewhere classified; I83.11 Varicose veins of right lower extremity with inflammation; I48.91 Unspecified atrial fibrillation; E78.5 Hyperlipidemia, unspecified; R73.01 Impaired fasting glucose; F17.210 Nicotine dependence, cigarettes, uncomplicated; Z98.890 Other specified postprocedural states
CPT/HCPCS: 36246; 36247; 36415; 75630; 76937; 82565; 84520; 85025; 99152; 99153; C1760; C1769; C1887; C1894; J1644; J2250; J3010; Q9967

== ENCOUNTER → 2024-09-06 05:53 | Outpatient (BNV) | payer OTHER, SELFPAY | PROVIDERS: PCP Internal Medicine; Visit Provider Surgery Vascular Surgery | DX: I70.211 Atherosclerosis of native arteries of extremities with intermittent claudication, right leg (principal) | CPT/HCPCS: 36200; 75630; 76937; 99152 ==

== ENCOUNTER 2024-09-19 15:01 | Outpatient (AMB) | payer OTHER, SELFPAY ==
--- NOTE | 2024-09-19 15:12 | MHC.OFFVIS ---
Intake Visit Reasons: 2w follow up s/ R leg angio 08/30/24 Intake Note: 2 wk follow up Right LE diagnostic angio 09/06/24. no changes. Hx of Right angioplasty 03/11/22, 02/03/2023 & 11/10/2023 Body Shop Floorperson Required: No Accompanied by: Self / Same As Patient Allergies No Known Allergies Allergy (Verified 09/19/24 15:14) HPI HPI 2w follow up s/ R leg angio 08/30/24: Details: Very pleasant 59-year-old female presents for follow-up regarding claudication and peripheral vascular disease. I have known her for a proximally 3 years continues to have progressive worsening of her claudication of the right lower extremity. At the time of our visit she reports that she can barely walk 50-75 feet and experiences significant cramping. She had actually followed up earlier than her scheduled annual surveillance and subsequently underwent diagnostic angiogram on 09/06/2024. She is a nondiabetic and smokes about a half a pack per day. 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 She now presents for routine postprocedure follow-up. [facility] Medical History Not ready to quit smoking Migraine Ventricular bigeminy Esophageal dysmotility Achalasia of the cricopharyngeus muscle S/P angiogram of extremity (02/03/23) Neck pain with history of cervical spinal surgery A-fib Difficulty swallowing Vitamin D deficiency Impaired fasting glucose Mixed dyslipidemia Varicose veins of right lower extremity with inflammation Claudication Tobacco abuse Obesity due to excess calories Surgical History S/P cardiac cath S/P ablation of atrial fibrillation Hx of colonoscopy Peripheral arterial occlusive disease Social History Housing: House Are you a primary day care assistant to a significant other at home: No Do you presently have visiting nurse or other home services: No Patient Tobacco Use Status: Current everyday Tobacco user Cigarette Packs Per Day: 0.5 Cigarettes Per Day: 10 e-Cigarette/Vaping Use: Never Used Second Hand Smoke Exposure: Yes service: No Current occupational status: employed Current occupational exposures/hazards: No Cognitive needs: No Hearing needs: No Vision needs: No Review of Systems Const All systems reviewed & are unremarkable except as noted in HPI and below Reports no additional complaints ENT Reports Normal hearing present Card Denies chest pain, Denies chest pain at rest, Denies chest pain with activity and Denies pedal edema Resp Denies cough GI Denies abdominal pain Musc Denies abnormal gait, Denies muscle cramps and Denies radiating pain into limb Skin/Breast Denies skin ulcer and Denies wounds Neuro Reports Normal hearing present and Denies abnormal gait Psych Reports no additional complaints Physical Exam Const General: cooperative, healthy appearing and comfortable Orientation/consciousness: oriented to person, oriented to place and oriented to time HEENT Head: Yes normal to inspection Neck Neck: Yes normal visual inspection Carotids: no bruits Chest Chest palpation & inspection: normal inspection of the chest Resp Effort & Inspection: normal respiratory effort and able to speak in complete sentences Auscultation: clear to auscultation bilaterally, no crackles, no rales, no rhonchi and no wheezes Cardio Other: Bilateral DP signals Rate: regular rate Rhythm: regular rhythm Heart sounds: S1 normal heart sound present and S2 normal heart sound present Bruits: no carotid bruits GI Inspection: Yes normal to inspection Skin Wounds: no wounds Hair: normal Neuro General: oriented to person, oriented to place and oriented to time Cranial nerves: Yes CN's II-XII intact bilaterally and Yes Normal hearing present Cognition (Neuro): normal cognition Motor exam (neuro): 5/5 motor strength present throughout Extrem Other: Groin puncture minimal hematoma General: No clubbing, No cyanosis and No edema Psych Appearance: grossly normal Mental Status: mental status grossly normal Speech and movement: Normal speech and movement present Results Reviewed Results Reviewed: Diagnostic angiogram from 09/06/2024 was reviewed Noninvasive arterial testing on 08/17/2024 demonstrated CASTILLO on the right of 0.55 and on the left of 0.65. Of note there was right SFA occlusion. Written report and images of both were reviewed. Assessment & Plan Assessment & Plan (1) Peripheral arterial occlusive disease: Comment: 03/11/2022 right external iliac plasty 02/03/2023 right SFA atherectomy and plasty 11/10/2023 - right SFA plasty and stent 09/06/2024 - diagnostic angiogram Code(s): I77.9 - Disorder of arteries and arterioles, unspecified Category: Surgical Plan: In short patient is an activity limiting claudication. It has gotten to the point where she is having difficulty carrying out her daily activities. Diagnostic angiogram indicates that she has occluded her SFA. The concern here is her extremely small vasculature. She does have small caliber vessels. She would like something done as she is at the point of not being able to carry out her daily activities. Due to the recurrent nature of this in the extremely small vasculature she may be better served at a tertiary care center. We will coordinate transition of care with her. I did review the pathophysiology of peripheral vascular disease with the patient. In addition we did discuss routine conservative measures including a healthy diet and the importance of exercise and ambulation. We did discuss risk factor modification. We will reach out to tertiary care centers due transition her care. Thank you for allowing us to assist in her care. The patient had an opportunity to ask questions regarding the treatment plan. All questions were answered. Imaging studies, laboratory studies and physical exam results were discussed and reviewed in detail. No major barriers to understanding were identified. The patient expressed understanding and agreement with the above treatment plan. The patient is aware they should contact our office by phone for worsening of the current condition or the appearance of new symptoms. Thank you for allowing me to participate in the vascular care of this patient. If you have any questions or concerns regarding the treatment for the above condition please do not hesitate to contact me. The office telephone contact is [phone]. This note is constructed using voice recognition software. While every effort has been made to ensure accuracy, americanization teacher errors may have been included. Thank you for allowing me to participate in the care of your patient. Yours sincerely, Doron Nagy MD, FACS, R.P.V.I. Plan Patient was informed and verbally consented to the use of an ambient scribe for clinic note documentation during this visit. Coding Level of Care Code Est Pt Level 4 (21841) Complex EM visit Add On G2211 Diagnoses Peripheral arterial occlusive disease I77.9
--- OUTSIDE RECORDS SUMMARY | 2024-09-19 17:30 | XMS_ITS | Clinical Summary ---
Author Organization [facility] Address [address] [place] [id number] Care Team Providers Care Benefits Consulting Analyst Name Role Phone Unavailable Primary Care Provider [...] Series) 2014 Covid-19 vaccine series ( - 2023- season) 2023 Influenza vaccine 12/04/2024 RSV Immunization (1 - 1-dose 75+ series) 06/15/2039 Meningococcal Vaccine Aged Out No deisi ramirez eligible based on patient's age to complete this topic
== END 2024-09-19 15:37 | disposition home or self-care (01) ==
LOC: HO.HVS 15:02
PROVIDERS: PCP Internal Medicine; Visit Provider Surgery Vascular Surgery
DX: I77.9 Disorder of arteries and arterioles, unspecified (principal)
CPT/HCPCS: 99214

== ENCOUNTER 2024-09-25 14:47 | Outpatient (AMB) | payer OTHER, SELFPAY ==
--- NOTE | 2024-09-25 14:55 | A.OFFVIS_ITS ---
Vital Signs 09/25/24 14:58 Height 5 ft 6 in Weight 207 lb 3.752 oz BMI 33.4 BP 120/80 Blood Pressure Location Lt brachial Position Sitting Pulse 72 Intake Visit Reasons: 6 mth /f/up Intake Note: 6 month follow-up with ekg feeling good Allergies No Known Allergies Allergy (Verified 09/19/24 15:14) Medication List - Last Reconciled 09/25/24 by Denton Cota MD amitriptyline 50 mg PO BEDTIME aspirin (Adult Aspirin Regimen) 81 mg PO DAILY meclizine 25 mg PO QID PRN omega-3 fatty acids 1,250 mg PO BID propranolol ER 120 mg PO DAILY rosuvastatin 10 mg PO DAILY vitamin E (dl, acetate) 45 mg PO DAILY HPI Comments Details: Britt Wakefield returns for follow-up. Per patient, she underwent atrial fibrillation ablation around [address] Lazar -at [facility]. No issues in that regard. She does not take any anticoagulation as there are no recent issues. Otherwise, chronic smoker and she still smokes. She also has history of PVCs. She has undergone comprehensive workup including echocardiogram, stress test followed by a diagnostic catheterization. 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 Medically managed. Since last seen, she has not had any new cardiac concerns. No angina or anything along those lines. She plans to go to [place] for vascular surgery consultation. [facility] Medical History Not ready to quit smoking Migraine Ventricular bigeminy Esophageal dysmotility Achalasia of the cricopharyngeus muscle S/P angiogram of extremity (02/03/23) Neck pain with history of cervical spinal surgery A-fib Difficulty swallowing Vitamin D deficiency Impaired fasting glucose Mixed dyslipidemia Varicose veins of right lower extremity with inflammation Claudication Tobacco abuse Obesity due to excess calories Surgical History S/P cardiac cath S/P ablation of atrial fibrillation Hx of colonoscopy Peripheral arterial occlusive disease Social History Housing: House Are you a primary wound care rn to a significant other at home: No Do you presently have visiting nurse or other home services: No Patient Tobacco Use Status: Current everyday Tobacco user Cigarette Packs Per Day: 0.5 Cigarettes Per Day: 10 e-Cigarette/Vaping Use: Never Used Second Hand Smoke Exposure: Yes service: No Current occupational status: employed Current occupational exposures/hazards: No Cognitive needs: No Hearing needs: No Vision needs: No Review of Systems Const Denies chills, Denies fatigue, Denies fever(s), Denies frequent falls, Denies weakness, Denies weight gain and Denies weight loss ENT Denies dizziness Card Denies chest pain, Denies leg edema, Denies lightheadedness, Denies palpitations, Denies dyspnea, Denies dyspnea on exertion, Denies orthopnea and Denies other (loss of consciousness) Resp Denies cough, Denies dyspnea and Denies dyspnea on exertion GI Denies hematochezia and Denies change in stool character Musc Denies abnormal gait, Denies muscle weakness, Denies numbness, Denies radiating pain into limb and Denies tingling Neuro Denies abnormal gait, Denies dizziness, Denies frequent falls, Denies numbness, Denies tingling and Denies weakness Endo Denies fatigue and Denies palpitations Physical Exam Vital Signs: Last Vital Signs Pulse 72 09/25/24 14:58 BP 120/80 09/25/24 14:58 BMI result Body Mass Index 33.4 Const General: comfortable and no acute distress Orientation/consciousness: patient oriented x3 HEENT Other: Unremarkable Head: Yes normal to inspection Neck Neck: Yes normal visual inspection Chest Chest palpation & inspection: normal inspection of the chest Resp Auscultation: clear to auscultation bilaterally Cardio Palpation: normal PMI Heart sounds: S1 normal heart sound present, S2 normal heart sound present, no gallops, no murmurs and no rubs GI Palpation (GI): Soft to palpation Back/Spine/Pelvis Other: unremarkable Skin General skin exam: no rashes or lesions noted Neuro General: patient oriented x3 Extrem General: Yes normal to inspection Psych Mental Status: mental status grossly normal Office Procedures EKG Details: EKG with underlying sinus rhythm at 72/Min; cannot exclude old anterior infarct, but more likely from body habitus; [place] [address]-[id number], Complete Assessment & Plan Assessment & Plan (1) Atherosclerotic cardiovascular disease: Code(s): I25.10 - Atherosclerotic heart disease of [place] coronary artery without angina pectoris Category: Medical Plan: Cardiac catheterization data reviewed from 08/2023. Right coronary artery INTEGRATION SPECIALIST with [id number] collaterals. Mild disease in the LAD. Minimal disease in the left circumflex. On aspirin/statins. Clinically, she has got no angina. (2) S/P ablation of atrial fibrillation: Code(s): Z98.890 - Other specified postprocedural states; Z86.79 - Personal history of ot her diseases of the circulatory system Category: Surgical Plan: No recent issues. (3) PVC (premature ventricular contraction): Code(s): I49.3 - Ventricular premature depolarization Category: Medical Plan: Variable burden on Holter. In the initial Holter, PVC burden was about 14%. In the follow-up Holter, only 0.5%. In the echocardiogram, preserved LVEF at 60- 65%. No specific interventions. (4) Peripheral vascular disease: Code(s): I73.9 - Peripheral vascular disease, unspecified Category: Medical Plan: Follows up with vascular surgery. She plans to go to [place] for a consultation. From the cardiac standpoint, risk could be considered intermediate. Perioperative risks including myocardial infarction discussed today. (5) Mixed dyslipidemia: Code(s): E78.2 - Mixed hyperlipidemia Category: Medical Plan: LDL levels were in the 170s. Most recently 56 mg mg/dL. Triglycerides are still on the higher side in the 200s. Continue statins. Also on omega-3. Weight loss would help if able. (6) Smoker: Code(s): F17.200 - Nicotine dependence, unspecified, uncomplicated Category: Social Hx Plan: Strongly advised to stop. We discussed about this today. Plan Discussion Notes We discussed about her pending vascular surgery consultation at [place]. We talked about the importance of smoking cessation, especially before any surgical procedures, to reduce anesthesia-related risks. I confirmed that her atrial fibrillation remains well-managed post-ablation, and we will continue her current medications, including propranolol and rosuvastatin. Patient was informed and verbally consented to the use of an ambient scribe for clinic note documentation during this visit. Patient Instructions: - Quit smoking, especially before any surgical procedures, to reduce risks. - Continue taking propranolol and rosuvastatin as prescribed. - Contact us with any cardiac symptoms or other concerns. Coding Level of Care Code Est Pt Level 4 (32123) Complex EM visit Add On G2211 Diagnoses Atherosclerotic cardiovascular disease I25.10 S/P ablation of atrial fibrillation Z98.890; Z86.79 PVC (premature ventricular contraction) I49.3 Peripheral vascular disease I73.9 Mixed dyslipidemia E78.2 Smoker F17.200 CPT Codes EKG - CPT: 33555-Tjteaziuyvoiiyplu, Complete ([id number])
[2024-09-25 14:58] VITALS: BP 120/80; PULSE 72; BMI 33.4
--- OUTSIDE RECORDS SUMMARY | 2024-09-25 16:21 | XMS_ITS | Encounter Summary ---
Author Organization [facility] Address [address] [place] [id number] Care Team Providers Care Leak Inspector Name Role Phone Unknown Primary Care Provider [phone] Encounter Details Date Type Department Care Team (Late st Contact Info) Description 09/20/2024 Scanned Document [facility] Vascular & Endovascular Surgery [address] [phone] Shanice Lyons RN [address] [place] [id number] Social History Tobacco Use Types Packs/Day Years Used Date Smoking Tobacco: Never Assessed Comments Unknown Sex and Gender Information Value Date Recorded Sex Assigned at Not on file Legal Sex Female 7:10 PM EST Gender Identity Not on file Sexual Orientation Not on file documented as of this encounter Plan of Treatment Upcoming Encounters Date Type Department Care Team (Late st Contact Info) Description 09/27/2024 1:30 PM EDT Ancillary Procedure [facility] Vascular & Endovascular Surgery [address] [place] [phone] Vimal Galvan MD [address] [place] [phone] 10/03/2024 2:00 PM EDT Consult [facility] Vascular & Endovascular Surgery [address] [phone] Vimal Galvan MD [address] [place] [phone] documented as of this encounter Visit Diagnoses Not on filedocumented in this encounter Care Teams Leak Inspector Relationship Specialty Start Date End Date Unknown Unknow Provider Address PCP - General 09/25/24 documented as of this encounter
== END 2024-09-25 15:38 | disposition home or self-care (01) ==
LOC: HO.HCS 14:48
PROVIDERS: PCP Internal Medicine; Visit Provider Internal Medicine
DX: I25.10 Atherosclerotic heart disease of native coronary artery without angina pectoris (principal); Z98.890 Other specified postprocedural states; Z86.79 Personal history of other diseases of the circulatory system; I49.3 Ventricular premature depolarization; I73.9 Peripheral vascular disease, unspecified; E78.2 Mixed hyperlipidemia; F17.200 Nicotine dependence, unspecified, uncomplicated
CPT/HCPCS: 93010; 99214

== ENCOUNTER → 2024-09-25 14:47 | Outpatient (BNVA) | payer OTHER, SELFPAY | PROVIDERS: PCP Internal Medicine; Visit Provider Internal Medicine | DX: I25.10 Atherosclerotic heart disease of native coronary artery without angina pectoris (principal); I10 Essential (primary) hypertension; I49.3 Ventricular premature depolarization; I25.82 Chronic total occlusion of coronary artery; I73.9 Peripheral vascular disease, unspecified; E78.2 Mixed hyperlipidemia; F17.210 Nicotine dependence, cigarettes, uncomplicated; Z98.890 Other specified postprocedural states; Z86.79 Personal history of other diseases of the circulatory system | CPT/HCPCS: 93005 ==

== ENCOUNTER 2024-10-13 10:11 | Outpatient (AMB) | payer OTHER, SELFPAY ==
--- NOTE | 2024-10-13 10:12 | A.OFFPC_ITS ---
Intake Visit Reasons: discuss quit smoking I phone Intake Note: Pt is having a telehealth visit to discuss option to quit smoking Allergies No Known Allergies Allergy (Verified 10/13/24 10:15) Medication List - Last Reconciled 10/13/24 by Maureen Solano MD amitriptyline 50 mg PO BEDTIME aspirin (Adult Aspirin Regimen) 81 mg PO DAILY cilostazol 50 mg PO BID meclizine 25 mg PO QID PRN omega-3 fatty acids 1,250 mg PO BID propranolol ER 120 mg PO DAILY rosuvastatin 10 mg PO DAILY vitamin E (dl, acetate) 45 mg PO DAILY Tobacco use date assessed: 10/13/24 Dental Screening Dental Screen Date: 10/13/24 Did you have a dental visit in the last 12 months?: Yes Did you have a dental problem in the last 6 months where you did not have access to dental care?: No Was dental information given to patient?: Patient has dentist HPI discuss quit smoking I phone HPI Details - The patient is a 59-year-old female wi th history of peripheral vascular disease, presenting for smoking cessation - Tobacco use disorder: The patient smok es 10 or fewer cigarettes daily and has not attempted quitting cold turkey due to her 's smoking habits. - She is motivated to quit smoking due t o her peripheral vascular disease and has been advised by her vascular surgeon to quit smoking and engage in a home walking program. - Peripheral vascular disease: The patie nt has undergone four procedures on her right leg for circulation issues. The last procedure resulted in a blocked stent that could not be unblocked, and a bypass was not recommended due to her age and smoking status. - She has been referred to Dr. Galvan in [facility], who advised against bypass surgery due to the risk of failure and potential limb loss. [facility] Medical History (Updated 10/13/24 @ 10:25 by Maureen Solano MD) Cigarette smoker motivated to quit Not ready to quit smoking Migraine Ventricular bigeminy Esophageal dysmotility Achalasia of the cricopharyngeus muscle S/P angiogram of extremity (02/03/23) Neck pain with history of cervical spinal surgery A-fib Difficulty swallowing Vitamin D deficiency Impaired fasting glucose Mixed dyslipidemia Varicose veins of right lower extremity with inflammation Claudication Tobacco abuse Obesity due to excess calories Surgical History S/P cardiac cath S/P ablation of atrial fibrillation Hx of colonoscopy Peripheral arterial occlusive disease Social History Housing: House Are you a primary care specialist to a significant other at home: No Do you presently have visiting nurse or other home services: No Patient Tobacco Use Status: Current everyday Tobacco user Cigarette Packs Per Day: 0.5 Cigarettes Per Day: 10 e-Cigarette/Vaping Use: Never Used Second Hand Smoke Exposure: Yes service: No Current occupational status: employed Current occupational exposures/hazards: No Cognitive needs: No Hearing needs: No Vision needs: No Questionnaire PHQ-9 Over the last 2 weeks, how often have you been bothered by any of the following problems? 1. Little interest or pleasure in doing things: not at all 2. Feeling down, depressed, or hopeless: not at all 3. Trouble falling or staying asleep, or sleeping too much: not at all 4. Feeling tired or having little energy: not at all 5. Poor appetite or overeating: not at all 6. Feeling bad about yourself - or that you are a failure or have let yourself or your family down: not at all 7. Trouble concentrating on things, such as reading the newspaper or watching television: not at all 8. Moving or speaking so slowly that other people could have noticed. Or the opposite - being so fidgety or restless that you have been moving around a lot more than usual: not at all 9. Thoughts that you would be better off or of hurting yourself in some way: not at all Total score: 0 Depression Screening Interpretation: Negative Depression Screening Done: Yes 32610 - PHQ-9 Billing: Yes Source: Developed by Drs. Ozzie Brandon, Ely Prado, Twin Loaiza and colleagues, with an educational chetna from [employer]. Thrive Questionnaire Date Thrive assessed: 10/13/24 I am a: Patient What is your living situation today?: I have a steady place to live Within the past 12 months, did the food you bought not last and you didn't have the money to get more?: Never true Within the past 12 months, did you worry whether your food would run out before you got money to buy more?: Never true Do you have trouble paying for medicines?: No Do you have trouble getting transportation to medical appointments?: No Do you have trouble paying your heating and electricity bill?: No Do you have trouble taking care of your child, family member or friend?: No Do you have trouble with day-to-day activities such as bathing, preparing meals, shopping, managing finances, etc.?: No Are you currently unemployed and looking for a job?: No Are you interested in more education?: No Please select the resources that you would like help with: None Currently or been in a relationship where the following occur: No concerns reported THRIVE Score: 0 AUDIT C Alcohol Use Questionnaire (AUDIT-C) 1. How often do you have a drink containing alcohol?: Never 3. How often do you have six or more drinks on one occasion?: Never Total Score: 0 PURNIMA-7 AMB Questionnaire PURNIMA-7 Date PURNIMA - 7 assessed: 10/13/24 Feeling nervous, anxious, or on edge: 0 = Not at all Not being able to stop or control worryin = Not at all Worrying too much about different things: 0 = Not at all Trouble relaxin = Not at all Being so restless that it is hard to sit still: 0 = Not at all Becoming easily annoyed or irritable: 0 = Not at all Feeling afraid as if something awful might happen: 0 = Not at all Total PURNIMA-7 score (0-4 normal; 5-9 mild; 10-14 moderate; 15-21 severe): 0 Source: Developed by Drs. Ozzie Brandon, Ely Prado, Twin Loaiza and colleagues, with an educational chetna from [employer]. PURNIMA-7 Assessment Billing PURNIMA-7 Assessment Tool: PURNIMA-7 Assessment 51208 Physical exam (Primary Care) Tobacco/Smoking Status: Tobacco use Status Tobacco use date assessed 10/13/24 10/13/24 10:13 Patient Tobacco Use Status Current everyday Tobacco 10/13/24 10:13 e-Cigarette/Vaping Use Never Used 10/13/24 10:13 PHQ-9: PHQ-9 Score PHQ-9: Total score 0 10/13/24 10:18 Depression Screening Interpretation: Negative Thrive Assessment: Date of Thrive Assessment Date Thrive assessed 10/13/24 10/13/24 10:15 Currently or been in a relationship where the following occur: No concerns reported Telehealth Telehealth Telehealth Platform: [employer] Location of provider rendering services: practice address Location of patient: address on file Patient Identification confirmed using: Name, : Yes Telehealth method: video Patient verbally consented to treatment: Yes Patient verbally consented to billing insurance company: Yes Patient informed of any privacy concerns related to visit: Yes Minutes spent on Phone/Video with Pt.: 15 Coding Level of Care Code Tele Est Pt Level 4 (95712) Diagnoses Peripheral arterial occlusive disease I77.9 Cigarette smoker motivated to quit F17.210 Additional Codes PHQ-9 - 56867 - PHQ-9 Billing: Yes ([id number]) PURNIMA-7 Assessment Billing - PURNIMA-7 Assessment Tool: PURNIMA-7 Assessment 36569 ([id number]) Assessment & Plan Assessment & Plan (1) Peripheral arterial occlusive disease: Comment: 03/11/2022 right external iliac plasty 02/03/2023 right SFA atherectomy and plasty 11/10/2023 - right SFA plasty and stent 09/06/2024 - diagnostic angiogram Code(s): I77.9 - Disorder of arteries and arterioles, unspecified Category: Surgical (2) Cigarette smoker motivated to quit: Code(s): F17.210 - Nicotine dependence, cigarettes, uncomplicated Category: Social Hx Plan The patient will start Wellbutrin as a smoking cessation aid, beginning with 150 mg once daily for the first three days, then increasing to 150 mg twice daily, ensuring doses are at least eight hours apart and not taken after 3 PM to avoid insomnia. She is advised to set a quit date and begin the medication prior to this date to allow the medication to take effect. The patient is instructed to take the medication with or without food, but not to chew, crush, or divide the tablets to maintain the extended release. If a dose is missed, she should take it as soon as remembered but not double up on doses. She is advised to drink plenty of water and take the medication with food if nausea or dizziness occurs, and to discontinue use if a rash develops. Follow-up is scheduled in four weeks to assess progress with the smoking cessation program. Patient was informed and verbally consented to the use of an ambient scribe for clinic note documentation during this visit. Medications: New bupropion HCl (smoking deter) Take 1 tablet in the morning for the 1st 3 days, and then increase it to twice a day dosing , at least 8 hours apart afterwards. Do not take later than 15:00 150 mg PO BID 60 tabs 3RF F17.210 - Nicotine dependence, cigarettes, uncomplicated, I25.10 - Atherosclerotic heart disease of [place] coronary artery without angina pectoris, I77.9 - Disorder of arteries and arterioles, unspecified
--- OUTSIDE RECORDS SUMMARY | 2024-10-13 10:41 | XMS_ITS | Encounter Summary ---
Author Organization [facility] Address [address] [place] [phone] Care Team Providers Care Audio Visual Collections Coordinator Name Role Phone Unknown Primary Care Provider [phone] Maureen Solano MD Primary Care Provider Encounter Details Date Type Department Care Team (Late st Contact Info) Description 09/20/2024 Scanned Document [facility] Vascular & Endovascular Surgery [place] [address] [facility] [address] [place] [address] [phone] Shanice Lyons RN [address] [address] Social History Tobacco Use Types Packs/Day Years Used Date Smoking Tobacco: Never Assessed Comments Unknown Sex and Gender Information Value Date Recorded Sex Assigned at Female 09/27/2024 1:10 PM EDT Legal Sex Female 7:10 PM EST Gender Identity Female 09/27/2024 1:10 PM EDT Sexual Orientation Heterosexual (straight) 09/27 1:10 PM EDT documented as of this encounter Plan of Treatment Upcoming Encounters Date Type Department Care Team (Late st Contact Info) Description 01/08/2025 1:00 PM EDT Appointment [facility] [address] [place] [phone] Vimal Galvan MD [address] [address] 01/08/2025 2:00 PM EDT Office Visit [facility] Vascular & Endovascular Surgery [place] [address] [facility] [address] [place] [address] Vimal Galvan MD [address] [place] [address] [address] [place] [address] documented as of this encounter Visit Diagnoses Not on filedocumented in this encounter Care Teams Audio Visual Collections Coordinator Relationship Specialty Start Date End Date Unknown Unknow Provider Address PCP - General 09/25/24 10/02/24 Maureen Solano MD [address] [place] [phone] PCP - General Internal Medicine 10/03/24 documented as of this encounter
--- OUTSIDE RECORDS SUMMARY | 2024-10-13 10:41 | XMS_ITS | Encounter Summary ---
Author Organization [facility] Address [address] [place] [phone] Care Team Providers Care Carpet Journeyman Name Role Phone Unavailable Primary Care Provider Unavailabl e Encounter Details Date Type Department Care Team (Late st Contact Info) Description 04/23/2012 Abstract PENDING SALE TO [facility] Health Information Management [address] [place] [address] [phone] Center, Primary Care [address] [place] [address] [phone] Social History Tobacco Use Types Packs/Day Years [...]
== END 2024-10-13 10:28 | disposition home or self-care (01) ==
LOC: HO.HMCC 10:11
PROVIDERS: PCP Internal Medicine; Visit Provider Internal Medicine
DX: I77.9 Disorder of arteries and arterioles, unspecified (principal); F17.210 Nicotine dependence, cigarettes, uncomplicated

== ENCOUNTER → 2024-10-13 10:11 | Outpatient (BNVA) | payer OTHER, SELFPAY | PROVIDERS: PCP Internal Medicine; Visit Provider Internal Medicine | DX: F17.210 Nicotine dependence, cigarettes, uncomplicated (principal); I73.9 Peripheral vascular disease, unspecified; I25.10 Atherosclerotic heart disease of native coronary artery without angina pectoris; Z71.6 Tobacco abuse counseling | CPT/HCPCS: 96127 ==

== ENCOUNTER 2024-10-19 16:02 | Outpatient (AMB) | payer OTHER, SELFPAY ==
--- NOTE | 2024-10-19 16:09 | MHC.OFFVIS ---
Vital Signs 10/19/24 16:15 Height 5 ft 6 in Intake Visit Reasons: 2m migraine Allergies No Known Allergies Allergy (Verified 10/13/24 10:15) Medication List - Last Reconciled 10/19/24 by Ame Vilchis CNP amitriptyline 25 mg PO BEDTIME aspirin (Adult Aspirin Regimen) 81 mg PO DAILY bupropion HCl (smoking deter) 150 mg PO BID meclizine 25 mg PO BID PRN omega-3 fatty acids 1,250 mg PO BID ondansetron 4 mg PO DAILY PRN propranolol ER 120 mg PO DAILY rosuvastatin 10 mg PO DAILY vitamin E (dl, acetate) 45 mg PO DAILY HPI Comments Details: She did not start Ajovy or zolmitriptan due to cost. Migraines have been under control with propranolol 120mg and amitriptyline 25mg. No significant migraines in the last week. Few mild headaches that can last all day. No photophobia, sonophobia, or nausea. Dizziness has been okay for the most part. Sleep was about the same. Ongoing stress. 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 She was taking bupropion to help her stop smoking. She was unable to tolerate increased dose of amitriptyline due to drowsiness. Migraines with visual aura, pain all over head, throbbing-type. Associated with photophobia, sonophobia, and nausea. Dizziness was not so bad. She tried Excedrin, Advil, and Tylenol as needed with no relief. She did not like how she felt with sumatriptan. Was unable to increase propranolol dose due to cost, continues with 120mg. Previously, headaches were happening 3-4x/week. Headaches were all over, dull, occasional sharp pains. Gets dizzy spells few times a week, sometimes followed by head. Dizziness feels like a head glynn, where everything appears to be moving and difficult to focus, lasting seconds or minutes. Sleeps about 5 hours/night. Some increased stress, 30-year-old nephew moved in with her and her a few months ago. She has to pick him up from work around 10pm each night and she wakes up around 3:45am to do some house chores before work. Gets dizzy spells, lasting few seconds to minutes, usually with migraines. Had dizzy spell and felt off balance for 5 minutes followed by bad headache. Episodes of room spinning when turning in bed or moving in certain positions. Has trouble falling asleep and maintaining sleep. Propranolol 60mg in the morning made her feel too fuzzy and she stopped. Gabapentin also causes this feeling and she does not use it every night. Had cardiac cath in 08/2023 and was found to have 100% blockage of artery with development of collateral circulation. Had R leg angioplasty and stent placement in 11/2023. Was having bigeminy, dizziness with presyncope and weird vision, lasting up to 20 minutes followed by headache, but not migraine and was relieved by Tylenol and sleep. Lightheaded dizzy spells lasting 30 seconds, episodes of inability to focus eyes. Previously was getting sudden onset of lightheaded dizziness for 30 seconds up to 2 minutes followed by headache for hours with nausea at times, no photophobia. Hx of migraines with visual aura since age 16. Enlightened Lifestyle did not work in the past. Intolerant to topiramate. [facility] Medical History (Updated 10/19/24 @ 16:17 by Ame Vilchis CNP) PAD (peripheral artery disease) Cigarette smoker motivated to quit Not ready to quit smoking Migraine Ventricular bigeminy Esophageal dysmotility Achalasia of the cricopharyngeus muscle S/P angiogram of extremity (02/03/23) Neck pain with history of cervical spinal surgery A-fib Difficulty swallowing Vitamin D deficiency Impaired fasting glucose Mixed dyslipidemia Varicose veins of right lower extremity with inflammation Claudication Tobacco abuse Obesity due to excess calories Surgical History S/P cardiac cath S/P ablation of atrial fibrillation Hx of colonoscopy Peripheral arterial occlusive disease Social History Housing: House Are you a primary inpatient care manager rn to a significant other at home: No Do you presently have visiting nurse or other home services: No Patient Tobacco Use Status: Current everyday Tobacco user Cigarette Packs Per Day: 0.5 Cigarettes Per Day: 10 e-Cigarette/Vaping Use: Never Used Second Hand Smoke Exposure: Yes service: No Current occupational status: employed Current occupational exposures/hazards: No Cognitive needs: No Hearing needs: No Vision needs: No Review of Systems Const Denies chills, Denies daytime sleepiness, Reports difficulty sleeping, Denies fatigue, Denies fever(s), Denies frequent falls, Reports headache(s), Denies increased appetite, Denies poor appetite, Denies snoring, Denies weakness, Denies weight gain and Denies weight loss Eyes Denies loss of vision ENT Denies vertigo, Reports dizziness, Reports headache(s) and Denies neck pain Card Denies chest pain at rest, Denies chest pain with activity, Denies syncope, Denies leg edema, Denies palpitations, Denies dyspnea and Denies dyspnea on exertion Resp Denies cough, Denies dyspnea, Denies dyspnea on exertion and Denies snoring GI Denies abdominal pain, Denies constipation, Denies heartburn, Denies diarrhea and Denies nausea Denies urinary frequency, Denies urinary incontinence and Denies urinary urgency Musc Denies abnormal gait, Denies back pain, Denies myalgias, Denies arthralgias, Denies neck pain, Denies numbness and Denies tingling Neuro Denies abnormal gait, Denies vertigo, Reports dizziness, Denies syncope, Denies frequent falls, Reports headache(s), Denies lack of coordination, Denies loss of vision, Denies memory loss, Denies numbness, Denies Other visual disturbances, Denies restless legs, Denies seizure-like activity, Denies tingling, Denies paresthesias, Denies tremor(s) and Denies weakness Psych Denies anxiety, Denies depression, Denies auditory hallucinations, Denies memory loss and Denies visual hallucinations Endo Denies fatigue and Denies palpitations Physical Exam Const Other: General Appearance:? normal, in no acute distress. Heart:? S1, S2 normal, no murmurs. Lungs:? clear anteriorly and posteriorly. Musculoskeletal:? normal. Extremities:? no edema. Psych:? alert, oriented, cognitive function intact, cooperative with exam. Neuro Other: Abnormal Neurological Findings:?none.? Mental Status: alert and oriented X 3. Normal attention, orientation, memory, and affect. Cranial Nerves: Pupils are equal, round, and reactive to light. External ocular muscles are intact. Visual miller are full, no ptosis. Face is symmetrical, no facial weakness or droop. Facial sensations are normal. Tongue protrudes in midline. Palate elevates symmetrically. Shoulder shrugging is normal Motor Examination: Normal muscle tone, bulk and strength. No atrophy or fasciculations. No drift of the extended upper extremities. DTR 2+. Plantars are flexor. Straight Leg Raisin degrees. Sensory Exam: Normal light touch, temperature, pinprick, vibration, and joint-position sensations. Rhomberg sign is absent. Coordination: No ataxia. No titubation. [id number], zrhz-wadx-lbve test, and rapid alternating movements were normal. Gait Exam: Within normal limits. Cerebellar Signs: Pwcrco-ju-lhiy and imos-qk-gmho is normal. No dysdiadochokinesia. Extrapyramidal System: No tremor, rigidity with normal facial expressions. No bradykinesia. No bradyphrenia. Normal arm swing and posture. No propulsion or retropulsion. Speech: Normal. No dysphasia or dysarthria. Assessment & Plan Assessment & Plan (1) Migraine with aura: Code(s): G43.109 - Migraine with aura, not intractable, without status migrainosus Category: Medical Qualifiers: Status migrainosus presence: without status migrainosus Intractability: not intractable Qualified Code(s): G43.109 - Migraine with aura, not intractable, without status migrainosus Plan: She was unable to start Ajovy or zolmitriptan due to cost. Migraines were generally controlled with propranolol and amitriptyline at this time, and medications were continued. Continue propranolol ER 120mg 1 capsule daily. Continue amitriptyline 25mg 1 tablet at bedtime. Continue ondansetron 4mg 1 tablet as needed for nausea. (2) Dizziness: Code(s): R42 - Dizziness and giddiness Category: Medical Plan: Continue meclizine 25mg 1 tablet as needed twice a day. Plan Meds tried: Gabapentin, propranolol, amitriptyline (unable to tolerate > 25mg), nortriptyline, topiramate (side effects), sumatriptan, butalbital Coding Level of Care Code Est Pt Level 4 (57735) Diagnoses Migraine with aura and without status migrainosus, not intractable G43.109 Status migrainosus presence: without status migrainosus Intractability: not intractable Dizziness R42
--- OUTSIDE RECORDS SUMMARY | 2024-10-19 16:20 | XMS_ITS | Encounter Summary ---
Author Organization [facility] Address [address] [place] [id number] Care Team Providers Care Straw Hat Brim Raiser Operator Name Role Phone Unknown Primary Care Provider [phone] Maureen Solano MD Primary Care Provider [phone] Encounter Details Date Type Department Care Team (Late st Contact Info) Description 09/20/2024 Scanned Document [facility] Vascular & Endovascular Surgery [place] [address] [facility] [address] [place] [phone] Shanice Lyons RN [address] [id number] Social History Tobacco Use Types Packs/Day Years [...] Info) Description 01/08/2025 1:00 PM EDT Appointment [facility] Radiology [address] [place] [phone] Vimal Galvan MD [address] [id number] 01/08/2025 2:00 PM EDT Office Visit [facility] Endovascular [facility] [place] [address] [facility] [address] [place] [address] Vimal Galvan MD [address] [place] [address] [address] [place] [address] documented as of this encounter Visit Diagnoses Not on filedocumented in this encounter Care Teams Straw Hat Brim Raiser Operator Relationship Specialty Start Date End Date Unknown Unknow Provider Address PCP - General 09/25/24 10/02/24 Maureen Solano MD [address] [place] [id number] PCP - General Internal Medicine 10/03/24 documented as of this encounter
--- OUTSIDE RECORDS SUMMARY | 2024-10-19 16:20 | XMS_ITS ---
Author Name [facility] Organization Unknown History of Medication Use Medication Directions Dispensed Refills Start Date End Date Stat us cilostazol (PLETAL) 50 mg tablet Take 1 tablet (50 mg total) by mouth 2 (two) times a day. Take 30 mins before or 2 hours after means (breakfast and dinner) 10/03/2024 active amitriptyline (ELAVIL) 25 MG tablet Take 1 tablet (25 mg total) by mouth nightly. 09/06/2024 active Rosuvastatin Calcium 10 MG Capsule Sprinkle 1 capsule (10 mg total). 09/10/2023 active aspirin enteric coated (Aspir-Low) 81 MG EC tablet Take 1 tablet (81 mg total) by mouth daily. active cholecalciferol 10 MCG (400 UNIT) tablet Take 1 tablet (400 Units total) by mouth daily. active [place]-3 Fatty Acids (Fish Oil) 1200 MG Cap 1,200 mg. ac tive propranolol (INDERAL LA) 120 MG 24 hr capsule Take 1 capsule (120 mg total) by mouth daily. active Problems Problem Status Onset Date Problem Type Date of Resolution Source Smoking addiction active 2024-10-09 Problem[facility] Atherosclerosis of [place] artery of extremity with intermittent claudication active 2024-10-09 ProblemAct [facility] Atherosclerosis of [place] artery of both lower extremities with intermittent claudication active EncounterDiagnosisAct [facility] Encounters Encounter Type Encounter Reason Primary Diagnosis Location Date Ambulatory [facility] 10/03/2024 Ambulatory [facility] 10/03/2024 Ambulatory Atherosclerosis of [place] arteries of extremities with intermittent claudication, bilateral legs Atherosclerosis of [place] arteries of extremities with intermittent claudication, bilateral legs [facility] 10/03/2024 Ambulatory Atherosclerosis of [place] arteries of extremities with intermittent claudication, right leg Atherosclerosis of [place] arteries of extremities with intermittent claudication, right leg [facility] 09/27/2024 Care Team Organization Name Specialty Phone Email Start Date End Da te [facility] MARYCARMEN [facility]IVA [facility] 10/03/2024 [facility] 09/27/2024 [facility] 09/20/2024
--- OUTSIDE RECORDS SUMMARY | 2024-10-19 16:20 | XMS_ITS | Encounter Summary ---
Author Organization [facility] Address [address] [place] [id number] Care Team Providers Care Dance Costume Designer Name Role Phone Unavailable Primary Care Provider Unavailabl e Encounter Details Date Type Department Care Team (Late st Contact Info) Description 04/23/2012 Abstract [facility] Health Information Management [address] [place] [address] [id number] Center, Primary Care [address] [place] [address] [phone] Social History Tobacco Use Types Packs/Day Years [...]
== END 2024-10-19 16:28 | disposition home or self-care (01) ==
LOC: HO.HSM 16:03
PROVIDERS: PCP Internal Medicine; Referring Provider Internal Medicine; Visit Provider Registered Nurse
DX: G43.109 Migraine with aura, not intractable, without status migrainosus (principal); R42 Dizziness and giddiness
CPT/HCPCS: 99214

== ENCOUNTER 2024-11-10 08:00 | Outpatient (AMB) | payer OTHER, SELFPAY ==
--- NOTE | 2024-11-10 08:01 | A.OFFPC_ITS ---
Intake Visit Reasons: smoking cessation on bupropion SR Dressage Instructor Required: No Accompanied by: Self / Same As Patient Allergies No Known Allergies Allergy (Verified 11/10/24 08:12) Medication List - Last Reconciled 11/10/24 by Maureen Solano MD amitriptyline 25 mg PO BEDTIME aspirin (Adult Aspirin Regimen) 81 mg PO DAILY bupropion HCl (smoking deter) 150 mg PO BID meclizine 25 mg PO BID PRN omega-3 fatty acids 1,250 mg PO BID ondansetron 4 mg PO DAILY PRN propranolol ER 120 mg PO DAILY rosuvastatin 10 mg PO DAILY vitamin E (dl, acetate) 45 mg PO DAILY Tobacco use date assessed: 11/10/24 Dental Screening Dental Screen Date: 10/13/24 Did you have a dental visit in the last 12 months?: Yes Did you have a dental problem in the last 6 months where you did not have access to dental care?: No Was dental information given to patient?: Patient has dentist HPI smoking cessation on bupropion SR HPI Details - The patient is a 59-year-old female wi th history of peripheral artery disease, coronary artery disease with bilateral carotid stenosis, and dyslipidemia, here via telehealth for follow-up on her smoking cessation with the help of bupropion - She has successfully reduced her cigar ette consumption from 10-12 per day to 5 or fewer per day with the aid of bupropion. - The patient employs a strategy of taki ng a few drags from a cigarette and extinguishing it, using the same cigarette multiple times. - She is actively avoiding smoking lyn ers, such as smoking in the car or after meals. - Her 's continued smoking poses a challenge to her quitting efforts. - Bupropion has been effective without s luther effects and has also reduced her appetite. - The patient is on rosuvastatin for hyp erlipidemia but has not had recent cholesterol monitoring. [facility] Medical History (Updated 11/10/24 @ 08:26 by Maureen Solano MD) PAD (peripheral artery disease) Cigarette smoker motivated to quit Migraine Ventricular bigeminy Esophageal dysmotility Achalasia of the cricopharyngeus muscle S/P angiogram of extremity (02/03/23) Neck pain with history of cervical spinal surgery A-fib Difficulty swallowing Vitamin D deficiency Impaired fasting glucose Mixed dyslipidemia Varicose veins of right lower extremity with inflammation Claudication Tobacco abuse Obesity due to excess calories Surgical History S/P cardiac cath S/P ablation of atrial fibrillation Hx of colonoscopy Peripheral arterial occlusive disease Social History Housing: House Are you a primary infant childcare provider to a significant other at home: No Do you presently have visiting nurse or other home services: No Patient Tobacco Use Status: Current everyday Tobacco user Cigarette Packs Per Day: 0.5 Cigarettes Per Day: 10 e-Cigarette/Vaping Use: Never Used Second Hand Smoke Exposure: Yes service: No Current occupational status: employed Current occupational exposures/hazards: No Cognitive needs: No Hearing needs: No Vision needs: No Questionnaire PHQ-9 Over the last 2 weeks, how often have you been bothered by any of the following problems? 1. Little interest or pleasure in doing things: not at all 2. Feeling down, depressed, or hopeless: not at all 3. Trouble falling or staying asleep, or sleeping too much: not at all 4. Feeling tired or having little energy: not at all 5. Poor appetite or overeating: not at all 6. Feeling bad about yourself - or that you are a failure or have let yourself or your family down: not at all 7. Trouble concentrating on things, such as reading the newspaper or watching television: not at all 8. Moving or speaking so slowly that other people could have noticed. Or the opposite - being so fidgety or restless that you have been moving around a lot more than usual: not at all 9. Thoughts that you would be better off or of hurting yourself in some way: not at all Total score: 0 Depression Screening Interpretation: Negative Depression Screening Done: Yes 91380 - PHQ-9 Billing: Yes Source: Developed by Drs. Ozzie Brandon, Ely Prado, Twin Loaiza and colleagues, with an educational chetna from [employer]. Thrive Questionnaire Date Thrive assessed: 10/13/24 PURNIMA-7 AMB Questionnaire PURNIMA-7 Date PURNIMA - 7 assessed: 11/10/24 Feeling nervous, anxious, or on edge: 0 = Not at all Not being able to stop or control worryin = Not at all Worrying too much about different things: 0 = Not at all Trouble relaxin = Not at all Being so restless that it is hard to sit still: 0 = Not at all Becoming easily annoyed or irritable: 0 = Not at all Feeling afraid as if something awful might happen: 0 = Not at all Total PURNIMA-7 score (0-4 normal; 5-9 mild; 10-14 moderate; 15-21 severe): 0 Source: Developed by Drs. Ozzie Brandon, Ely Prado, Twin Loaiza and colleagues, with an educational chetna from [employer]. PURNIMA-7 Assessment Billing PURNIMA-7 Assessment Tool: PURNIMA-7 Assessment 70248 Review of Systems Const Denies difficulty sleeping, Denies fatigue, Denies fever(s), Denies frequent falls, Denies headache(s) and Denies weakness ENT Denies dizziness, Denies headache(s) and Reports other (Some alteration in taste since starting bupropion) Card Denies chest pain, Denies leg edema, Denies lightheadedness, Denies palpitations, Denies dyspnea and Denies dyspnea on exertion Resp Denies cough, Denies dyspnea and Denies dyspnea on exertion GI Denies abdominal pain, Denies hematochezia, Denies change in stool character and Denies heartburn Musc Denies abnormal gait, Denies muscle weakness, Denies numbness, Denies radiating pain into limb and Denies tingling Neuro Denies abnormal gait, Denies dizziness, Denies frequent falls, Denies headache(s), Denies numbness, Denies tingling and Denies weakness Endo Denies fatigue and Denies palpitations Clement/Lymph Reports no additional complaints Aller/Immun Reports no additional complaints Physical exam (Primary Care) Tobacco/Smoking Status: Tobacco use Status Tobacco use date assessed 11/10/24 11/10/24 08:07 Patient Tobacco Use Status Current everyday Tobacco 11/10/24 08:04 e-Cigarette/Vaping Use Never Used 11/10/24 08:04 PHQ-9: PHQ-9 Score PHQ-9: Total score 0 11/10/24 08:07 Depression Screening Interpretation: Negative Thrive Assessment: Date of Thrive Assessment Date Thrive assessed 10/13/24 11/10/24 08:04 Telehealth Telehealth Telehealth Platform: [facility] Location of provider rendering services: practice address Location of patient: address on file Patient Identification confirmed using: Name, : Yes Telehealth method: video Patient verbally consented to treatment: Yes Patient verbally consented to billing insurance company: Yes Patient informed of any privacy concerns related to visit: Yes Minutes spent on Phone/Video with Pt.: 15 Coding Level of Care Code Tele Est Pt Level 4 (99592) Diagnoses Mixed dyslipidemia E78.2 Bilateral carotid artery stenosis I65.23 Peripheral arterial occlusive disease I77.9 Atherosclerotic cardiovascular disease I25.10 Coronary artery disease involving [place] coronary artery of [place] heart without angina pectoris I25.10 Coronary Disease-Associated Artery/Lesion type: [place] artery [place] vs. transplanted heart: [place] heart Associated angina: without angina Cigarette smoker motivated to quit F17.210 Additional Codes PURNIMA-7 Assessment Billing - PURNIMA-7 Assessment Tool: PURNIMA-7 Assessment 96955 ([id number]) PHQ-9 - 34075 - PHQ-9 Billing: Yes ([id number]) Assessment & Plan Assessment & Plan (1) Mixed dyslipidemia: Code(s): E78.2 - Mixed hyperlipidemia Category: Medical (2) Bilateral carotid artery stenosis: Code(s): I65.23 - Occlusion and stenosis of bilateral carotid arteries Category: Medical (3) Peripheral arterial occlusive disease: Comment: 03/11/2022 right external iliac plasty 02/03/2023 right SFA atherectomy and plasty 11/10/2023 - right SFA plasty and stent 09/06/2024 - diagnostic angiogram Code(s): I77.9 - Disorder of arteries and arterioles, unspecified Category: Surgical (4) Atherosclerotic cardiovascular disease: Code(s): I25.10 - Atherosclerotic heart disease of [place] coronary artery without angina pectoris Category: Medical (5) CAD (coronary artery disease): Code(s): I25.10 - Atherosclerotic heart disease of [place] coronary artery without angina pectoris Category: Medical Qualifiers: Coronary Disease-Associated Artery/Lesion type: [place] artery [place] vs. transplanted heart: [place] heart Associated angina: without angina Qualified Code(s): I25.10 - Atherosclerotic heart disease of [place] coronary artery without angina pectoris (6) Cigarette smoker motivated to quit: Code(s): F17.210 - Nicotine dependence, cigarettes, uncomplicated Category: Social Hx Plan The patient will continue on bupropion as it has been effective in reducing cigarette consumption without causing side effects. She has been advised to continue avoiding smoking triggers and to work on further reducing cigarette use, with the goal of being cigarette-free by the next appointment in February. The patient will have fasting labs done to monitor cholesterol levels before her next appointment, as she is on rosuvastatin for hyperlipidemia. Patient was informed and verbally consented to the use of an ambient scribe for clinic note documentation during this visit. Orders: Orders Aspartate Amino Transferase 02/03/25 E55.9 - Vitamin D deficiency, unspecified, E78.2 - Mixed hyperlipidemia, I25.10 - Atherosclerotic heart disease of [place] coronary artery without angina pectoris, I65.23 - Occlusion and stenosis of bilateral carotid arteries, I77.9 - Disorder of arteries and arterioles, unspecified, R73.01 - Impaired fasting glucose Vitamin D 25-OH Total 02/03/25 E55.9 - Vitamin D deficiency, unspecified, E78.2 - Mixed hyperlipidemia, I25.10 - Atherosclerotic heart disease of [place] coronary artery without angina pectoris, I65.23 - Occlusion and stenosis of bilateral carotid arteries, I77.9 - Disorder of arteries and arterioles, unspecified, R73.01 - Impaired fasting glucose Basic Metabolic Panel Fasting 02/03/25 E55.9 - Vitamin D deficiency, unspecified, E78.2 - Mixed hyperlipidemia, I25.10 - Atherosclerotic heart disease of [place] coronary artery without angina pectoris, I65.23 - Occlusion and stenosis of bilateral carotid arteries, I77.9 - Disorder of arteries and arterioles, unspecified, R73.01 - Impaired fasting glucose Lipid Panel 02/03/25 E55.9 - Vitamin D deficiency, unspecified, E78.2 - Mixed hyperlipidemia, I25.10 - Atherosclerotic heart disease of [place] coronary artery without angina pectoris, I65.23 - Occlusion and stenosis of bilateral carotid arteries, I77.9 - Disorder of arteries and arterioles, unspecified, R73.01 - Impaired fasting glucose Alanine Aminotransferase 02/03/25 E55.9 - Vitamin D deficiency, unspecified, E78.2 - Mixed hyperlipidemia, I25.10 - Atherosclerotic heart disease of [place] coronary artery without angina pectoris, I65.23 - Occlusion and stenosis of bilateral carotid arteries, I77.9 - Disorder of arteries and arterioles, unspecified, R73.01 - Impaired fasting glucose
--- OUTSIDE RECORDS SUMMARY | 2024-11-10 08:03 | XMS_ITS | Encounter Summary ---
Author Organization [facility] Address [address] [place] [address] Care Team Providers Care Reinsurance Analyst Name Role Phone Unknown Primary Care Provider [phone] Maureen Solano MD Primary Care Provider [phone] Encounter Details Date Type Department Care Team (Late st Contact Info) Description 09/20/2024 Scanned Document [facility] Vascular & Endovascular Surgery [place] [address] [phone] Shanice Lyons RN [address] [address] Social History Tobacco Use Types Packs/Day Years [...] Info) Description 01/08/2025 1:00 PM EDT Appointment [facility] Radiology 201 [place] [phone] Vimal Galvan MD [address] [address] 01/08/2025 2:00 PM EDT Office Visit [facility] Vascular & Endovascular Surgery [place] [address] [facility] [address] [place] [address] Vimal Galvan MD [address] [place] [address] 201 [place] [address] documented as of this encounter Visit Diagnoses Not on filedocumented in this encounter Care Teams Reinsurance Analyst Relationship Specialty Start Date End Date Unknown Unknow Provider Address PCP - General 09/25/24 10/02/24 Maureen Solano MD [address] [place] [address] PCP - General Internal Medicine 10/03/24 documented as of this encounter
--- OUTSIDE RECORDS SUMMARY | 2024-11-10 08:03 | XMS_ITS | Encounter Summary ---
Author Organization [facility] Address [address] [place] [phone] Care Team Providers Care Hog Handler Name Role Phone Unavailable Primary Care Provider Unavailabl e Encounter Details Date Type Department Care Team (Late st Contact Info) Description 04/23/2012 Abstract [facility] Health Information Management [address] [place] [phone] Center, Primary Care [address] [place] [address] [phone] Social History Tobacco Use Types Packs/Day Years [...]
== END 2024-11-10 09:14 | disposition home or self-care (01) ==
LOC: HO.HMCC 08:00
PROVIDERS: PCP Internal Medicine; Visit Provider Internal Medicine
DX: E78.2 Mixed hyperlipidemia (principal); I65.23 Occlusion and stenosis of bilateral carotid arteries; I77.9 Disorder of arteries and arterioles, unspecified; I25.10 Atherosclerotic heart disease of native coronary artery without angina pectoris; F17.210 Nicotine dependence, cigarettes, uncomplicated

== ENCOUNTER → 2024-11-10 08:00 | Outpatient (BNVA) | payer OTHER, SELFPAY | PROVIDERS: PCP Internal Medicine; Visit Provider Internal Medicine | DX: I25.10 Atherosclerotic heart disease of native coronary artery without angina pectoris (principal); F17.210 Nicotine dependence, cigarettes, uncomplicated; I73.9 Peripheral vascular disease, unspecified; E78.2 Mixed hyperlipidemia; I65.23 Occlusion and stenosis of bilateral carotid arteries | CPT/HCPCS: 96127 ==

== ENCOUNTER 2025-01-12 06:50 | Outpatient (REF) | payer OTHER, SELFPAY ==
--- OUTSIDE RECORDS SUMMARY | 2025-01-12 06:57 | XMS_ITS | Encounter Summary ---
Author Organization [facility] Address [address] [place] [phone] Care Team Providers Care Hides Soaker Name Role Phone Unavailable Primary Care Provider Unavailabl e Encounter Details Date Type Department Care Team (Late st Contact Info) Description 04/23/2012 Abstract [facility] Health Information Management [address] [place] [address] [phone] Center, Primary Care [address] [place] [address] [phone] Social History Tobacco Use Types Packs/Day Years [...]
--- OUTSIDE RECORDS SUMMARY | 2025-01-12 06:57 | XMS_ITS | Clinical Summary ---
Author Organization [facility] Address [address] [place] [address] Care Team Providers Care Car Coupler Name Role Phone Maureen Solano MD Primary Care Provider Allergies No known active allergies Medications amitriptyline (ELAVIL) 25 MG tablet Take 1 tablet (25 mg total) by mouth nightly. 09/06/2024 Active aspirin enteric coated (Aspir-Low) 81 MG EC tablet Take 1 tablet (81 mg total) by mouth daily. Active [place]-3 Fatty Acids (Fish Oil) 1200 MG Cap 1,200 mg. Active propranolol (INDERAL LA) 120 MG 24 hr capsule Take 1 capsule (120 mg total) by mouth daily. Active Rosuvastatin Calcium 10 MG Capsule Sprinkle 1 capsule (10 mg total). 09/10/2023 Active cholecalciferol 10 MCG (400 UNIT) tablet Take 1 tablet (400 Units total) by mouth daily. Active Active Problems Problem Noted Date Diagnosed Date Smoking addiction 10/09/2024 Atherosclerosis of [place] ar edilma of extremity with intermittent claudication 10/09/2024 Encounters Date Type Department Care Team Description 01/03/2025 Orders Only [facility] Vascular & Endovascular Surgery [address] [place] [phone] Kary Bonner MA Atherosclerosis of sy[place] artery of both lower extremities with intermittent claudication (Primary Dx) 01/02/2025 Telephone [facility] Vascular & Endovascular Surgery [address] [place] [address] Kerry Zarate RN 12/07/2024 Orders Only [facility] Vascular & Endovascular Surgery [address] [phone] Kary Bonner MA Atherosclerosis of syc[place] artery of both lower extremities with intermittent claudication (Primary Dx); Smoking addiction 12/07/2024 Telephone [facility] Vascular & Endovascular Surgery [place] [phone] Kary Bonner MA Appointment 10/19/2024 Orders Only [facility] Vascular & Endovascular Surgery [address] [address] Vimal Galvan MD from Last 3 Months Social History Tobacco Use Types Packs/Day Years Used Date Smoking Tobacco: Never Assessed Comments Unknown Sex and Gender Information Value Date Recorded Sex Assigned at Female 09/27/2024 1:10 PM EDT Legal Sex Female 7:10 PM EST Gender Identity Female 09/27/2024 1:10 PM EDT Sexual Orientation Heterosexual (straight) 09/27 1:10 PM EDT Last Filed Vital Signs Vital Sign [place] Time Taken Comments Blood Pressure 118/66 10/03/2024 11:53 AM EDT Pulse 72 10/03/2024 11:53 AM EDT Temperature - - Respiratory Rate - - Oxygen Saturation 96% 10/03/2024 11:53 AM EDT Inhaled Oxygen Concentration - - Weight - - Height - - Body Mass Index - - Plan of Treatment Upcoming Encounters Date Type Department Care Team (Late st Contact Info) Description 01/22/2025 7:30 AM EDT Office Visit [facility] Vascular & Endovascular Surgery [address] [place] [address] Vimal Galvan MD [address] [address] Health Maintenance Due Date Last Done Comments Hepatitis C Virus Screening 1964 HIV Screening 1977 DTaP/Tdap/Td Vaccines (1 - Tdap) 06/15/1983 Pap Smear (Ages 21-65) 1985 Mammogram 2004 Colonoscopy 2009 Pneumococcal Vaccines 50+ (1 of 1 - PCV) 2014 Zoster (Shingles) Vaccine (1 of 2) 2014 RSV Vaccine 60 years and old er and Patients (1 - Risk 60-74 years 1-dose series) 2024 Influenza Vaccine 11/03/2024 COVID-19 Vaccine (1 - 2023-2 5 season) 2024 Hepatitis B Vaccines Aged Out No long er eligible based on patient's age to complete this topic [place] [address] Care Teams Car Coupler Relationship Specialty Start Date End Date Maureen Solano MD [address] [place] [address] PCP - General Internal Medicine 10/03/24
--- OUTSIDE RECORDS SUMMARY | 2025-01-12 06:57 | XMS_ITS | Clinical Summary ---
Author Organization [facility] Address [address] [place] [phone] Care Team Providers Care Software Intern Name Role Phone Unavailable Primary Care Provider [...] 2 Dose Standard Series) 2014 Influenza vaccine 11/03/2024 Covid-19 vaccine series (1 - season) 2024 RSV Immunization (1 - 1-dose 75+ series) 06/15/2039 Meningococcal B Vaccine Aged Out No l onger eligible based on patient's age to complete this topic Meningococcal Vaccine Aged Out No deisi ramirez eligible based on patient's age to complete this topic
--- OUTSIDE RECORDS SUMMARY | 2025-01-12 06:57 | XMS_ITS | Encounter Summary ---
Author Organization [facility] Address [address] [place] [address] Care Team Providers Care Electrical Linesworker Name Role Phone Unknown Primary Care Provider [phone] Maureen Solano MD Primary Care Provider Encounter Details Date Type Department Care Team (Late st Contact Info) Description 09/20/2024 Scanned Document [facility] Vascular & Endovascular Surgery [address] [phone] Shanice Lyons RN 201 [facility] 201 [place] [address] Social History Tobacco Use Types Packs/Day Years [...] Description 01/22/2025 7:30 AM EDT Office Visit [facility] Vascular & Endovascular Surgery [address] [place] [phone] Vimal Galvan MD 201 [facility] 201 [place] [address] documented as of this encounter Visit Diagnoses Not on filedocumented in this encounter Care Teams Electrical Linesworker Relationship Specialty Start Date End Date Unknown Unknow Provider Address PCP - General 09/25/24 10/02/24 Maureen Solano MD [address] [place] [address] PCP - General Internal Medicine 10/03/24 documented as of this encounter
[2025-01-12 10:10] LABS: MANUAL DIFF FLAG NO
[2025-01-12 10:16] LABS: Hematocrit 44.7 % (37.0-47.0); Hemoglobin 14.6 g/dl (12.0-16.0); Imm Gran Abs Auto 0.05 X10*3/uL (0.00-0.03); Imm Gran Pct Auto 0.5 % (0.0-0.4); Lymphocytes Absolute Auto 3.3 X10*3/uL (1.2-4.9); Mean Corpuscular HGB Conc 32.7 g/dl (31.0-35.0); Mean Corpuscular Hemoglobin 30.7 pg (27.0-33.0); Mean Corpuscular Volume 94.1 fL (80.0-98.0); NRBC Abs Auto 0.000 X10*3/uL (0.0-0.012); NRBC Pct Auto 0.0 /100WBC (0.0-0.2); Platelet Count 215 X10*3/uL (160-400); Red Blood Count 4.75 X10*6/uL (4.20-5.50); White Blood Count 9.8 X10*3/uL (4.8-10.8)
[2025-01-12 10:54] LABS: Anion Gap 13 (12-20); Blood Urea Nitrogen 12 mg/dL (9-16); Calcium 9.4 mg/dL (8.4-10.2); Carbon Dioxide 25 mmol/L (22-29); Chloride 108 mmol/L (96-108); Cholesterol 130 mg/dL (<200); Estimated Glomerular Filt Rate > 60; HDL Cholesterol 33 mg/dL (>40); Potassium 4.8 mmol/L (3.3-5.1); Sodium 141 mmol/L (135-145); Triglycerides 214 mg/dL (<150)
== END 2025-01-12 06:51 | disposition home or self-care (01) ==
LOC: HO.HMGCLDS 06:50
PROVIDERS: PCP Internal Medicine; Visit Provider Surgery Vascular Surgery
DX: Z13.1 Encounter for screening for diabetes mellitus (principal); I70.213 Atherosclerosis of native arteries of extremities with intermittent claudication, bilateral legs; F17.200 Nicotine dependence, unspecified, uncomplicated
CPT/HCPCS: 36415; 80048; 80061; 83036; 83721; 85025

== ENCOUNTER 2025-02-03 10:13 | Outpatient (REF) | payer OTHER, SELFPAY ==
--- OUTSIDE RECORDS SUMMARY | 2025-02-03 10:17 | XMS_ITS | Encounter Summary ---
Author Organization [facility] Address [address] [place] [address] Care Team Providers Care Chore Worker Name Role Phone Maureen Solano MD Primary Care Provider [phone] Encounter Details Date Type Department Care Team (Late st Contact Info) Description 01/18/2025 Telephone [facility] Vascular & Endovascular Surgery [address] 201 [place] [phone] [place], [place] 201 [facility] 201 [place] [address] Social History Tobacco Use Types Packs/Day Years [...] Care Team (Late st Contact Info) Description 03/13/2025 2:30 PM EST Ancillary Procedure [facility] Vascular & Endovascular Surgery [address] [place] [phone] Vimal aGlvan MD 201 [facility] 201 [place] [address] 03/13/2025 3:00 PM EST Ancillary Procedure [facility] Vascular & Endovascular Surgery [address] [place] [address] Vimal Galvan MD [address] [place] [address] 03/13/2025 4:00 PM EST Office Visit [facility] Vascular & Endovascular Surgery [address] [place] [address] Vimal Galvan MD [address] [place] [phone] 04/17/2025 7:30 AM EST Ancillary Procedure [facility] Vascular & Endovascular Surgery [address] [phone] Vmial Galvan MD [address] [place] [address] 04/17/2025 8:00 AM EST Office Visit [facility] Vascular & Endovascular Surgery [address] [phone] Vimal Galvan MD [address] [place] [address] documented as of this encounter Visit Diagnoses Not on filedocumented in this encounter Care Teams Chore Worker Relationship Specialty Start Date End Date Maureen Solano MD [address] [place] [address] PCP - General Internal Medicine 10/03/24 documented as of this encounter
--- OUTSIDE RECORDS SUMMARY | 2025-02-03 10:17 | XMS_ITS | Encounter Summary ---
Author Organization [facility] Address [address] [place] [phone] Care Team Providers Care Research Nurse Name Role Phone Unavailable Primary Care Provider Unavailabl e Encounter Details Date Type Department Care Team (Late st Contact Info) Description 04/23/2012 Abstract [facility] Health Information Management [address] [place] [phone] Center, Primary Care [address] [place] [address] [phone] Social History Tobacco Use Types Packs/Day Years [...]
--- OUTSIDE RECORDS SUMMARY | 2025-02-03 10:17 | XMS_ITS | Encounter Summary ---
Author Organization Formerly [facility] Address [address] [place] [id number] Care Team Providers Care Life Coach Name Role Phone Unknown Primary Care Provider [phone] Maureen Solano MD Primary Care Provider Encounter Details Date Type Department Care Team (Late st Contact Info) Description 09/20/2024 Scanned Document [facility] Vascular & Endovascular Surgery [address] [phone] Shanice Lyons RN 201 [facility] 201 [place] [address] Social History Tobacco Use Types Packs/Day Years [...] Description 03/13/2025 2:30 PM EST Ancillary Procedure [facility] Surgery [address] [place] [phone] Viaml Galvan MD 201 [facility] 201 [place] [address] 03/13/2025 3:00 PM EST Ancillary Procedure [facility] Endovascular Surgery [address] [phone] Vimal Galvan MD [address] [place] [phone] 03/13/2025 4:00 PM EST Office Visit [facility] End[facility] Surgery [address] [phone] Vimal Galvan MD [address] [place] [phone] 04/17/2025 7:30 AM EST Ancillary Procedure [facility] Surgery [address] [phone] Vimal Gavlan MD [address] [place] [phone] 04/17/2025 8:00 AM EST Office Visit [facility]ovascular Surgery [address] [phone] Vimal Galvan MD [address] [place] [phone] documented as of this encounter Visit Diagnoses Not on filedocumented in this encounter Care Teams Life Coach Relationship Specialty Start Date End Date Unknown Unknow Provider Address PCP - General 09/25/24 10/02/24 Maureen Solano MD [address] [place] [address] PCP - General Internal Medicine 10/03/24 documented as of this encounter
--- OUTSIDE RECORDS SUMMARY | 2025-02-03 10:17 | XMS_ITS | Clinical Summary ---
Author Organization [facility] Address [address] [place] [phone] Care Team Providers Care Blower And Compressor Assembler Name Role Phone Unavailable Primary Care Provider [...] vaccine 11/03/2024 Covid-19 vaccine series (1 - 2024- season) 2024 RSV Immunization (1 - 1-dose 75+ series) 06/15/2039 Meningococcal B Vaccine Aged Out No l onger eligible based on patient's age to complete this topic Meningococcal Vaccine Aged Out No deisi ramirez eligible based on patient's age to complete this topic
--- OUTSIDE RECORDS SUMMARY | 2025-02-03 10:17 | XMS_ITS | Clinical Summary ---
Author Organization [facility] Address [address] [place] [address] Care Team Providers Care Health Record Technician Name Role Phone Maureen Solano MD Primary Care Provider Allergies No known active allergies Medications amitriptyline (ELAVIL) 25 MG tablet Take 1 tablet (25 mg total) by mouth nightly. 5 Active aspirin enteric coated (Aspir-Low) 81 MG EC tablet Take 1 tablet (81 mg total) by mouth daily. Active [place]-3 Fatty Acids (Fish Oil) 1200 MG Cap 1,200 mg. Active propranolol (INDERAL LA) 120 MG 24 hr capsule Take 1 capsule (120 mg total) by mouth daily. Active Rosuvastatin Calcium 10 MG Capsule Sprinkle 1 capsule (10 mg total). 4 Active cholecalciferol 10 MCG (400 UNIT) tablet Take 1 tablet (400 Units total) by mouth daily. Active cilostazol (PLETAL) 50 mg tabletIndications :Atherosclerosis of [place] artery of both lower extremities with intermittent claudication Take 1 tablet (50 mg total) by mouth daily. Take 30 mins before or 2 hours after means (breakfast and dinner) 30 tablet 1 5 Active Active Problems Problem Noted Date Diagnosed Date Smoking addiction 10/09/2024 Atherosclerosis of [place] ar edilma of extremity with intermittent claudication 10/09/2024 Encounters Date Type Department Care Team Description 01/24/2025 Orders Only [facility] Vascular & Endovascular Surgery [address] [place] [address] Vimal Galvan MD Atherosclerosis of [place] artery of right lower extremity with intermittent claudication (Primary Dx) 01/22/2025 7:30 AM EDT Office Visit [facility] Vascular & Endovascular Surgery [address] [phone] Vimal Galvan MD Atherosclerosis of [place] artery of both lower extremities with intermittent claudication (Primary Dx) 01/22/2025 Orders Only [facility] Vascular & Endovascular Surgery [address] [phone] Vimal Galvan MD Atherosclerosis of [place] artery of both lower extremities with intermittent claudication (Primary Dx) 01/22/2025 Travel 01/18/2025 Orders Only [facility] Vascular & Endovascular Surgery [address] [place] [phone] Vascular Surgery, Scan 01/18/2025 Telephone [facility] Vascular & Endovascular Surgery [address] [place] [phone] Kary Bonner MA 01/03/2025 Orders Only [facility] Vascular & Endovascular Surgery [address] [place] [phone] Kary Bonner MA Atherosclerosis of [place]ila river artery of both lower extremities with intermittent claudication (Primary Dx) 01/02/2025 Telephone [facility] Vascular & Endovascular Surgery [address] [place] [phone] Kerry Centeno RN 12/07/2024 Orders Only [facility] Vascular & Endovascular Surgery [address] [place] [phone] Kary Bonner MA Atherosclerosis of [place]ila river artery of both lower extremities with intermittent claudication (Primary Dx); Smoking addiction 12/07/2024 Telephone [facility] Vascular & Endovascular Surgery [address] [place] [phone] Kary Bonner MA Appointment from Last 3 Months Social History Tobacco [...] Description 03/13/2025 2:30 PM EST Ancillary Procedure [facility] Vascular & Endovascular Surgery [address] [phone] Vimal Galvan MD [address] [place] [address] 03/13/2025 3:00 PM EST Ancillary Procedure [facility] Vascular & Endovascular Surgery [address] [phone] Vimal Galvan MD [address] [place] [address] 03/13/2025 4:00 PM EST Office Visit [facility] Vascular & Endovascular Surgery [address] [phone] Vimal Galvan MD [address] [place] [phone] 04/17/2025 7:30 AM EST Ancillary Procedure [facility] Vascular & Endovascular Surgery [address] [phone] Vimal Galvan MD 201 [facility] 201 [place], [place] [phone] 04/17/2025 8:00 AM EST Office Visit [facility] Vascular & Endovascular Surgery [place] [address] [facility] [address] [place] [phone] Vimal Galvan MD [address] [phone] Health Maintenance Due Date Last Done Comments Hepatitis C Virus Screening 1964 HIV Screening 1977 DTaP/Tdap/Td Vaccines (1 - Tdap) 06/15/1983 Pap Smear (Ages 21-65) 1985 Mammogram 2004 Colonoscopy 2009 Pneumococcal Vaccines 50+ (1 of 1 - PCV) 2014 RSV Vaccine 50 years and old er and Patients (1 - Risk 50-74 years 1-dose series) 2014 Zoster (Shingles) Vaccine (1 of 2) 2014 Influenza Vaccine 11/03/2024 COVID-19 Vaccine ( - 2023-2 5 season) 2024 Hepatitis B Vaccines Aged Out No long er eligible based on patient's age to complete this topic Procedures Procedure Name Priority Date/Time Associated Diagnosis Comments COMPLETE BLOOD COUNT, WITHOUT DIFFERENTIAL Routine 01/18/2025 1:03 PM EDT HEMOGLOBIN A1C Routine 01/18/2025 1:02 PM EDT LDL, DIRECT Routine 01/18/2025 1:01 PM EDT BASIC METABOLIC PANEL Routine 01/18/2025 12:58 PM EDT CTA ABDOMEN/BILATERAL RUNOFF W W/O CONTRAST Routine 01/18/2025 11:16 AM EDT Atherosclerosis of [place]ila river artery of both lower extremities with intermittent claudication from Last 3 Months Results * COMPLETE BLOOD COUNT, WITHOUT DIFFERENTIAL (01/18/2025 1:03 PM EDT) Blood Blood specimen / Unknown us Scan Vascular Surgery LAB BLOOD ORDERABLES Final Result * Hemoglobin A1C (01/18/2025 1:02 PM EDT) Blood Blood specimen / Unknown us Scan Vascular Surgery LAB BLOOD ORDERABLES Final Result * LDL, Direct (01/18/2025 1:01 PM EDT) Blood Blood specimen / Unknown us Scan Vascular Surgery LAB BLOOD ORDERABLES Final Result * Basic Metabolic Panel (01/18/2025 12:58 PM EDT) Blood Blood specimen / Unknown us Scan Vascular Surgery LAB BLOOD ORDERABLES Final Result * CTA Abdomen/bilateral runoff w w/o contrast (01/18/2025 11:16 AM EDT) Anatomical Region Laterality Modality CTA Body Computed Tomogra phy 01/18/2025 10:4 5 AM EDT 01/18/2025 10:45 AM EDT Impressions 01/23/2025 2:02 PM EDT Vascular: * Diffuse calcific and noncalcified atherosclerosis of the abdominopelvic arteries. No aortic aneurysm or dissection. * There is moderate multifocal atherosclerotic stenosis of the bilateral common and external iliac arteries. 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 * Diminutive caliber of the right proximal superficial femoral artery. * Occluded mid to distal right superficial femoral artery stent. * The right popliteal artery is reconstituted via profunda femoris branches. Two- vessel runoff is seen in the right lower extremity with flow in the anterior tibial artery visualized past the ankle. Flow within the peroneal artery seen up to the ankle. * The proximal left superficial femoral artery is diminutive in caliber and is occluded distally up to the adductor canal. * Three-vessel runoff is seen in the left lower extremity with flow within the anterior tibial artery visualized past the ankle. Flow within the posterior tibial and peroneal arteries is visualized up to the ankle. Nonvascular: * No acute abnormality in the abdomen and pelvis. Electronically signed by: Fadi Fay MD 01/23/2025 02:02 PM EDT RP Thank you for referring your patient to us, Fadi Fay MD [id number] (Electronically Signed - 01/23/2025 14:02) Narrative 01/23/2025 2:02 PM EDT EXAMINATION: CTA ABDOMEN, PELVIS AND LOWER EXTREMITY RUNOFF WITH CONTRAST CLINICAL INFORMATION: Severe left calf pain COMPARISON: None TECHNIQUE: Routine abdominal aorta and lower extremity runoff CTA protocol with contrast was performed. 100 mL of Omnipaque 350 was administered. Images were evaluated on independent dedicated 3-D workstation and 3-D images were reconstructed with concurrent radiologist supervision and subsequently interpreted. This CT examination was performed using dose optimization techniques as appropriate, variously including the following: *Automated exposure control *Adjustment of mA and/or kV according to patient size (this includes techniques or standardized protocols for targeted exams where dose is matched to indication/reason for exam; i.e. extremities or head) *Use of iterative reconstruction technique TOTAL DLP: 1381.7 mGy-cm FINDINGS: Vascular: 1. Distal Thoracic aorta:Normal in caliber. 2. Abdominal aorta: There is multifocal calcific and noncalcific plaques in the abdominal aorta. No abdominal aortic aneurysm or dissection. 3. Mesenteric Arteries:Celiac and superior mesenteric arteries are patent. No flow is seen within the proximal inferior mesenteric artery (images 368-400 series 2). Which gets reconstituted via superior mesenteric artery branches distally. 4. Renal Arteries:An accessory right renal artery is present. The renal arteries are patent. 5. Infrarenal Abdominal Aorta:Severe atherosclerosis without aneurysm. 6. Right Lower Extremity Arterial Perfusion: Multifocal atherosclerosis of the right common iliac artery with at least moderate stenosis, for example image 462 series 2. Multifocal moderate atherosclerosis of the right external iliac artery. Severe atherosclerosis of the right common femoral artery with near complete occlusion (image 82 series 302). The right superficial femoral artery is diminutive in caliber proximally. Stent graft is seen in the mid right superficial femoral artery and is occluded. There is reconstitution of the popliteal artery via profunda femoris branches. 2 vessel runoff (anterior tibial and peroneal) is seen with flow in the anterior tibial artery visualized past the ankle. Flow within the peroneal artery tapers out at the ankle. No discernible flow within the posterior tibial artery. 7. Left Lower Extremity Arterial Perfusion: Multifocal moderate atherosclerosis of the left common iliac artery. The left external iliac artery exhibits multifocal moderate atherosclerosis and is patent. There is severe atherosclerosis of the left common femoral artery, for example image 83 series 302. The left superficial femoral artery is diminutive in caliber in its proximal extent and is occluded distally up to the adductor canal. There is reconstitution via profunda femoris branches. The popliteal artery is patent. Three-vessel runoff is seen with flow within the anterior tibial artery visualized past the ankle. Flow within the posterior tibial and peroneal arteries is visualized up to the ankle. NONVASCULAR: Lung Bases: The visualized lung bases are unremarkable. Liver, Gallbladder and Biliary Tree: The liver is normal in size, shape, and attenuation. No focal hepatic lesion or biliary ductal dilatation is present. The gallbladder is unremarkable with no evidence of radiopaque gallstones, gallbladder wall thickening, or obvious pericholecystic inflammatory changes. Pancreas: Unremarkable. Spleen: Unremarkable. Adrenal Glands: Unremarkable. Kidneys and Ureters: The kidneys are normal in size, shape, and attenuation. No hydronephrosis, hydroureter, or calculi seen. No perinephric stranding. Bladder: Unremarkable. Gastrointestinal Tract: The small and large bowel are unremarkable. The appendix is unremarkable. Abdominal Wall: No significant hernia is appreciated. Lymph Nodes: Normal. Pelvic Viscera: Calcified uterine fibroids. Ovaries are atrophic. Osseous Structures: Unremarkable. Procedure Note Fadi Fay MD - 01/23/2025 EXAMINATION: CTA ABDOMEN, PELVIS AND LOWER EXTREMITY RUNOFF WITH CONTRAST CLINICAL INFORMATION: Severe left calf pain COMPARISON: None TECHNIQUE: Routine abdominal aorta and lower extremity runoff CTA protocol withcontrast was performed. 100 mL of Omnipaque 350 was administered. Imageswere evaluated on independent dedicated 3-D workstation and 3-D imageswere reconstructed with concurrent radiologist supervision and subsequently interpreted. This CT examination was performed using dose optimization techniques asappropriate, variously including the following: *Automated exposure control *Adjustment of mA and/or kV according to patient size (this includestechniques or standardized protocols for targeted exams where dose ismatched to indication/reason for exam; i.e. extremities or head) *Use of iterative reconstruction technique TOTAL DLP: 1381.7 mGy-cm FINDINGS: Vascular: 1. Distal Thoracic aorta:Normal in caliber. 2. Abdominal aorta: There is multifocal calcific and noncalcific plaquesin the abdominal aorta. No abdominal aortic aneurysm or dissection. 3. Mesenteric Arteries:Celiac and superior mesenteric arteries arepatent. No flow is seen within the proximal inferior mesenteric artery(images 368-400 series 2). Which gets reconstituted via superiormesenteric artery branches distally. 4. Renal Arteries:An accessory right renal artery is present. The renalarteries are patent. 5. Infrarenal Abdominal Aorta:Severe atherosclerosis without aneurysm. 6. Right Lower Extremity Arterial Perfusion: Multifocal atherosclerosisof the right common iliac artery with at least moderate stenosis, forexample image 462 series 2. Multifocal moderate atherosclerosis of theright external iliac artery. Severe atherosclerosis of the right common femoral artery with near completeocclusion (image 82 series 302). The right superficial femoral artery isdiminutive in caliber proximally. Stent graft is seen in the mid rightsuperficial femoral artery and is occluded. There is reconstitution of the popliteal artery via profundafemoris branches. 2 vessel runoff (anterior tibial and peroneal) is seenwith flow in the anterior tibial artery visualized past the ankle. Flowwithin the peroneal artery tapers out at the ankle. No discernible flow within the posterior tibial artery. 7. Left Lower Extremity Arterial Perfusion: Multifocal moderateatherosclerosis of the left common iliac artery. The left external iliacartery exhibits multifocal moderate atherosclerosis and is patent. Thereis severe atherosclerosis of the left common femoral artery, for example image 83 series 302. The leftsuperficial femoral artery is diminutive in caliber in its proximal extentand is occluded distally up to the adductor canal. There is reconstitutionvia profunda femoris branches. The popliteal artery is patent. Three-vessel runoff is seen with flow withinthe anterior tibial artery visualized past the ankle. Flow within theposterior tibial and peroneal arteries is visualized up to the ankle. NONVASCULAR: Lung Bases: The visualized lung bases are unremarkable. Liver, Gallbladder and Biliary Tree: The liver is normal in size, shape,and attenuation. No focal hepatic lesion or biliary ductal dilatation ispresent. The gallbladder is unremarkable with no evidence of radiopaquegallstones, gallbladder wall thickening, or obvious pericholecystic inflammatory changes. Pancreas: Unremarkable. Spleen: Unremarkable. Adrenal Glands: Unremarkable. Kidneys and Ureters: The kidneys are normal in size, shape, andattenuation. No hydronephrosis, hydroureter, or calculi seen. Noperinephric stranding. Bladder: Unremarkable. Gastrointestinal Tract: The small and large bowel are unremarkable. Theappendix is unremarkable. Abdominal Wall: No significant hernia is appreciated. Lymph Nodes: Normal. Pelvic Viscera: Calcified uterine fibroids. Ovaries are atrophic. Osseous Structures: Unremarkable. IMPRESSION: Vascular: * Diffuse calcific and noncalcified atherosclerosis of the abdominopelvicarteries. No aortic aneurysm or dissection. * There is moderate multifocal atherosclerotic stenosis of the bilateralcommon and external iliac arteries. 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 * Diminutive caliber of the right proximal superficial femoral artery. * Occluded mid to distal right superficial femoral artery stent. * The right popliteal artery is reconstituted via profunda femorisbranches. Two-vessel runoff is seen in the right lower extremity with flowin the anterior tibial artery visualized past the ankle. Flow within theperoneal artery seen up to the ankle. * The proximal left superficial femoral artery is diminutive in caliberand is occluded distally up to the adductor canal. * Three-vessel runoff is seen in the left lower extremity with flowwithin the anterior tibial artery visualized past the ankle. Flow withinthe posterior tibial and peroneal arteries is visualized up to theankle. Nonvascular: * No acute abnormality in the abdomen and pelvis. Electronically signed by: Fadi Fay MD 01/23/2025 02:02 PM EDTRP Thank you for referring your patient to us, Fadi Fay MD [id number] (Electronically Signed - 01/23/2025 14:02) us Vimal Galvan MD IMG CT ORDERABLES Final Result from Last 3 Months Insurance [facility]-[id number] Care Teams Health Record Technician Relationship Specialty Start Date End Date Maureen Solano MD [address] [place] [address] PCP - General Internal Medicine 10/03/24
[2025-02-03 11:52] LABS: Alanine Aminotransferase 20 U/L (0-31); Anion Gap 11 (12-20); Aspartate Amino Transferase 26 U/L (5-31); Blood Urea Nitrogen 14 mg/dL (9-16); Calcium 9.1 mg/dL (8.4-10.2); Carbon Dioxide 26 mmol/L (22-29); Chloride 108 mmol/L (96-108); Cholesterol 126 mg/dL (<200); Estimated Glomerular Filt Rate > 60; HDL Cholesterol 37 mg/dL (>40); Potassium 4.4 mmol/L (3.3-5.1); Sodium 141 mmol/L (135-145); Triglycerides 169 mg/dL (<150)
== END 2025-02-03 10:14 | disposition home or self-care (01) ==
LOC: HO.HMGCLDS 10:13
PROVIDERS: PCP Internal Medicine; Visit Provider Internal Medicine
DX: I25.10 Atherosclerotic heart disease of native coronary artery without angina pectoris (principal); I77.9 Disorder of arteries and arterioles, unspecified; I65.23 Occlusion and stenosis of bilateral carotid arteries; E78.2 Mixed hyperlipidemia; R73.01 Impaired fasting glucose; E55.9 Vitamin D deficiency, unspecified
CPT/HCPCS: 36415; 80048; 80061; 82306; 84450; 84460

== ENCOUNTER 2025-02-08 15:50 | Outpatient (AMB) | payer OTHER, SELFPAY ==
--- NOTE | 2025-02-08 16:34 | MHC.PC.OV ---
Vital Signs 02/08/25 16:41 Height 5 ft 6 in Weight 210 lb BMI 33.9 BP 100/72 Blood Pressure Location Lt brachial Position Sitting Respiration 16 Pulse 74 Pulse Source Pulse Oximeter Temp 98.0 F Temp Source Oral Pulse Oximetry (%) 96 Oxygen Delivery Method Room Air Intake Visit Reasons: PE Intake Note: Pt is here today for her PE Last mammogram 06/23/24, papsmear 01/14/23, colonoscopy 10/18/17 Talent Acquisition Specialist Required: No Allergies No Known Allergies Allergy (Verified 02/08/25 17:03) Medication List - Last Reconciled 02/08/25 by Maureen Solano MD amitriptyline 25 mg PO BEDTIME aspirin (Adult Aspirin Regimen) 81 mg PO DAILY bupropion HCl (smoking deter) 150 mg PO BID cilostazol 50 mg PO BID meclizine 25 mg PO BID PRN omega-3 fatty acids 1,250 mg PO BID ondansetron 4 mg PO DAILY PRN propranolol ER 120 mg PO DAILY 90 days rosuvastatin 10 mg PO DAILY vitamin E (dl, acetate) 45 mg PO DAILY Tobacco use date assessed: 02/08/25 Dental Screening Dental Screen Date: 02/08/25 Did you have a dental visit in the last 12 months?: No Did you have a dental problem in the last 6 months where you did not have access to dental care?: No Was dental information given to patient?: Patient has dentist [facility] Medical History (Updated 02/08/25 @ 17:30 by Maureen Solano MD) PAD (peripheral artery disease) Cigarette smoker motivated to quit Migraine Ventricular bigeminy Esophageal dysmotility Achalasia of the cricopharyngeus muscle S/P angiogram of extremity (02/03/23) Neck pain with history of cervical spinal surgery A-fib Difficulty swallowing Vitamin D deficiency Impaired fasting glucose Mixed dyslipidemia Varicose veins of right lower extremity with inflammation Claudication Tobacco abuse Obesity due to excess calories Surgical History S/P cardiac cath S/P ablation of atrial fibrillation Hx of colonoscopy Peripheral arterial occlusive disease Social History Housing: House Are you a primary childcare provider to a significant other at home: No Do you presently have visiting nurse or other home services: No Patient Tobacco Use Status: Current everyday Tobacco user Cigarette Packs Per Day: 0.5 Cigarettes Per Day: 5 e-Cigarette/Vaping Use: Never Used Second Hand Smoke Exposure: Yes service: No Current occupational status: employed Current occupational exposures/hazards: No Cognitive needs: No Hearing needs: No Vision needs: No Questionnaire Thrive Questionnaire Date Thrive assessed: 10/13/24 I am a: Patient What is your living situation today?: I have a steady place to live Within the past 12 months, did the food you bought not last and you didn't have the money to get more?: Never true Within the past 12 months, did you worry whether your food would run out before you got money to buy more?: Never true Do you have trouble paying for medicines?: No Do you have trouble getting transportation to medical appointments?: No Do you have trouble paying your heating and electricity bill?: No Do you have trouble with day-to-day activities such as bathing, preparing meals, shopping, managing finances, etc.?: No Are you currently unemployed and looking for a job?: No Are you interested in more education?: No Please select the resources that you would like help with: None Currently or been in a relationship where the following occur: No concerns reported THRIVE Score: 0 AUDIT C Alcohol Use Questionnaire (AUDIT-C) 1. How often do you have a drink containing alcohol?: Never Total Score: 0 PURNIMA-7 AMB Questionnaire PURNIMA-7 Date PURNIMA - 7 assessed: 11/10/24 Feeling nervous, anxious, or on edge: 1 = Several days Not being able to stop or control worryin = Several days Worrying too much about different things: 1 = Several days Trouble relaxin = Not at all Being so restless that it is hard to sit still: 0 = Not at all Becoming easily annoyed or irritable: 1 = Several days Feeling afraid as if something awful might happen: 0 = Not at all Total PURNIMA-7 score (0-4 normal; 5-9 mild; 10-14 moderate; 15-21 severe): 4 Source: Developed by Drs. Ozzie Brandon, Ely Prado, Twin Loaiza and colleagues, with an educational chetna from [employer]. Physical exam (Primary Care) Vital Signs: Last Vital Signs Temp 98.0 F 02/08/25 16:41 Pulse 74 02/08/25 16:41 Resp 16 02/08/25 16:41 BP 100/72 02/08/25 16:41 Pulse Ox 96 02/08/25 16:41 Oxygen Delivery Method Room Air 02/08/25 16:41 BMI result Body Mass Index 33.9 Tobacco/Smoking Status: Tobacco use Status Tobacco use date assessed 02/08/25 02/08/25 16:44 Patient Tobacco Use Status Current everyday Tobacco 02/08/25 16:35 e-Cigarette/Vaping Use Never Used 02/08/25 16:35 Thrive Assessment: Date of Thrive Assessment Date Thrive assessed 10/13/24 02/08/25 16:35 Currently or been in a relationship where the following occur: No concerns reported Office Procedures Flu Questionnaire Does the patient have a severe egg allergy?: No Does the patient have severe life threatening allergies?: No Does the patient have a fever or illness today?: No Has the patient ever had Guillain-Campbell Syndrome?: No Has the patient ever had any past reaction to a flu shot?: No Immunizations Fluarix [id number] (PF) 45 mcg (15 mcg x 3)/0.5 mL IM syringe Performing Provider: Maureen Solano MD Performing Location: [facility] – [place] [facility] Administered by: Elizabeth Wall CMA on 02/08/25 16:49 Dose Route Admin Location Dispensed Lot Number Expiration Date [facility] [place] International Account Executive 0.5 mL IM Left Deltoid 0.5 mL [id number] 10/02/25 [id number] [email or web address] VIS Given Date VIS Provided VIS Publication Date 02/08/25 Single Vaccine 24 Eligibility Eligibility Date Funding Source Not [facility] Eligible 02/08/25 Private Coding Diagnoses Peripheral arterial occlusive disease I77.9 Obesity due to excess calories E66.09 Mixed dyslipidemia E78.2 Impaired fasting glucose R73.01 Achalasia of the cricopharyngeus muscle K22.0 Bilateral carotid artery stenosis I65.23 Atherosclerotic cardiovascular disease I25.10 Migraine with aura and without status migrainosus, not intractable G43.109 Status migrainosus presence: without status migrainosus Intractability: not intractable Assessment & Plan Assessment & Plan (1) Peripheral arterial occlusive disease: Comment: 03/11/2022 right external iliac plasty 02/03/2023 right SFA atherectomy and plasty 11/10/2023 - right SFA plasty and stent 09/06/2024 - diagnostic angiogram Code(s): I77.9 - Disorder of arteries and arterioles, unspecified Category: Surgical (2) Obesity due to excess calories: Code(s): E66.09 - Other obesity due to excess calories Category: Medical (3) Mixed dyslipidemia: Code(s): E78.2 - Mixed hyperlipidemia Category: Medical (4) Impaired fasting glucose: Code(s): R73.01 - Impaired fasting glucose Category: Medical (5) Achalasia of the cricopharyngeus muscle: Code(s): K22.0 - Achalasia of cardia Category: Medical (6) Bilateral carotid artery stenosis: Code(s): I65.23 - Occlusion and stenosis of bilateral carotid arteries Category: Medical (7) Atherosclerotic cardiovascular disease: Code(s): I25.10 - Atherosclerotic heart disease of [place] coronary artery without angina pectoris Category: Medical (8) Migraine with aura: Code(s): G43.109 - Migraine with aura, not intractable, without status migrainosus Category: Medical Qualifiers: Status migrainosus presence: without status migrainosus Intractability: not intractable Qualified Code(s): G43.109 - Migraine with aura, not intractable, without status migrainosus Orders: Orders Aspartate Amino Transferase 07/04/25 E66.09 - Other obesity due to excess calories, E78.2 - Mixed hyperlipidemia, I25.10 - Atherosclerotic heart disease of [place] coronary artery without angina pectoris, I65.23 - Occlusion and stenosis of bilateral carotid arteries, I77.9 - Disorder of arteries and arterioles, unspecified, R73.01 - Impaired fasting glucose Basic Metabolic Panel Fasting 07/04/25 E66.09 - Other obesity due to excess calories, E78.2 - Mixed hyperlipidemia, I25.10 - Atherosclerotic heart disease of [place] coronary artery without angina pectoris, I65.23 - Occlusion and stenosis of bilateral carotid arteries, I77.9 - Disorder of arteries and arterioles, unspecified, R73.01 - Impaired fasting glucose Influenza [id number] Immunization Today Z23 - Encounter for immunization Lipid Panel 07/04/25 E66.09 - Other obesity due to excess calories, E78.2 - Mixed hyperlipidemia, I25.10 - Atherosclerotic heart disease of [place] coronary artery without angina pectoris, I65.23 - Occlusion and stenosis of bilateral carotid arteries, I77.9 - Disorder of arteries and arterioles, unspecified, R73.01 - Impaired fasting glucose Alanine Aminotransferase 07/04/25 E66.09 - Other obesity due to excess calories, E78.2 - Mixed hyperlipidemia, I25.10 - Atherosclerotic heart disease of [place] coronary artery without angina pectoris, I65.23 - Occlusion and stenosis of bilateral carotid arteries, I77.9 - Disorder of arteries and arterioles, unspecified, R73.01 - Impaired fasting glucose Hemoglobin A1c 07/04/25 E66.09 - Other obesity due to excess calories, E78.2 - Mixed hyperlipidemia, I25.10 - Atherosclerotic heart disease of [place] coronary artery without angina pectoris, I65.23 - Occlusion and stenosis of bilateral carotid arteries, I77.9 - Disorder of arteries and arterioles, unspecified, R73.01 - Impaired fasting glucose Medications: Refilled bupropion HCl (smoking deter) Take 1 tablet in the morning for the 1st 3 days, and then increase it to twice a day dosing , at least 8 hours apart afterwards. Do not take later than 15:00 150 mg PO BID 60 tabs 3RF F17.210 - Nicotine dependence, cigarettes, uncomplicated, I25.10 - Atherosclerotic heart disease of [place] coronary artery without angina pectoris, I77.9 - Disorder of arteries and arterioles, unspecified
[2025-02-08 16:41] VITALS: BP 100/72; PULSE 74; RESP 16; TEMP 36.7; O2SAT 96; BMI 33.9
--- OUTSIDE RECORDS SUMMARY | 2025-02-08 18:31 | XMS_ITS | Clinical Summary ---
Author Organization [facility] Address [address] [place] [address] Care Team Providers Care Certified Industrial Hygienist Name Role Phone Maureen Solano MD Primary Care Provider Allergies No known active allergies Medications amitriptyline (ELAVIL) 25 MG tablet Take 1 tablet (25 mg total) by mouth nightly. 5 Active aspirin enteric coated (Aspir-Low) 81 MG EC tablet Take 1 tablet (81 mg total) by mouth daily. Active [place]-3 Fatty Acids (Fish Oil) 1200 MG Cap [...] cilostazol (PLETAL) 50 mg tabletIndications :Atherosclerosis of [place] artery of both lower extremities with intermittent claudication Take 1 tablet (50 mg total) by mouth daily. Take 30 mins before or 2 hours after means (breakfast and dinner) 30 tablet 1 5 Active Active Problems Problem Noted Date Diagnosed Date Smoking addiction 10/09/2024 Atherosclerosis of [place] ar edilma of extremity with intermittent claudication 10/09/2024 Encounters Date Type Department Care Team Description 01/22/2025 7:30 AM EDT Office Visit [facility] Vascular & Endovascular Surgery [address] [place] [address] Vimal Galvan MD Atherosclerosis of [place] artery of both lower extremities with intermittent claudication (Primary Dx) 01/22/2025 Travel from Last 3 Months Social History Tobacco [...] Routine 01/18/2025 11:16 AM EDT Atherosclerosis of [place] artery of both lower extremities with intermittent [...] your patient to us, Fadi Fay MD [id number] (Electronically Signed - 01/23/2025 14:02) Narrative 01/23/2025 [...] your patient to us, Fadi Fay MD [id number] (Electronically Signed - 01/23/2025 14:02) Vimal Galvan MD IMG CT ORDERABLES Final Result from Last [address] [place] [address] Care Teams Certified Industrial Hygienist Relationship Specialty Start Date End Date Maureen Solano MD [address], [place] [phone] PCP - General Internal Medicine 10/03/24
--- OUTSIDE RECORDS SUMMARY | 2025-02-08 18:31 | XMS_ITS | Encounter Summary ---
Author Organization [facility] Address [address] [place] [address] Care Team Providers Care High Court Justice Name Role Phone Unknown Primary Care Provider [phone] Maureen Solano MD Primary Care Provider [phone] Encounter Details Date Type Department Care Team (Late st Contact Info) Description 09/20/2024 Scanned Document [facility] Vascular & Endovascular Surgery [address] [place] [address] Shanice Lyons RN [address] [facility] [address] [place] [address] Social History Tobacco Use Types Packs/Day Years Used Date Smoking Tobacco: Never Assessed Comments Unknown Sex and Gender Information Value Date Recorded Sex Assigned at Female 09/27/2024 1:10 PM EDT Legal Sex Female 7:10 PM EST Gender Identity Female 09/27/2024 1:10 PM EDT Sexual Orientation Heterosexual (straight) 09/27 1:10 PM EDT documented as of this encounter Plan of Treatment Not on file documented as of this encounter Visit Diagnoses Not on filedocumented in this encounter Care Teams High [address] Justice Relationship Specialty Start Date End Date Unknown Unknow Provider Address PCP - General 09/25/24 10/02/24 Maureen Solano MD [address] [place] [address] [place] [address] PCP - General Internal Medicine 10/03/24 documented as of this encounter
--- OUTSIDE RECORDS SUMMARY | 2025-02-08 18:31 | XMS_ITS | Clinical Summary ---
Author Organization [facility] Address [address] [place] [phone] Care Team Providers Care Lead Quality Control Technician Name Role Phone Unavailable Primary Care Provider [...]
--- OUTSIDE RECORDS SUMMARY | 2025-02-08 18:31 | XMS_ITS | Encounter Summary ---
Author Organization [facility] Address [address] [place] [phone] Care Team Providers Care Bread Molder Name Role Phone Unavailable Primary Care Provider Unavailabl e Encounter Details Date Type Department Care Team (Late st Contact Info) Description 04/23/2012 Abstract [facility] Health Information Management [address] [place] [phone] Center, Primary Care [address] [place] [phone] Social History Tobacco Use Types Packs/Day Years [...]
== END 2025-02-08 18:18 | disposition home or self-care (01) ==
LOC: HO.HMCC 15:51
PROVIDERS: PCP Internal Medicine; Visit Provider Internal Medicine
DX: Z23 Encounter for immunization (principal)

== ENCOUNTER → 2025-02-08 15:50 | Outpatient (BNVA) | payer OTHER, SELFPAY | PROVIDERS: PCP Internal Medicine; Visit Provider Internal Medicine | DX: Z00.01 Encounter for general adult medical examination with abnormal findings (principal); E78.2 Mixed hyperlipidemia; I73.9 Peripheral vascular disease, unspecified; F17.210 Nicotine dependence, cigarettes, uncomplicated; R73.01 Impaired fasting glucose; K22.0 Achalasia of cardia; I65.23 Occlusion and stenosis of bilateral carotid arteries; I25.10 Atherosclerotic heart disease of native coronary artery without angina pectoris; G43.109 Migraine with aura, not intractable, without status migrainosus; E66.01 Morbid (severe) obesity due to excess calories; Z23 Encounter for immunization; Z68.35 Body mass index [BMI] 35.0-35.9, adult | CPT/HCPCS: 90471; 90656; 96127 ==